=== PATIENT | female | born 1985 | race Caucasian/White ===

== ENCOUNTER → 2016-10-04 | Outpatient (CLI) | payer OTHER ==
[~2016-10-04] MED LIST: CYCL10TA6 PO; ESCI10TA17 PO; GABA1CAP5 PO; GADAVIST IV PRN; IBUP-1451 PO; LORA-741 PO; NRN400 PO; RXC5 PO; SYMIN/8045 INH; VNTHFA/IN INH
--- NOTE | 2016-10-04 11:22 | DIAGNOSTIC IMAGING REPORT ---
MRI OF THE LUMBAR SPINE WITH AND WITHOUT CONTRAST CLINICAL HISTORY: Acute back pain radiating into left lower extremity. COMPARISON STUDY: Lumbar spine MRI June 30, 2016. TECHNIQUE: Utilizing a 0.7 Georgette open magnet and dedicated coil, multiplanar, multiecho imaging of the lumbar spine was performed before and after uneventful IV administration of 14 mL of Gadavist. FINDINGS: Alignment of the lumbar spine is anatomic. For purposes of numbering on this exam, the L5-S1 disc space is assigned to axial image 23 of 25. Vertebral body heights are maintained. There is no marrow replacement. Discogenic changes are noted at the L4-L5 level. There is no intracanalicular mass or fluid collection. The conus terminates at the lower L1 level. Paravertebral soft tissues are unremarkable. There are findings suggestive of a left-sided hemilaminotomy at the L4-L5 level. L1-2: The central canal and neural foramen are patent. L2-3: The central canal and neural foramina are patent L3-4: There is mild disc bulge with a tiny central disc protrusion and annular tear. This is slightly increased since prior exam. The central canal and neural foramen are patent. L4-5: There is disc space narrowing with a disc bulge and central disc protrusion. This is unchanged. There is mild narrowing of the central canal and lateral recesses as well as mild narrowing of the right neural foramen. L5-S1: The central canal and neural foramen are patent. IMPRESSION: 1. Postsurgical findings at the L4-L5 level, as described above. 2. Disc bulge with small central disc protrusion at L4-L5 that result in mild narrowing of the central canal, lateral recesses and right neural foramen, similar to prior MRI. 3. Disc bulge with tiny central disc protrusion and annular tear at L3-L4 which is slightly increased since prior exam. No significant central canal stenosis at this level. Electronically signed by: Mariano Alegria M.D. 10/04/2016 11:21 AM Dictated Date/Time: 10/04/2016 11:12 AM
== END | disposition home or self-care (01) ==
LOC: C.OPENMRI 08:54
PROVIDERS: ATTEND Family Medicine
DX: M51.26 Other intervertebral disc displacement, lumbar region (principal)

== ENCOUNTER 2016-11-29 06:04 | Inpatient (IN) | payer OTHER ==
[2016-11-25 11:46] VITALS: BMI 48.0
--- NOTE | 2016-11-25 12:32 | PAT Medication Instructions ---
Service Date Nov 25, 2016. Current Home Medication List Albuterol Hfa (Ventolin Hfa), 2 PUFFS INH Q4 Budesonide/Formoterol Fumarate (Symbicort 80/4.5 Inhaler), 2 PUFFS INH BID Cyclobenzaprine Hcl (Flexeril), 1 TAB PO HS PRN for Muscle Spasms Escitalopram (Lexapro), 10 MG PO HS Gabapentin (Gabapentin), 400 MG PO BID Gabapentin (Neurontin), 1,200 MG PO HS Ibuprofen Tab (Motrin), 800 MG PO DAILY PRN for Pain Lorazepam (Ativan), 0.5 MG PO BID PRN for Anxiety/Agitation Medication Instructions For Your Scheduled Surgery Ibuprofen Tab (Motrin), 800 MG PO DAILY PRN for Pain (patient stopped around ) - Take the following medications the morning of surgery with a sip of water: Lorazepam (Ativan), 0.5 MG PO BID PRN for Anxiety/Agitation Gabapentin (Gabapentin) Albuterol Hfa (Ventolin Hfa), 2 PUFFS INH Q4 (if needed/ bring with you to hospital on day of surgery) Budesonide/Formoterol Fumarate (Symbicort 80/4.5 Inhaler), 2 PUFFS INH BID - Take the following medications as scheduled the night before surgery: Lorazepam (Ativan), 0.5 MG PO BID PRN for Anxiety/Agitation Gabapentin (Neurontin) Escitalopram (Lexapro), 10 MG PO HS Cyclobenzaprine Hcl (Flexeril), 1 TAB PO HS PRN for Muscle Spasms Albuterol Hfa (Ventolin Hfa), 2 PUFFS INH Q4 Budesonide/Formoterol Fumarate (Symbicort 80/4.5 Inhaler), 2 PUFFS INH BID If you have any questions please call us at [phone] or [phone] ( [place]) or [phone]
--- NOTE | 2016-11-25 12:42 | HISTORY & PHYSICAL EXAMINATION ---
DATE OF ADMISSION: 11/29/2016 HISTORY OF PRESENT ILLNESS: The patient presents to our office with a complaint of pain down her left leg to her foot. Standing and walking causes her legs to buckle and give out on her. She has trialed pain management injections which lasted about a week to week and half. Denies bowel or bladder changes. She did have prior laminectomy in 2012 at L4-L5 on the left. PAST MEDICAL HISTORY: The patient's medical history is significant for asthma, anxiety and depression, factor V clotting disorder, obesity. PAST SURGICAL HISTORY: Significant for prior laminectomy in 2012, cholecystectomy, left foot surgery, appendectomy. ALLERGIES: INCLUDE CODEINE AND FIBERGLASS. CURRENT MEDICATIONS: Include gabapentin, ibuprofen, ProAir, Symbicort, and Flexeril. All dosages unknown and not listed. SOCIAL HISTORY: She is on disability. She smokes 20 cigarettes a day. Denies alcohol. Denies drug use. FAMILY HISTORY: Significant for high cholesterol, thyroid disease, diabetes, hypertension, arthritis. REVIEW OF SYSTEMS: Significant for coughing, wheezing, asthma, weakness, back and leg pain. PHYSICAL EXAMINATION: VITAL SIGNS: 5 feet 8, 310 pounds. HEAD, EYES, EARS, NOSE, AND THROAT: Speech appropriate. CARDIOPULMONARY: No gross abnormalities. ABDOMEN: Soft, nondistended. GENITOURINARY: Deferred. NEUROLOGIC: Cranial nerves II-XII grossly intact. MUSCULOSKELETAL: She has a well-healed lumbar incision. She ambulates around the room favoring the left side. She has decreased sensation on the L4 distribution on the left. She has break-away testing left leg. ASSESSMENT: Spinal stenosis L4-L5, left-sided disc herniation at L3-L4. PLAN: At this point in time, she has trialed and failed conservative therapy, may consider surgical intervention. Surgery would require revision decompression and instrumented fusion, L3-4, L4-5. Risks, benefits, pros, cons, and alternatives were outlined in detail. She would like to proceed with the above-mentioned surgical planning.
--- NOTE | 2016-11-25 13:27 | DIAGNOSTIC IMAGING REPORT ---
CHEST 2 VIEWS ROUTINE CLINICAL HISTORY: pat preoperative evaluation COMPARISON STUDY: No previous studies for comparison. FINDINGS: The bones soft tissues and hemidiaphragms are normal. The cardiomediastinal silhouette is normal. The lungs are clear. The pulmonary vasculature is normal. IMPRESSION: Negative chest. Electronically signed by: Juwan Garcia M.D. 11/25/2016 1:25 PM Dictated Date/Time: 11/25/2016 1:25 PM
[2016-11-25 13:35] LABS: BASO % 0.2 %; BASO ABS # 0.02 K/uL (0-0.2); COMPLETE YES; EOS % 5.2 %; HEMATOCRIT 39.5 % (37-47); IG% 0.2 %; LYMPH % 28.6 %; LYMPH ABS # 2.83 K/uL (1.2-3.4); MEAN CELL VOLUME 87.4 fL (80-100); MEAN CORPUSCULAR HEMOGLOBIN 30.1 pg (25-34); MEAN CORPUSCULAR HGB CONC 34.4 g/dl (32-36); MONO % 8.1 %; NEUT % 57.7 %; PLATELET COUNT 292 K/uL (130-400); RED BLOOD COUNT 4.52 M/uL (4.2-5.4); WHITE BLOOD COUNT 9.88 K/uL (4.8-10.8)
[2016-11-25 14:40] LABS: URINE APPEARANCE CLEAR (CLEAR); URINE BILIRUBIN NEG (NEG); URINE COLOR YELLOW; URINE EPITHELIAL CELL AUTO >30 /lpf (0-5); URINE NITRITE NEG (NEG); URINE SPECIFIC GRAVITY 1.019 (1.000-1.030); UROBILINOGEN NEG (NEG)
[2016-11-25 14:45] LABS: MANUAL MICROSCOPIC REQUIRED? NO; REVIEW REQ? NO
[2016-11-25 15:22] LABS: BUN/CREATININE RATIO 11.6 (10-20); CALCIUM 9.2 mg/dl (8.5-10.1); CREATININE 0.63 mg/dl (0.60-1.20); POTASSIUM 4.2 mmol/L (3.5-5.1)
[~2016-11-29] VITALS: Ht 172.7 cm; Wt 143.9 kg
[2016-11-29] VITALS (8 sets, daily range): BP systolic 116–150; BP diastolic 69–94; PULSE 65–101; TEMP 36.6–36.8; O2SAT 92–98; Ht 172.7 cm; Wt 143.9 kg
[~2016-11-29 06:04] MED LIST changes: +CEFAZOLIN 3000 MG/65 ML D5W IV SCH; -GADAVIST IV PRN; +LACTATED RINGER'S 1000ML 1,000 ML IV SCH; +POLYMYXIN B SULFATE 100,000 UNITS in NSS 100ML IR SCH; -RXC5 PO; +VANCOMYCIN INJ 400 MG in NSS 100ML IR SCH
[2016-11-29] MEDS ORDERED: MIDAZOLAM HCL 1 MG/ML 2ML VIAL ONE (06:49)
[2016-11-29] MEDS ORDERED: FENTANYL CITRATE INJ 50 MCG/1 ML 2 ML VIAL ONE ×5 (06:49→09:45)
[2016-11-29] MEDS ORDERED: SODIUM CHLORIDE 0.9% PF 50 ML VIAL ONE (07:00)
[2016-11-29] MEDS ORDERED: BUPIVACAINE/EPINEPHRINE 0.5% MPF 1:200,000 30 ML VIAL ONE (07:00)
[2016-11-29] MEDS ORDERED: BACITRACIN 50000 UNIT VIAL ONE (07:01)
[2016-11-29] MEDS ORDERED: FLUMAZENIL 0.1 MG/1 ML 10 ML VIAL IV PRN (07:15)
[2016-11-29] MEDS ORDERED: MEPERIDINE HCL 25 MG/ML CARP IV PRN (07:15)
[2016-11-29] MEDS ORDERED: LABETALOL HCL IV 5 MG/ML 20ML IV PRN (07:15)
[2016-11-29] MEDS ORDERED: PHENYLEPHRINE 100MCG/ML 5ML SYR IV PRN (07:15)
[2016-11-29] MEDS ORDERED: ONDANSETRON INJ 2 MG/ML 2 ML VIAL IV PRN ×2 (07:15→10:00)
[2016-11-29] MEDS ORDERED: ATROPINE SULFATE 0.1 MG/ML 5ML SYR IV PRN (07:15)
[2016-11-29] MEDS ORDERED: NALOXONE HCL 0.4 MG/1 ML VIAL/CARP IV PRN ×3 (07:15→10:00)
[2016-11-29] MEDS ORDERED: EpHEDrine SULFATE INJ 50 MG/ML AMP IV PRN (07:15)
--- NOTE | 2016-11-29 07:28 | History & Physical Bridge Note ---
H&P Re-Evaluation Bridge Note: I have examined the patient, reviewed the History & Physical and in the interval since the performance of the History & Physical I have noted the following changes of clinical significance: No changes noted
[2016-11-29] MEDS ORDERED: CEFAZOLIN SOD 1 GM VIAL ONE (07:43)
[2016-11-29] MEDS ORDERED: HYDROmorphone INJ 2 MG/ML SYR/VIAL ONE ×3 (08:08→09:49)
[2016-11-29] MEDS ORDERED: FLOSEAL HEMOSTATIC MATRIX 10ML TOP ONE (09:25)
[2016-11-29] MEDS ORDERED: DEXAMETHASONE SOD INJ 4 MG/ML VIAL ONE (09:26)
[2016-11-29] MEDS ORDERED: LIDOCAINE HCL 2% 2 ML VIAL (20MG/ML) ONE (09:26)
[2016-11-29] MEDS ORDERED: METOCLOPRAMIDE HCL INJ 5 MG/ML 2 ML VIAL ONE (09:26)
[2016-11-29] MEDS ORDERED: ONDANSETRON INJ 2 MG/ML 2 ML VIAL ONE ×2 (09:26→11:12)
[2016-11-29] MEDS ORDERED: ROCURONIUM BROMIDE 10 MG/ML 5 ML VIAL ONE (09:26)
[2016-11-29] MEDS ORDERED: PROPOFOL IV EMULSION 10 MG/ML 20 ML VIAL IV ONE (09:26)
[2016-11-29] MEDS ORDERED: RANITIDINE HCL 25 MG/ML INJ ONE (09:26)
--- NOTE | 2016-11-29 09:43 | DIAGNOSTIC IMAGING REPORT ---
LUMBAR SPINE, INTRAOPERATIVE FLUOROSCOPY HISTORY: L3 L5 decompression and fusion. FLUOROSCOPY TIME: 26 seconds. FINDINGS: Intraoperative fluoroscopy was provided for the lumbar spine. 2 fluoroscopic spot images were obtained. Posterior decompression and fusion from L3 through L5 with pedicle screws and rods. The hardware is intact. IMPRESSION: Fluoroscopy provided for a fluoroscopy provided for L3-L5 posterior decompression and fusion. Electronically signed by: Elias Enriquez M.D. 11/29/2016 9:41 AM Dictated Date/Time: 11/29/2016 9:40 AM
[2016-11-29] MEDS ORDERED: SODIUM CHLORIDE 0.9% 1000ML 1,000 ML IV SCH (09:48)
--- NOTE | 2016-11-29 09:48 | [facility] Post Operative Brief Note ---
Immediate Operative Summary Operative Date Nov 29, 2016. Pre-Operative Diagnosis Spinal stenosis L4-L5, left-sided disc herniation at L3-L4. Post-Operative Diagnosis Spinal stenosis L4-L5, left-sided disc herniation at L3-L4. Procedure(s) Performed L3-L4, L4-L5 Lumbar Laminectomy, Decompression; Pedicle Screw Fixation Placement of Interbody Device; L4-L5 Posterolateral Fusion; Application of Allograft; Bone Morphogenetic Protein, [place] Surgeon Dr. Jimenez Federal Mediator Surgeon(s) none Estimated Blood Loss 125 cc Findings stenosis Specimens none per surgeon
[2016-11-29] MEDS ORDERED: FAMOTIDINE 20 MG TAB PO PRN (10:00)
[2016-11-29] MEDS ORDERED: METOCLOPRAMIDE HCL INJ 5 MG/ML 2 ML VIAL IV PRN (10:00)
[2016-11-29] MEDS ORDERED: ACETAMINOPHEN IV 100 ML IV PRN (10:00)
[2016-11-29] MEDS ORDERED: ALUMINUM/MAGNESIUM SUSP 30 ML UDC PO PRN (10:00)
[2016-11-29] MEDS ORDERED: DO NOT ADMINISTER FLU VACCINE PRN ×3 (10:00)
[2016-11-29] MEDS ORDERED: LORAZEPAM INJ 0.5 MG in SYRINGE 0.75 ML IV PRN (10:00)
[2016-11-29] MEDS ORDERED: BISACODYL 10 MG SUPP PR PRN (10:00)
[2016-11-29] MEDS ORDERED: MAGNESIUM HYDROXIDE SUSP 30 ML UDC PO PRN (10:00)
[2016-11-29] MEDS ORDERED: SOD PHOSPHATE/SOD BIPHOSPHATE ENEMA 132 ML BTL PR PRN (10:00)
[2016-11-29] MEDS ORDERED: hydrOXYzine HCL 25 MG TAB PO PRN (10:00)
[2016-11-29] MEDS ORDERED: DO NOT ADMINISTER PNEUMOCOCCAL VACCINE PRN ×2 (10:00)
[2016-11-29] MEDS ORDERED: PROMETHAZINE HCL INJ 12.5 MG in SODIUM CHLORIDE 0.9% 50ML 50 ML IV PRN (10:00)
[2016-11-29] MEDS: FENTANYL CITRATE INJ 50 MCG/1 ML 2 ML VIAL IV PRN ×4 (10:13→10:28)
[2016-11-29] MEDS ORDERED: HYDROmorphone HCL 0.5MG/ML 50 ML CASSETTE ONE (10:19)
[2016-11-29] MEDS: HYDROmorphone HCL 0.5MG/ML 50 ML CASSETTE IV PRN ×3 (10:21→19:03)
[2016-11-29] MEDS: HYDROmorphone INJ 2 MG/ML SYR/VIAL IV PRN ×2 (10:33→10:38)
--- NOTE | 2016-11-29 11:08 | Anesthesiology Progress Note ---
Anesthesia Post Op Note Date & Time Nov 29, 2016 at 11:07 Vital Signs Pain Intensity: 3 Vital Signs Past 12 Hours Date Time Temp Pulse Resp B/P Pulse Ox O2 Delivery O2 Flow Rate FiO2 11/29/16 11:05 36.0 81 17 141/93 98 Nasal Cannula 4 11/29/16 10:55 67 21 145/87 97 Nasal Cannula 4 11/29/16 10:45 67 16 142/80 99 Nasal Cannula 4 11/29/16 10:35 84 19 146/79 100 Nasal Cannula 4 11/29/16 10:25 86 14 153/87 100 Mask 10 11/29/16 10:15 96 14 122/84 100 Mask 10 11/29/16 10:08 36.1 100 13 131/93 100 Mask 10 11/29/16 06:24 36.7 87 18 150/94 96 Room Air Notes Mental Status: alert / awake / arousable, participated in evaluation Pt Amnestic to Procedure: Yes Nausea / Vomiting: adequately controlled Pain: adequately controlled Airway Patency, RR, SpO2: stable & adequate BP & HR: stable & adequate Hydration State: stable & adequate Anesthetic Complications: no major complications apparent
[2016-11-29] MEDS ORDERED: GLYCOPYRROLATE INJ 0.2 MG/ML VIAL ONE (11:12)
[2016-11-29] MEDS ORDERED: NEOSTIGMINE METHYLSULFATE 1 MG/ML 10ML VIAL ONE (11:12)
[2016-11-29] MEDS: LACTATED RINGER'S 1000ML 1,000 ML IV SCH ×3 (11:56→23:27)
[2016-11-29] MEDS: ALBUTEROL HFA 8 GM INHALER INH SCH ×4 (12:43→23:26)
[2016-11-29] MEDS ORDERED: NURSING VERBAL MED ORDER ONE (13:15)
[2016-11-29] MEDS ORDERED: NICOTINE 21 MG/24 HR TDSY EXT ONE (13:30)
[2016-11-29] MEDS: GABAPENTIN 400 MG CAP PO SCH ×2 (13:31→20:43)
[2016-11-29] MEDS: CEFAZOLIN IV 3,000 MG in DEXTROSE 5% 50ML 50 ML IV SCH ×2 (15:46→23:26)
[2016-11-29] MEDS: DEXAMETHASONE INJ 6 MG in SYRINGE 0 ML IV SCH (18:30)
[2016-11-29] MEDS: ESCITALOPRAM OXALATE 10 MG TAB PO SCH (20:43)
[2016-11-29] MEDS: BUDESONIDE/FORMOTEROL FUMARATE 80/4.5 60 PUFFS/INHALER INH SCH (20:44)
[2016-11-29] MEDS: DOCUSATE SODIUM/SENNA 50/8.6MG TAB PO SCH (20:44)
--- NOTE | 2016-11-29 21:37 | OPERATIVE REPORT ---
DATE OF OPERATION: 11/29/2016 PREOPERATIVE DIAGNOSIS: Spinal stenosis. POSTOPERATIVE DIAGNOSIS: Same with evidence of fracture facet on the left at L4-L5. SURGEON: Dr. Darron Jimenez. ANESTHESIA: General. DISPOSITION: The patient awakened and taken to PACU in stable condition. HISTORY OF PATIENT'S PROBLEMS: This is a 31-year-old female that presents with above-mentioned diagnosis after failing an extensive course of nonoperative care, elected to undergo the above-mentioned procedure. Risks, benefits, pros, cons, and alternatives were outlined in detail preoperatively. PROCEDURE: The patient was met with preoperatively, case discussed and all questions were addressed. At that point, the patient was taken back to operative suite and after undergoing successful general endotracheal intubation via department of anesthesia, she was placed in prone position on the Ellis table atop the Santiago frame. All bony prominences were well padded and the eyes were inspected to ensure there was no external pressure placed upon them. At this point, the lumbar spine was prepped and draped in normal sterile fashion. Sharp dissection with the assistance of Bovie cautery was performed down to and exposing remaining lamina and transverse processes of L3, L4 and L5 bilaterally. Revision complete laminectomy of L4, partial laminectomy of L3 was performed addressing significant lateral recess and foraminal stenosis. This actually noted was a facet fracture at L4-L5 on the left. This was removed in its entirety for complete decompression. Pedicle screws then placed in L3, L4, L5 bilaterally with assistance of fluoroscopy and appropriate size eliud provisionally placed. Through transforaminal approach on the left, complete discectomy of L4-L5 was performed, endplates curetted to subcortical bleeding bone and an 11 x 26 mm PEEK cage filled with Phuong bone grafting tapped into position. The rods were then locked into final position bilaterally and transverse processes of L3, L4, L5 burred to subcortical bleeding bone. Infuse collagen sponge combined with Mastergraft and locally harvested morselized autograft was placed in the posterior gutters. A 7 flat RAHEL drain inserted. Incision was closed with 1-0 Vicryl in the fascia, 2-0 Vicryl subcutaneously, 4-0 Monocryl for final skin closure. Steri-Strips and sterile dressing placed. The patient was awakened and taken to PACU in stable condition. I attest to the content of the Intraoperative Record and any orders documented therein. Any exceptio ns are noted below.
[2016-11-30] MEDS: DEXAMETHASONE INJ 6 MG in SYRINGE 0 ML IV SCH ×2 (01:46→10:00)
[2016-11-30] MEDS: ALBUTEROL HFA 8 GM INHALER INH SCH ×6 (03:37→23:47)
[2016-11-30 03:49] VITALS: BP 103/50; PULSE 72; TEMP 36.7; O2SAT 94
[2016-11-30 05:39] LABS: BASO % 0.1 %; BASO ABS # 0.01 K/uL (0-0.2); COMPLETE YES; HEMATOCRIT 36.6 % (37-47); IG% 0.3 %; LYMPH % 5.4 %; MEAN CELL VOLUME 89.3 fL (80-100); MEAN CORPUSCULAR HEMOGLOBIN 29.8 pg (25-34); MEAN CORPUSCULAR HGB CONC 33.3 g/dl (32-36); MEAN PLATELET VOLUME 11.1 fL (7.4-10.4); MONO % 4.2 %; PLATELET COUNT 252 K/uL (130-400); WHITE BLOOD COUNT 18.57 K/uL (4.8-10.8)
[2016-11-30 05:57] LABS: BUN/CREATININE RATIO 13.1 (10-20); CALCIUM 8.6 mg/dl (8.5-10.1); CREATININE 0.69 mg/dl (0.60-1.20); POTASSIUM 4.7 mmol/L (3.5-5.1)
[2016-11-30] MEDS ORDERED: DC PCA SCH (06:00)
[2016-11-30] MEDS ORDERED: HYDROmorphone INJ 1 MG/ML SYR IV PRN (06:00)
[2016-11-30] MEDS ORDERED: NURSING DECISION MEDICATION ORDER SCH ×2 (06:30→07:30)
[2016-11-30] MEDS: OXYCODONE HCL IR 5 MG TAB (IMMEDIATE RELEASE) PO PRN ×4 (07:21→22:32)
[2016-11-30 07:36] VITALS: BP 138/82; PULSE 77; TEMP 36.7; O2SAT 96
[2016-11-30] MEDS ORDERED: COUGH DROP (SUGAR FREE) LOZ 24 LOZ/1 BOX PO PRN (07:45)
[2016-11-30] MEDS: NICOTINE 21 MG/24 HR TDSY EXT SCH (07:58)
--- NOTE | 2016-11-30 08:25 | PROGRESS NOTE ---
DATE: 11/30/2016 Postop day 1. Back pain controlled. Leg pain improved. Vital signs stable. T-max 36.7. RAHEL drained 60 mL. Hematocrit this a.m. is 36.6. PHYSICAL EXAMINATION: She is up and ambulatory. Leg pain markedly improved. ASSESSMENT: Status post lumbar decompression and fusion. PLAN: At this time, will continue physical therapy today, advance her bowel regimen and anticipate home possibly tomorrow or .
[2016-11-30] MEDS: HYDROmorphone INJ 0.5 MG/0.5 ML SYR IV PRN ×4 (08:44→23:03)
[2016-11-30] MEDS: GABAPENTIN 400 MG CAP PO SCH ×3 (09:13→21:01)
[2016-11-30] MEDS: BUDESONIDE/FORMOTEROL FUMARATE 80/4.5 60 PUFFS/INHALER INH SCH ×2 (09:15→21:00)
[2016-11-30] MEDS: LORAZEPAM 0.5 MG TAB PO PRN (10:00)
[2016-11-30 10:44] VITALS: BP 156/71; PULSE 83; O2SAT 98
[2016-11-30 12:08] VITALS: BP 153/89; PULSE 75; TEMP 36.7; O2SAT 94
[2016-11-30 15:20] VITALS: BP 101/67; PULSE 73; TEMP 36.8; O2SAT 92
[2016-11-30] MEDS: ESCITALOPRAM OXALATE 10 MG TAB PO SCH (21:00)
[2016-11-30] MEDS: DOCUSATE SODIUM/SENNA 50/8.6MG TAB PO SCH (21:01)
[2016-11-30 22:55] VITALS: BP 114/54; PULSE 75; TEMP 36.5; O2SAT 97
[2016-12-01] MEDS: OXYCODONE HCL IR 5 MG TAB (IMMEDIATE RELEASE) PO PRN ×5 (03:13→20:49)
[2016-12-01] MEDS: HYDROmorphone INJ 0.5 MG/0.5 ML SYR IV PRN ×2 (04:12→08:42)
[2016-12-01] MEDS: ALBUTEROL HFA 8 GM INHALER INH SCH ×6 (04:12→23:32)
[2016-12-01] MEDS: POLYETHYLENE (MIRALAX) 17 GM PACK PO SCH ×4 (06:24→23:32)
[2016-12-01 07:27] VITALS: BP 133/80; PULSE 65; TEMP 36.6; O2SAT 98
--- NOTE | 2016-12-01 07:48 | PROGRESS NOTE ---
DATE: 12/01/2016 SUBJECTIVE: She is here postoperative day 2 lumbar decompression and instrumented fusion of L4-L5. She is doing well. No radicular leg pain. Back pain is controlled. She is passing flatus. Small bowel movement yesterday. RAHEL drain output last shift was 50 mL. Yesterday in physical therapy, she was ambulating roughly 325 feet. No other complaints. PHYSICAL EXAMINATION: GENERAL: She is sitting on the edge of the bed. She is in no obvious distress. VITAL SIGNS: Stable. BACK: Lumbar dressing clean, dry and intact. LOWER EXTREMITIES: Calves are soft and nontender. RUY hose intact. Strength is intact. ASSESSMENT: Postoperative day 2 lumbar decompression and fusion. PLAN: Maintain RAHEL drain and dressing. Continue DVT prophylaxis in the form of TEDs and SCDs. Continue with pain control. Continue ambulation. Anticipate discharge home tomorrow.
[2016-12-01] MEDS: NICOTINE 21 MG/24 HR TDSY EXT SCH (08:20)
[2016-12-01] MEDS: GABAPENTIN 400 MG CAP PO SCH ×3 (08:24→20:49)
[2016-12-01] MEDS: BUDESONIDE/FORMOTEROL FUMARATE 80/4.5 60 PUFFS/INHALER INH SCH ×2 (08:25→20:50)
[2016-12-01 09:06] VITALS: BP 135/83; PULSE 76
[2016-12-01] MEDS: ACETAMINOPHEN 500 MG TAB PO PRN ×2 (13:20→20:49)
[2016-12-01 15:28] VITALS: BP 123/79; PULSE 70; TEMP 36.6; O2SAT 95
[2016-12-01] MEDS: DOCUSATE SODIUM/SENNA 50/8.6MG TAB PO SCH (20:49)
[2016-12-01] MEDS: ESCITALOPRAM OXALATE 10 MG TAB PO SCH (20:49)
[2016-12-01 23:00] VITALS: BP 104/65; PULSE 76; TEMP 36.6; O2SAT 100
[2016-12-02] MEDS: ALBUTEROL HFA 8 GM INHALER INH SCH ×3 (03:43→11:43)
[2016-12-02] MEDS: OXYCODONE HCL IR 5 MG TAB (IMMEDIATE RELEASE) PO PRN ×3 (04:43→12:49)
[2016-12-02] MEDS: POLYETHYLENE (MIRALAX) 17 GM PACK PO SCH ×2 (06:37→11:43)
[2016-12-02] MEDS: LORAZEPAM 0.5 MG TAB PO PRN (06:39)
[2016-12-02 06:51] VITALS: BP 156/78; PULSE 66; TEMP 36.6; O2SAT 100
[2016-12-02] MEDS ORDERED: RXC5 PO (07:35)
--- NOTE | 2016-12-02 07:36 | Discharge Instructions ---
Discharge Instructions Date of Service Dec 02, 2016. Admission Reason for Admission: Lumbar Spinal Stenosis Discharge Discharge Diagnosis / Problem: pos top Discharge Goals Goal(s): Decrease discomfort, Improve function, Increase independence Activity Recommendations Activity Limitations: per Instructions/Follow-up section Lifting Limitations: no more than 5 pounds Shower/Bathe: no limitations . Current Hospital Diet Patient's current hospital diet: Regular Diet Discharge Diet Recommended Diet: Regular Diet Procedures Procedures Performed: L3-L4, L4-L5 Lumbar Laminectomy, Decompression; Pedicle Screw Fixation Placement of Interbody Device; L4-L5 Posterolateral Fusion; Application of Allograft; Bone Morphogenetic Protein, Phuong Pending Studies Studies pending at discharge: no Medical Emergencies . Who to Call and When: Medical Emergencies: If at any time you feel your situation is an emergency, please call 911 immediately. . Non-Emergent Contact Non-Emergency issues call your: Surgeon Call Non-Emergent contact if: you have a fever, your pain is not controlled, your pain is worsening, wound has increased drainage, wound has increased redness, you have any medication questions . "Provider Documentation" section prepared by Ghazala Dorsey. VTE Core Measure Inpt VTE Proph given/why not?: T.E.DCarlos Stockings
[2016-12-02 07:53] VITALS: BP 156/78; PULSE 66; TEMP 36.6; O2SAT 100
[2016-12-02] MEDS: NICOTINE 21 MG/24 HR TDSY EXT SCH (08:13)
[2016-12-02] MEDS: BUDESONIDE/FORMOTEROL FUMARATE 80/4.5 60 PUFFS/INHALER INH SCH (08:13)
[2016-12-02] MEDS: GABAPENTIN 400 MG CAP PO SCH (08:13)
--- NOTE | 2016-12-02 08:18 | PROGRESS NOTE ---
DATE: 12/02/2016 She is postop day 3 lumbar decompression and fusion. She is doing well. She has no radicular leg pain. Back pain is controlled. RAHEL drain output last shift was 30 mL. She has had a bowel movement yesterday. She is ambulating several hundred feet in physical therapy. No other complaints. PHYSICAL EXAMINATION: VITAL SIGNS: Stable. GENERAL: She is sitting, eating breakfast, in no obvious distress. LOWER EXTREMITIES: Calves are soft and nontender and neurovascularly intact. ASSESSMENT: Postoperative day 3 lumbar decompression and fusion. PLAN: Will discontinue RAHEL drain and dressing change. Discharge her home today. Continue with pain control. Continue with DVT prophylaxis in the form of TEDs.
[2016-12-02 08:30] VITALS: BP 127/80; PULSE 95
--- NOTE | 2016-12-02 08:36 | DISCHARGE SUMMARY ---
DATE OF DISCHARGE: 12/02/2016. SUBJECTIVE: She entered the hospital on 11/29/2016 with a preoperative diagnosis of spinal stenosis as well as facet fracture on the left at L4-L5. She underwent revision decompression and instrumented fusion L3-4, L4-5. Postoperatively, she did well. Pain controlled. Lab values were within normal limits during her hospital stay. She continued to make progress in physical therapy. She was subsequently discharged home on postoperative day 3. PAST MEDICAL HISTORY: The patient's medical history is significant for asthma, anxiety, depression, factor V clotting disorder, obesity. PAST SURGICAL HISTORY: Significant for prior laminectomy in 2011, cholecystectomy, left foot surgery, appendectomy. ALLERGIES: INCLUDE CODEINE AND FIBERGLASS. MEDICATIONS UPON DISCHARGE: Per chart review. She will follow up in our office in 2 weeks to assess her progress and wound evaluation. Any further questions can be found in the chart for review.
--- NOTE | 2016-12-03 07:25 | EDITING REQUIRED CODING QUERY ---
CODING QUERY To promote full compliance with coding requirements relating to patient care, provider participation is requested in all cases of credit card control clerk uncertainty. Please assist us with the question(s) below: Coding Question(s): Dr. Jimenez, In the operative report, you documented "evidence of fracture facet on the left at L4-L5." Please clarify the origin of the fracture: ( ) Traumatic Cause: ( ) Compression ( ) Fatigue ( ) Medical/Surgical procedure ( ) Osteoporotic ( ) Pathologic Cause: ( ) Other, please explain Physician's Response(s): Thank you for your time and prompt response. Radha Juarez, BOOT MAKER, SAP HANA ARCHITECT
== END 2016-12-02 13:00 | disposition home or self-care (01) | DRG 460 ==
LOC: ENRESERVTM → ENRESERVDT → C.ACU 06:04 → C.3E 07:30
PROVIDERS: ADMIT Orthopaedic Surgery Orthopaedic Surgery of the Spine; ATTEND Orthopaedic Surgery Orthopaedic Surgery of the Spine
PROC: 0SG1071 Fusion of 2 or more Lumbar Vertebral Joints with Autologous Tissue Substitute, Posterior Approach, Posterior Column, Open Approach (ICD-10-PCS; principal; 2016-11-29 07:45)
PROC: 3E0U0GB Introduction of Recombinant Bone Morphogenetic Protein into Joints, Open Approach (ICD-10-PCS; principal; 2016-11-29 07:45)
PROC: 0SG00AJ Fusion of Lumbar Vertebral Joint with Interbody Fusion Device, Posterior Approach, Anterior Column, Open Approach (ICD-10-PCS; principal; 2016-11-29 07:45)
PROC: 0ST20ZZ Resection of Lumbar Vertebral Disc, Open Approach (ICD-10-PCS; principal; 2016-11-29 07:45)
DX: M48.06 Spinal stenosis, lumbar region (principal); D68.51 Activated protein C resistance; Z68.42 Body mass index [BMI] 45.0-49.9, adult; M84.48XA Pathological fracture, other site, initial encounter for fracture; M51.26 Other intervertebral disc displacement, lumbar region; J45.909 Unspecified asthma, uncomplicated; M19.90 Unspecified osteoarthritis, unspecified site; G89.4 Chronic pain syndrome; M10.9 Gout, unspecified; F41.9 Anxiety disorder, unspecified; F32.9 Major depressive disorder, single episode, unspecified; F17.210 Nicotine dependence, cigarettes, uncomplicated; E66.01 Morbid (severe) obesity due to excess calories; Z86.2 Personal history of diseases of the blood and blood-forming organs and certain disorders involving the immune mechanism; Z79.51 Long term (current) use of inhaled steroids; Z79.899 Other long term (current) drug therapy

== ENCOUNTER 2018-09-27 05:48 | Observation (INO) ==
--- NOTE | 2018-09-07 11:30 | Anesthesiology Consultation ---
Date of Service September 07, 2018 Assessment & Plan (1) Encounter for pre-operative examination: Plan: - Check test AM DOS Chart Review Chart Review: Acceptable Risk for Surgery and Patient seen in Pre Admission Testing Teaching & Discussion Pre-Anesthesia Teaching/Discussion Notes: Instructed NPO after midnight before surgery,except medications with 15 cc of water. Medication instructions provided according to the PAT guidelines. History Surgery Operation Date: 09/27/18 11:55 Proposed Procedures p C4-C5, C5-C6 Anterior Cervical Discectomy and Fusion - Darron Jimenez, Height/Weight Height: 5 ft 8 in Weight: 151.4 kg Allergies Allergy/AdvReac Type Severity Reaction Status Date / Time codeine Allergy Severe SHORTNESS Verified 08/31/18 12:05 OF BREATH FIBERGLASS Allergy Unknown AIRWAY Uncoded 09/07/18 11:27 SWELLING FROM FIBERGLASS DUST WHEN CAST CAME OFF Medications Home Medications Medication Instructions Recorded Confirmed Last Taken albuterol sulfate 2 puff INHALATION QID PRN 08/31/18 08/31/18 Unknown budesonide-formoterol [Symbicort] 2 puff INHALATION BID 08/31/18 08/31/18 Unknown escitalopram oxalate 10 mg PO HS 08/31/18 08/31/18 Unknown gabapentin 1,200 mg PO HS 08/31/18 08/31/18 Unknown gabapentin 800 mg PO BID 08/31/18 08/31/18 Unknown Past Medical History Medical History Anxiety and depression Asthma Bulging of cervical intervertebral disc LUE NEUROPATHY/WEAKNESS Diverticulitis REMOTE Factor 5 Leiden mutation, heterozygous DIAGNOSED AFTER WORKUP DUE TO FAMILY HISTORY; NO PERSONAL HX OF CLOTS/ISSUES Morbid obesity TEODORA (obstructive sleep apnea) PER RECORDS; PATIENT DENIES Past Surgical History Surgical History History of back surgery x2; L3-L5 lumbar laminectomy, decompression, PSF, pedicle screw fixation, iliac bolt fixation= 11/29/16= Grade view 1, MAC 3, ETT 7.0 at [facility] Hx of appendectomy Hx of cholecystectomy Hx of foot surgery LEFT Past Anesthesia History No Hx of Anesthesia Complications Mother- "Slow to wake." PONV. Maternal grandmother- "Slow to wake" History of PONV No Motion Sickness Screening History of Motion Sickness: No STOP BANG Total 1 Social History Smoking Status: Current every day smoker tobacco type: cigarettes Smoking cigarettes per day: <1 PPD X 13 YEARS Do You Dip or Chew Tobacco: No Hx Alcohol Use: No Hx Substance Use: No Exercise / Class Metabolic Activity II 4-5 Yardwork/Stairs/Walk up hill Review of Systems URI symptoms improving. Patient denies chest pain, shortness of breath, dyspnea on exertion, reflux, wheezing, palpitations. Physical Exam Vital Signs VITALS BP 125/84 P 79 TEMP 98.0 SP02 95%RA RESP 18 Full neck and c-spine range of motion. Mild cervicalgia with extension. Short, thick neck. Full TMJ range of motion. TMD 3 finger breaths (Difficult to palpate) Mallampati Score 1 Dentition: missing molars/sides, crowns on sides/molar Lungs: clear throughout to auscultation Cardiac: regular rate and rhythm, no murmurs noted, distant heart sounds Spine: normal Carotid arteries: negative bruit Extremities: no edema Testing Electrocardiogram Date: 09/07/18 Findings: + NSR @ (79) Chest X-Ray Date: 09/07/18 Findings: + NAD Laboratory Results 09/07/18 11:55 09/07/18 11:55 Blood Type A Positive 09/07/18 11:55 Antibody Screen NEGATIVE 09/07/18 11:55 PT 10.6 Seconds (9.0-12.0) 09/07/18 11:55 INR 1.1 (0.9-1.1) 09/07/18 11:55 APTT 28.5 Seconds (21.0-31.0) 09/07/18 11:55 Urine Color Yellow 09/07/18 11:55 Urine Appearance Clear (Clear) 09/07/18 11:55 Urine pH 6.5 (4.5-7.5) 09/07/18 11:55 Ur Specific Coral 1.025 (1.000-1.030) 09/07/18 11:55 Urine Protein Negative (Negative) 09/07/18 11:55 Urine Glucose (UA) Negative (Negative) 09/07/18 11:55 Urine Ketones Negative (Negative) 09/07/18 11:55 Urine Nitrite Negative (Negative) 09/07/18 11:55 Ur Leukocyte Esterase Negative (Negative) 09/07/18 11:55
--- NOTE | 2018-09-07 11:31 | PAT Medication Instructions ---
Medication Instructions Date of Service September 07, 2018 Home Medications albuterol sulfate 2 puff INHALATION QID PRN budesonide-formoterol [Symbicort] 2 puff INHALATION BID escitalopram oxalate 10 mg PO HS gabapentin 1,200 mg PO HS gabapentin 800 mg PO BID Take morning of surgery With a small sip of water, OTHERWISE NOTHING TO EAT OR DRINK AFTER MIDNIGHT: albuterol sulfate 2 puff INHALATION QID PRN (use if needed; please bring with you to hospital day of surgery if possible) budesonide-formoterol [Symbicort] 2 puff INHALATION BID gabapentin 800 mg PO BID Take evening before surgery albuterol sulfate 2 puff INHALATION QID PRN (if needed) budesonide-formoterol [Symbicort] 2 puff INHALATION BID escitalopram oxalate 10 mg PO HS gabapentin 1,200 mg PO HS gabapentin 800 mg PO BID Other Notes If you have any questions please call us at [phone] or [phone] or [phone] or [phone]
--- NOTE | 2018-09-07 12:19 | XRay Report ---
XR chest Pre-admission PA/Lat CLINICAL HISTORY: pat preoperative evaluation COMPARISON STUDY: No previous studies for comparison. FINDINGS: The bones soft tissues and hemidiaphragms are normal. The cardiomediastinal silhouette is n ormal. The lungs are clear. The pulmonary vasculature is normal. IMPRESSION: Negative chest. The above report was generated using voice recognition software. It may contain grammatical, syntax or spelling errors. Electronically signed by: Juwan Garcia M.D. 09/07/2018 12:18 PM
[2018-09-07 13:17] LABS: Appearance Urine Clear (Clear); Bilirubin Urine Negative (Negative); Color Urine Yellow; Glucose Urine UA Negative (Negative); Ketones Urine Negative (Negative); Leukocyte Esterase Urine Negative (Negative); Nitrite Urine Negative (Negative); Protein Urine Negative (Negative); Specific Gravity Urine 1.025 (1.000-1.030); Urobilinogen Urine Negative (Negative); pH Urine 6.5 (4.5-7.5)
[2018-09-07 13:20] LABS: Basophils # (auto) 0.03 K/uL (0-0.2); Basophils % (auto) 0.3 %; Eosinophils # (auto) 0.47 K/uL (0-0.5); Eosinophils % (auto) 4.3 %; Hematocrit (blood only) 42.7 % (37-47); Hemoglobin 13.8 g/dL (12.0-16.0); Immature Granulocytes # (auto) 0.02 K/uL (0.00-0.02); Immature Granulocytes % (auto) 0.2 %; Lymphocytes # (auto) 3.09 K/uL (1.2-3.4); Lymphocytes % (auto) 28.3 %; Mean Corpuscular Hgb Conc 32.3 g/dL (32-36); Mean Corpuscular Volume 90.9 fL (80-100); Mean Platelet Volume 11.4 fL (7.4-10.4); Monocytes # (auto) 0.78 K/uL (0.11-0.59); Monocytes % (auto) 7.1 %; Neutrophils # (auto) 6.53 K/uL (1.4-6.5); Neutrophils % (auto) 59.8 %; Platelet Count 309 K/uL (130-400); RDW Coefficient of Variation 13.7 % (11.5-14.5); RDW Standard Deviation 45.8 fL (36.4-46.3); White Blood Count 10.92 K/uL (4.8-10.8)
[2018-09-07 13:25] LABS: BUN Creatinine Ratio 11.5 (10-20); Calcium 9.1 mg/dl (8.5-10.1); Creatinine Clr Calc Pharmacy 167.9 ml/min; Est GFR (African American) 123.7; Est GFR (Non-African American) 106.7; Potassium 4.2 mmol/L (3.5-5.1)
[2018-09-07 13:32] LABS: INR 1.1 (0.9-1.1); Partial Thromboplastin Ratio 1.1; Partial Thromboplastin Time 28.5 Seconds (21.0-31.0); Prothrombin Time 10.6 Seconds (9.0-12.0)
[2018-09-27] MEDS ORDERED: GABAPENTIN 300 MG x 3 PO SCH (06:00)
[2018-09-27] MEDS ORDERED: ACETAMINOPHEN 500 MG TAB PO SCH (06:00)
[2018-09-27] MEDS ORDERED: CeleBREX 200 MG CAP PO SCH (06:00)
[2018-09-27] MEDS ORDERED: CEFAZOLIN 3000MG 65 ML IV SCH (06:00)
[2018-09-27] MEDS ORDERED: LACTATED RINGER'S 1,000 ML IV SCH (06:00)
[2018-09-27] MEDS ORDERED: fentaNYL citrate 100 MCG/2 ML VIAL ONE ×5 (06:27→09:27)
[2018-09-27] MEDS ORDERED: MIDAZOLAM HCL 1 MG/ML 2ML VIAL ONE (06:27)
[2018-09-27] MEDS ORDERED: HYDROmorphone INJ 2 MG/ML SYR/VIAL ONE ×3 (06:27→09:16)
[2018-09-27] MEDS ORDERED: ROCURONIUM BROMIDE 10 MG/ML 5 ML VIAL ONE (06:31)
[2018-09-27] MEDS ORDERED: GLYCOPYRROLATE 0.2 MG/ML VIAL ONE (06:31)
[2018-09-27] MEDS ORDERED: NEOSTIGMINE METHYLSULFATE 1 MG/ML 10ML VIAL ONE (06:31)
[2018-09-27] MEDS ORDERED: PROPOFOL IV EMULSION 10 MG/ML 20 ML VIAL IV ONE ×2 (06:31→08:25)
[2018-09-27] MEDS ORDERED: DEXAMETHASONE SOD INJ 4 MG/ML VIAL ONE (06:31)
[2018-09-27] MEDS ORDERED: LIDOCAINE HCL 2% 2 ML VIAL/AMP(20MG/ML) INFIL ONE (06:31)
[2018-09-27] MEDS ORDERED: ONDANSETRON INJ 2 MG/ML 2 ML VIAL ONE (06:31)
[2018-09-27] MEDS ORDERED: BACITRACIN INJ 50,000 UNIT VIAL ONE (06:51)
[2018-09-27] MEDS ORDERED: PROMETHAZINE HCL 12.5 MG in SODIUM CHLORIDE 0.9% 50 ML IV PRN (07:26)
[2018-09-27] MEDS ORDERED: PHENYLEPHRINE 100MCG/ML 5ML SYR IV PRN (07:26)
[2018-09-27] MEDS ORDERED: ONDANSETRON INJ 2 MG/ML 2 ML VIAL IV PRN ×2 (07:26→11:11)
[2018-09-27] MEDS ORDERED: ATROPINE SULFATE 0.1 MG/ML 10ML SYR IV PRN (07:26)
[2018-09-27] MEDS ORDERED: ePHEDrine sulfate 50 MG/ML AMP IV PRN (07:26)
[2018-09-27] MEDS ORDERED: HYDROmorphone INJ 1 MG/ML SYRINGE IV PRN (07:26)
--- NOTE | 2018-09-27 07:32 | History & Physical Bridge Note ---
Date of Service September 27, 2018 History & Physical Bridge Note I have examined the patient, reviewed the History & Physical and in the interval since the performance of the History & Physical I have noted the following changes of clinical significance: no changes noted
--- NOTE | 2018-09-27 07:33 | History & Physical Report ---
Date of Service September 27, 2018 Assessment & Plan (1) Cervical stenosis of spinal canal: Anterior cervical discectomy and fusion C4-5 C5-6 Present on Admission?: Yes History of Present Illness Chief Complaint: Neck and arm pain Primary Care Provider: Alysha Pickard MD This is a 33-year-old female neck and arm pain. After failing a course of nonoperative care she is here for surgical intervention. Allergies Allergy/AdvReac Type Severity Reaction Status Date / Time codeine Allergy Severe SHORTNESS Verified 08/31/18 12:05 OF BREATH FIBERGLASS Allergy Unknown AIRWAY Uncoded 09/07/18 11:27 SWELLING FROM FIBERGLASS DUST WHEN CAST CAME OFF Home Medications Home Medications Medication Instructions Recorded Confirmed Type albuterol sulfate 2 puff INHALATION QID PRN 08/31/18 09/27/18 History budesonide-formoterol [Symbicort] 2 puff INHALATION BID 08/31/18 09/27/18 History escitalopram oxalate 10 mg PO HS 08/31/18 09/27/18 History gabapentin 1,200 mg PO HS 08/31/18 09/27/18 History gabapentin 400 mg PO BID 08/31/18 09/27/18 History Past Med/Surg History Medical History Anxiety and depression Asthma Bulging of cervical intervertebral disc LUE NEUROPATHY/WEAKNESS Diverticulitis REMOTE Factor 5 Leiden mutation, heterozygous DIAGNOSED AFTER WORKUP DUE TO FAMILY HISTORY; NO PERSONAL HX OF CLOTS/ISSUES Morbid obesity TEODORA (obstructive sleep apnea) PER RECORDS; PATIENT DENIES Surgical History History of back surgery x2; L3-L5 lumbar laminectomy, decompression, PSF, pedicle screw fixation, iliac bolt fixation= 11/29/16= Grade view 1, MAC 3, ETT 7.0 at [facility] Hx of appendectomy Hx of cholecystectomy Hx of foot surgery LEFT Social History Current Living Situation: Spouse Other Information That Helps Us Care for You: No Feels Safe at Home: Yes Safety Concerns: Feels Safe At This Time Smoking Status: Current every day smoker Tobacco Type: cigarettes Cigarettes per Day: <1 PPD X 13 YEARS Do You Dip or Chew Tobacco: No Hx Alcohol Use: No Hx Substance Use: No Beliefs That Will Affect Care: None Preferred Language: Frisian Communication Ability: Effective Physical Exam 2 Vital Signs (Past 24 Hours): Last Vital Signs Temp 36.5 C 09/27/18 06:20 Pulse 96 H 09/27/18 06:20 Resp 18 09/27/18 06:20 BP 163/80 H 09/27/18 06:20 Pulse Ox 96 09/27/18 06:20 Results & Data Medications Administered Acetaminophen (Tylenol) 1,000 mg PO PREOP PATRICIA Stop: 09/27/18 18:00 Last Admin: 09/27/18 06:51 Dose: 1,000 mg Celecoxib (Celebrex) 200 mg PO PREOP PATRICIA Stop: 09/27/18 18:00 Last Admin: 09/27/18 06:51 Dose: 200 mg Gabapentin (Neurontin) 900 mg PO PREOP PATRICIA Stop: 09/27/18 18:00 Last Admin: 09/27/18 06:51 Dose: 900 mg Lactated Ringer's (Lr) 1,000 mls @ 15 mls/hr IV .Q24H PATRICIA Stop: 09/27/18 18:00 Last Admin: 09/27/18 06:45 Dose: 15 mls/hr
[2018-09-27] MEDS ORDERED: raNITIdine HCl 25 MG/ML VIAL ONE (08:25)
[2018-09-27] MEDS ORDERED: METOCLOPRAMIDE HCL INJ 5 MG/ML 2 ML VIAL ONE (08:25)
[2018-09-27] MEDS ORDERED: ESMOLOL HCL INJ 10 MG/ML 10ML VIAL IV ONE (08:25)
[2018-09-27] MEDS ORDERED: ALBUTEROL HFA INHALER 8.5 GM ONE (08:46)
[2018-09-27] MEDS ORDERED: LARYING-O-JET KIT (LTA) ONE (08:46)
[2018-09-27] MEDS ORDERED: FLOSEAL HEMOSTATIC MATRIX 10ML TOP ONE (09:15)
--- NOTE | 2018-09-27 09:25 | Operative Report ---
Post Operative Report Pre & Post Diagnosis Operation Date: 09/27/18 07:45 Pre-Op Diagnosis: Cervical spinal stenosis with disc herniation and radiculopathy Post-Op Diagnosis: Same Procedure Operation Date: 09/27/18 07:45 Actual Procedures #1 anterior cervical discectomy bilateral foraminotomies C4-5 C5-6. #2 anterior cervical arthrodesis C4-5 C5-6. #3 placement of cortical allograft 8 mm in height with DBM at C4-5 C5-6. #4 application doyle plate and screws across C4-5 C5-6. Surgeon Darron Jimenez, Berry Picker Ghazala Dorsey Estimated Blood Loss 25 Findings Consistent with Post-Op Diagnosis Specimens None Description of Procedure Patient was met with preoperatively case discussed all questions addressed. After informed consent obtained patient was taken to the operative suite underwent intubation and placed in the supine position Ellis table with the head Alvarado head resident. All bony prominences well-padded eyes inspected to ensure no external pressure placed upon. This point the anterior cervical spine was prepped and draped in normal sterile fashion. The assistance of fluoroscopy identified the C5 vertebral body and a transverse incision was placed on the right anterior aspect of the cervical spine overlying this region. Sharp dissection with the assistance of bipolar electrocautery was performed down to and exposing the anterior cervical spine from C4-C6. Self- retaining retractors placed. Then verified my position with fluoroscopy. A complete discectomy of C4-5 was performed out to the uncovertebral joints bilaterally. [place] distracting pins were utilized to assist in visualization. Removed all posterior annular fibers performed bilateral foraminotomies. Identified a massive disc herniation favoring the left side. This was removed in its entirety. Endplates were then burred to subcortical bleeding bone and an 8 mm cortical allograft filled with DBM tamped in position. Then proceeded to C5-6. Again complete discectomy performed out to the uncovertebral joints bilaterally. Removed all posterior annular fibers and longitudinal ligament. There is evidence of massive disc herniation at this area as well. It was removed in its entirety. In place were then burred to subcortical bleeding bone and an 8 mm cortical allograft filled with DBM tamped in position. All distraction apparatus was removed doyle plate and screws applied with the assistance of fluoroscopy. Incision was then copious irrigated explored to ensure no damage to surrounding structures remaining incision was then closed with 2 Vicryl in a fashion for Monocryl for final skin closure Steri-Strip sterile dressings placed. Patient will continue to PACU stable condition. Please note Ghazala Dorsey was present throughout the entire procedure involved in patient positioning complex portions of the surgery and fashion closure. I attest to the content of the Intraoperative Record and any orders documented therein. Any exceptions are noted below.
[2018-09-27] MEDS ORDERED: ALBUT/IPRATROP 3MG/0.5MG NEB 3 ML VIAL NEB STA (09:46)
[2018-09-27] MEDS ORDERED: METOPROLOL TARTRATE 1 MG/ML VIAL IV ONE (09:51)
[2018-09-27] MEDS ORDERED: LABETALOL HCL IV 5 MG/ML 20ML IV ONE (09:51)
[2018-09-27] MEDS: fentaNYL citrate 100 MCG/2 ML VIAL IV PRN ×4 (10:11→10:31)
[2018-09-27] MEDS ORDERED: ALBUTEROL HFA 8 GM INHALER INH PRN (11:11)
[2018-09-27] MEDS ORDERED: ACETAMINOPHEN 1,000 MG/100 ML VIAL IV PRN (11:11)
[2018-09-27] MEDS ORDERED: NALOXONE HCL 0.4 MG/1 ML VIAL/CARP IV PRN (11:11)
[2018-09-27] MEDS ORDERED: SODIUM CHLORIDE 0.9% 1000ML 1,000 ML IV SCH (11:11)
[2018-09-27] MEDS ORDERED: HYDROmorphone INJ 0.5 MG/0.5 ML SYR IV PRN (11:11)
[2018-09-27] MEDS ORDERED: RACEPINEPHRINE 2.25% NEBU SOLN 0.5 ML VIAL INH PRN (11:11)
[2018-09-27] MEDS ORDERED: DiphenhydrAMINE HCL 50 MG/ML VIAL IV PRN (11:11)
[2018-09-27] MEDS ORDERED: LORazepam 0.5 MG TAB PO PRN (11:11)
[2018-09-27] MEDS ORDERED: MAGNESIUM HYDROXIDE SUSP 30 ML UDC PO PRN (11:11)
[2018-09-27] MEDS ORDERED: DO NOT ADMINISTER PNEUMOCOCCAL VACCINE PRN (11:11)
[2018-09-27] MEDS ORDERED: LORazepam 0.5 MG/1 ML VIAL IV PRN (11:11)
[2018-09-27] MEDS ORDERED: DO NOT ADMINISTER FLU VACCINE PRN (11:11)
[2018-09-27] MEDS ORDERED: DEXAMETHASONE SOD PHOSPHATE 8 MG in SYRINGE 0 ML IV PRN (11:11)
[2018-09-27] MEDS ORDERED: SCOPOLAMINE 1.5 MG TDSY TD SCH (12:00)
--- NOTE | 2018-09-27 12:04 | Fluoroscopy Report ---
FL cervical 2-3V CLINICAL HISTORY: ACDF C4-C6 COMPARISON STUDY: None. FLUOROSCOPY TIME: 14 seconds. FLUOROSCOPIC IMAGES: 2 FINDINGS: These images demonstrate a C4-C6 anterior discectomy and fusion. Hardware is intact. Surgic al drain is noted. IMPRESSION: Fluoroscopic images demonstrating a C4-C6 anterior discectomy and fusion. Electronically signed by: Mariano Alegria M.D. 09/27/2018 12:03 PM
[2018-09-27] MEDS: HYDROCODONE/ACETAMOPHEN 5/325MG TAB PO PRN ×3 (13:09→23:45)
--- NOTE | 2018-09-27 13:11 | Anesthesiology Progress Note ---
Date of Service September 27, 2018 Anesthesia Post Procedure Vital Signs Vital Signs: Temp Pulse Pulse Resp BP BP Pulse Ox 09/27/18 12:02 61 18 127/75 98 09/27/18 11:28 36.4 C L 64 18 131/79 100 09/27/18 11:25 63 16 100 09/27/18 11:00 36.7 C 64 16 141/71 H 100 09/27/18 10:45 58 L 18 130/78 98 09/27/18 10:30 36.3 C L 59 L 18 135/79 100 09/27/18 10:20 52 L 16 137/83 100 09/27/18 10:10 56 L 16 142/87 H 100 09/27/18 10:00 57 L 16 135/86 100 09/27/18 09:57 53 L 14 100 09/27/18 09:50 60 16 158/87 H 100 09/27/18 09:43 36.0 C L 70 14 139/99 97 09/27/18 06:20 36.5 C 96 H 18 163/80 H 96 Pain Intensity Left Neck: Pain Intensity: 9 Posterior Neck: Pain Intensity: 3 Notes Mental Status: alert / awake / arousable Patient Amnestic to Procedure: Yes Nausea / Vomiting: adequately controlled Pain: adequately controlled Airway Patency, RR, SpO2: stable & adequate BP & HR: stable & adequate Hydration State: stable & adequate Anesthetic Complications: no major complications apparent
[2018-09-27] MEDS: GABAPENTIN 400 MG CAP PO SCH ×2 (13:36→16:12)
[2018-09-27] MEDS: CEFAZOLIN 2000MG 2,000 MG/15 ML SYR IV SCH ×2 (16:10→23:35)
[2018-09-27] MEDS: CHECK SCOPOLAMINE PATCH PLACEMENT SCH ×2 (16:11→23:45)
[2018-09-27] MEDS ORDERED: ESCITALOPRAM OXALATE 10 MG TAB PO SCH (21:00)
[2018-09-27] MEDS ORDERED: GABAPENTIN 400 MG CAP PO SCH (21:00)
[2018-09-27] MEDS: DOCUSATE SODIUM 100 MG CAP PO SCH (21:12)
[2018-09-27] MEDS: BUDESONIDE/FORMOTEROL FUMARATE 80/4.5 60 PUFFS/INHALER INH SCH (21:14)
[2018-09-28] MEDS: HYDROCODONE/ACETAMOPHEN 5/325MG TAB PO PRN ×2 (05:04→10:41)
[2018-09-28] MEDS: CHECK SCOPOLAMINE PATCH PLACEMENT SCH (07:17)
[2018-09-28] MEDS: DOCUSATE SODIUM 100 MG CAP PO SCH (08:37)
[2018-09-28] MEDS: BUDESONIDE/FORMOTEROL FUMARATE 80/4.5 60 PUFFS/INHALER INH SCH (08:37)
--- NOTE | 2018-09-28 08:49 | Discharge Summary ---
Date of Service September 28, 2018 Admission HPI Per Admitting Provider This is a 33-year-old female neck and arm pain. After failing a course of nonoperative care she is here for surgical intervention. Principal Diagnosis Cervical spinal stenosis with radiculopathy Discharge Data Allergies Allergy/AdvReac Type Severity Reaction Status Date / Time codeine Allergy Severe SHORTNESS Verified 08/31/18 12:05 OF BREATH FIBERGLASS Allergy Unknown AIRWAY Uncoded 09/07/18 11:27 SWELLING FROM FIBERGLASS DUST WHEN CAST CAME OFF Procedures Performed Operation Date: 09/27/18 07:45 Actual Procedures p Anterior Cervical Discectomy and Fusion C4-C5, C5-C6 (Not Applicable) - Darron Jimenez DO Ordered Studies 09/27/18 07:45 FL cervical 2-3V Routine FL fluoroscopy <1hr Routine Hospital Course (1) Cervical stenosis of spinal canal: Patient underwent anterior cervical discectomy and fusion tolerated as well as taken the orthopedic floor postoperative. Postop day 1 swallowing well no hoarseness arm symptoms markedly improved. Subsequently discharged home. Discharge orders and instructions from the chart for further review. Total Time Total Time Spent Total Time Spent (In Minutes): Not applicable Discharge Plan Discharge Items Patient Disposition: Home - Self-Care Reason For Visit: CERVICAL SPINAL STENOSIS Discharge Diagnosis: Cervical spinal stenosis Discharge Goals: Decrease discomfort Activity: Per 'Additional Instructions' section Non-emergency contact: Primary Care Provider Call non-emergency contact if: you have any medication questions Follow-up/Referrals: Alysha Pickard MD [Primary Care Provider] - Diet: Regular Addtl Provider Instructions: ACTIVITY RECOMMENDATIONS: SELF CARE INSTRUCTIONS AFTER CERVICAL FUSIONS 1. No smoking. Smoking drastically decreases the chance of a solid fusion. 2. No bending, lifting more than 5 pounds, or twisting (roll like a log when turning in bed). 3. You may shower 3 days after surgery. Thoroughly dry wound. Do not soak in the tub. 4. Cervical collar: Must be worn at all times including sleeping. You may remove the brace only to bath, eat and if you are sitting in a recliner. 5. Please walk as much as you can for exercise. Gradually increase the distance that you walk as your endurance increases. SPECIAL CARE INSTRUCTIONS: VERY IMPORTANT TO READ AND REVIEW A. Do not take any anti-inflammatory medications (i.e. Indocin, Advil, Aspirin, Naprosyn, Aleve, Motrin, etc.) as these may inhibit the chance of a solid fusion. Tylenol is okay to take. B. Your surgical incision has been closed with a cosmetic suture under the skin that will dissolve in about 6 weeks. In 14 days, you can use a pair of clean scissors and cut the suture that is left outside of the skin at the ends of your incision. C. Complications are uncommon, but please contact us if you have any signs or symptoms of: 1. wound infection (fever higher than 102.5 degrees F, redness, separation of wound, drainage, or increasing pain from the incision) 2. blood clots in legs (pain, swelling, redness and warmth in legs) 3. urinary tract infection (fever higher than 102.5 degrees, burning upon urination or increased frequency of urination) 4. nerve problems (inability to walk on your toes or heels, numbness, loss of bowel or bladder control) 5. any other symptoms that concern you. D. Please call the office at if you have any concerns or questions about your operation or recovery. MANAGING PAIN AFTER SPINAL SURGERY 1. Narcotic medication is intended for short-term use and will be provided for surgical pain. Surgical pain usually lasts for a period of 4-6 weeks. Narcotic medication includes Percocet, Vicodin, Darvocet, Tylenol #3 or Lortab. 2. Longer-term pain is more appropriately treated with non-narcotic medication such as Tylenol ES. 3. Muscle spasm is not appropriately treated with narcotics. Muscle relaxers such as Soma, Flexeril or Skelaxin can be used along with Tylenol ES. 4. Remember that we all live with some "aches and pains". This is not unusual or uncommon after an injury or as we get older. 5. We will provide appropriate medication within the normal guidelines of their prescribed use. We will also be very cautious and aware of potential abuse and extended duration of patients' medication needs. 6. Please allow 2-3 days to process refills. Prescriptions will not be mailed but must be picked up at the office. FOLLOW UP VISIT: Keep your scheduled follow-up appointment. Any questions, please call the office at . Prescriptions: New hydrocodone-acetaminophen [[place]] 5-325 mg Tablet 1 tab PO Q4H PRN (Reason: Pain) Qty: 30 RF: 0 Continue gabapentin 400 mg Capsule 1,200 mg PO HS RF: 0 gabapentin 400 mg Capsule 400 mg PO BID RF: 0 albuterol sulfate 90 mcg/actuation Hfa Aerosol Inhaler 2 puff INHALATION QID PRN (Reason: Wheezing) RF: 0 escitalopram oxalate 10 mg Tablet 10 mg PO HS RF: 0 budesonide-formoterol [Symbicort] 80-4.5 mcg/actuation Hfa Aerosol Inhaler 2 puff INHALATION BID RF: 0 Stand-Alone Forms: [facility] Discharge Orders: Discharge Order (Routine); Ordered 09/28/18 Ordered By: Darron Jimenez Admission Data Admit Date/Time: 09/27/18 09:29 Attending Provider: Darron Jimenez Admit Provider: Darron Jimenez Primary Care Provider: Alysha Pickard Service: Surgical Services
[2018-09-28] MEDS: CEFAZOLIN 2000MG 2,000 MG/15 ML SYR IV SCH (08:58)
[2018-09-29] MEDS ORDERED: BISACODYL 5 MG TABEC PO PRN (09:28)
== END 2018-09-28 10:54 | disposition home or self-care (01) ==
LOC: ASU 05:48 → 3E 05:48

== ENCOUNTER 2020-05-14 10:12 | Inpatient (IN) ==
[2020-05-14] MEDS ORDERED: PROMETHAZINE HCL 12.5 MG in SODIUM CHLORIDE 0.9% 50 ML IV PRN (13:09)
[2020-05-14] MEDS ORDERED: ACETAMINOPHEN 500 MG TAB PO PRN (13:09)
[2020-05-14] MEDS ORDERED: HYDROmorphone INJ 0.5 MG/0.5 ML SYR IV PRN (13:09)
[2020-05-14] MEDS ORDERED: ONDANSETRON INJ 2 MG/ML 2 ML VIAL IV PRN (13:09)
[2020-05-14] MEDS ORDERED: TRAMADOL HCL 50 MG TABLET PO PRN (13:09)
[2020-05-14] MEDS ORDERED: HYDROmorphone INJ 1 MG/ML SYRINGE IV PRN (13:09)
[2020-05-14] MEDS ORDERED: LORazepam 1 MG/2 ML VIAL IV PRN (13:09)
[2020-05-14] MEDS ORDERED: METOCLOPRAMIDE HCL INJ 5 MG/ML 2 ML VIAL IV PRN (13:09)
[2020-05-14] MEDS ORDERED: LORazepam 1 MG TAB PO PRN (13:09)
[2020-05-14] MEDS ORDERED: ONDANSETRON 4 MG OD TAB PO PRN (13:09)
--- NOTE | 2020-05-14 13:41 | Hospitalist Consultation ---
Date of Consultation May 14, 2020 Assessment & Plan (1) Left cervical radiculopathy: Admitted with plan for urgent recurrent anterior cervical discectomy and fusion for intractable pain and weakness in the left upper extremity from cervical radiculopathy Plan as per orthopedic spine surgery Pain control with IV Dilaudid as needed, oxycodone as needed, tramadol as needed -Continue home gabapentin Preoperative testing to include ECG with normal sinus rhythm no ischemic changes on 05/07 was reviewed. She has no chronic kidney disease. She does have some chronic dyspnea on exertion secondary to morbid obesity and asthma but only uses her albuterol inhaler once a month. She can go up and down a flight of stairs without any angina or chest pain. She has never had any cardiac issues. She can achieve at least 4 METS. As for her leukocytosis, this is most likely secondary to demargination from high-dose prednisone over the last week that she was given to try to help the severe radiculopathy pain she was having. She had a flow cytometry test which was negative for any hematologic abnormality. Repeat WBC count here today is still elevated at 15, however all her other cell lines on the CBC are normal. She is not having any evidence of infection, fever of any sort. Leukocytosis is likely secondary to prednisone use and stress from pain. hCG urine test is negative. She is medically optimized and is at average perioperative cardiovascular risk to undergo this intermediate risk surgery and should proceed as planned. (2) Leukocytosis: As noted above, remains elevated and is likely secondary to demargination from prednisone as well as some stress response from dealing with stress of severe pain in the neck and left upper extremity. Follow CBC No evidence of infection anywhere UA showed lactobacillus species 80,000 colony-forming units which is also from a urinalysis that shows excessive contamination of epithelial cells from the vagina-this does not need to be treated. Flow cytometry negative as above (3) Asthma: No acute issues -Recommend 2 puffs of albuterol inhaler prior to going down for surgery to prevent bronchospasm -Counseled on continued cessation of nicotine/smoking-she quit 4 days prior to admission -Continue home ICS/LABA 2 puffs twice daily (4) Factor 5 Leiden mutation, heterozygous: Tested for this due to an uncle having a blood clot and factor V Leiden mutation She has never had a VTE or miscarriage -Will need SCDs after surgery, but would need to avoid heparin containing products due to cervical spine surgery (5) Gout: No acute flareups in a long time No maintenance medications for this (6) Allergic rhinitis: Currently not flaring up No medication needed (7) Anxiety and depression: Stable -Continue home escitalopram 20 mg at bedtime (8) TEODORA (obstructive sleep apnea): Is not on CPAP Follow for nocturnal hypoxemia (9) Morbid obesity: BMI is 52.3 Needs weight loss counseling (10) Current smoker: She quit 4 days prior to admission and I congratulated her for that. She requests nicotine patch-usually smokes 1 pack/day-we will start with nicotine patch 21 mg TD once daily and taper down Hold for surgery (11) DVT prophylaxis: SCDs, RUY hose, ambulation Disposition-continued stay on medical/surgical floor, plan for cervical spine surgery tomorrow Hospitalist service will continue to follow along History of Present Illness Reason for Consultation: Preoperative evaluation Requesting Physician: Dr. Jimenez Attending Physician: Darron Jimenez, DO History of Present Illness This patient is a 34-year-old female with a history of asthma, morbid obesity, TEODORA not on CPAP, anxiety with depression, factor V Leiden without history of clot, gout, lumbar spinal stenosis, seasonal allergies, and cervical HNP with radiculopathy who is admitted by the orthopedic spine surgeon for urgent cervical spine discectomy and fusion for acute intractable left upper extremity cervical radiculopathy. At her ER visit to an outside facility on 05/07 she was treated with a burst of steroids for the last week and had blood work drawn which showed a leukocytosis. A peripheral smear did show 1 blast and lymphocytosis. A flow cytometry study performed on repeat testing was negative for any hematologic abnormality. Repeat CBC did show WBC count was down to 12 from previous of 16. Her other cell lines are normal. She has no history of any hematologic issues. She has not had any fevers, shortness of breath, chest pain, worsening cough or diarrhea or urinary issues. She has been having significant neck pain and pain down the left upper extremity with weakness and numbness in the left arm which is significantly distressing to her. She has had no known COVID-19 exposures and had a COVID test performed yesterday at preoperative testing. She can typically go up and down a flight of stairs without chest pain. She does have some chronic dyspnea on exertion she relates to her asthma and is also likely secondary to her morbid obesity and deconditioning. She has never had any cardiac issues in the past. Allergies Allergy/AdvReac Type Severity Reaction Status Date / Time codeine Allergy Severe SHORTNESS Verified 05/12/20 08:31 OF BREATH FIBERGLASS Allergy Unknown AIRWAY Uncoded 05/12/20 08:31 SWELLING FROM FIBERGLASS DUST WHEN CAST CAME OFF Home Medications Home Medications Medication Instructions Recorded Confirmed Type budesonide-formoterol HFA 80 2 puff INHALATION BID #10.2 gm 01/23/19 05/14/20 Rx mcg-4.5 mcg/actuation aerosol inhaler albuterol sulfate 90 mcg/actuation 2 puff INHALATION QID PRN #18 gm 07/11/19 05/14/20 Rx aerosol inhaler cyclobenzaprine 10 mg tablet 10 mg PO TID PRN #90 tab 07/11/19 05/14/20 Rx gabapentin 400 mg capsule 400 mg PO .COMPLEX #150 cap 04/10/20 05/14/20 Rx escitalopram oxalate 20 mg PO QPM 05/09/20 05/14/20 History ibuprofen 600 mg PO TID MDD pain 05/09/20 05/14/20 History oxycodone-acetaminophen [Percocet] 1 tab PO Q6H PRN 05/09/20 05/14/20 History Patient History Medical History Allergic rhinitis Anxiety and depression Asthma uses PRN inh 1xmo on average Cervical disc disease Chronic low back pain Diverticulitis REMOTE Factor 5 Leiden mutation, heterozygous DIAGNOSED AFTER WORKUP DUE TO FAMILY HISTORY; NO PERSONAL HX OF CLOTS/ISSUES Gout Left cervical radiculopathy Leukocytosis Lumbar stenosis with neurogenic claudication Morbid obesity TEODORA (obstructive sleep apnea) does not tolerate CPAP Surgical History H/O colonoscopy H/O neck surgery ACDF 09/2018; Limited ROM up/down, side to side History of anesthesia reaction reports needing neb treatments in PACU after all previous surgeries History of back surgery x2; L3-L5 lumbar laminectomy, decompression, PSF, pedicle screw fixation, iliac bolt fixation= 11/29/16 History of unintended awareness under general anesthesia Hx of appendectomy Hx of cholecystectomy Hx of foot surgery LEFT S/P lumbar microdiscectomy "L4-5" Family History Father Diabetes Stroke Mother PONV (postoperative nausea and vomiting) Slow to wake up after anesthesia Grandmother (Maternal) PONV (postoperative nausea and vomiting) Slow to wake up after anesthesia Social History Smoking Status: Current every day smoker Cigarettes Per Day: pack per day; Second Hand Exposure: No; Do You Dip or Chew Tobacco: No; Hx Alcohol Use: No Hx Substance Use: No Preferred Language: [place]ill[place] Communication Ability: Effective Slip Seat Coverer Required: No Beliefs That Will Affect Care: None Current Living Situation: Family Current Living Situation Comment: 15 year old son Other Information That Helps Us Care for You: No Feels Safe at Home: Yes Safety Concerns: Feels Safe At This Time Assistive Devices: None Review of Systems Review of Systems: All systems reviewed & are unremarkable except as noted in HPI & below Physical Exam Constitutional: WD/WN, vitals as above + morbidly obese and healthy appearing; no acute distress Eyes: + anicteric sclerae and EOM intact bilaterally ENMT: external ear and nose normal, oropharynx normal Neck: trachea midline, no thyromegaly Respiratory: normal respiratory effort, lungs clear to auscultation Cardiovascular: RRR, no murmur, no edema Chest (Breasts): Chest: normal inspection of chest Gastrointestinal (Abdomen): normal bowel sounds, soft, nontender, no hepatosplenomegaly Musculoskeletal: Extremities: extremities normal to inspection; no cyanosis and no clubbing Skin: no rashes, warm and dry Neurologic: moves all extremities and awake Psychiatric: A+Ox3, euthymic affect Lymphatic: no lymphedema Results & Data Results & Data ([facility]) Vital Signs (Past 12 Hours) Vital Signs Temp Pulse Resp BP Pulse Ox 05/14/20 13:27 36.7 C 93 H 20 186/96 H 96 Laboratory Results 05/14/20 05/14/20 05/14/20 Range/Units 18:18 13:59 13:59 WBC 15.46 H (4.8-10.8) K/uL RBC 4.79 (4.2-5.4) M/uL Hgb 14.1 (12.0-16.0) g/dL Hct 42.9 (37-47) % MCV 89.6 (80-100) fL MCH 29.4 (25-34) pg MCHC 32.9 (32-36) g/dL RDW Std Deviation 45.7 (36.4-46.3) fL RDW Coeff of Lucia 13.9 (11.5-14.5) % Plt Count 299 (130-400) K/uL MPV 11.0 H (7.4-10.4) fL Immature Gran % (Auto) 0.5 % Neut % (Auto) 61.6 % Lymph % (Auto) 25.6 % [place] % (Auto) 7.2 % Eos % (Auto) 4.8 % Baso % (Auto) 0.3 % Neut # (Auto) 9.53 H (1.4-6.5) K/uL Lymph # (Auto) 3.96 H (1.2-3.4) K/uL [place] # (Auto) 1.11 H (0.11-0.59) K/uL Eos # (Auto) 0.74 H (0-0.5) K/uL Baso # (Auto) 0.04 (0-0.2) K/uL Immature Gran # (Auto) 0.08 H (0.00-0.02) K/uL Sodium 138 (136-145) mmol/L Potassium 4.1 (3.5-5.1) mmol/L Chloride 104 (98-107) mmol/L Carbon Dioxide 26 (21-32) mmol/L Anion Gap 8.0 (3-11) BUN 10 (7-18) mg/dl Creatinine 0.77 (0.6-1.2) mg/dl Est Cr Clr Drug Dosing 160.0 ml/min Est GFR ( Amer) 115.1 Est GFR (Non-Af Amer) 99.3 BUN/Creatinine Ratio 13.1 (10-20) Glucose 139 H (70-99) mg/dl Calcium 9.2 (8.5-10.1) mg/dl Urine Test Negative (Negative) PG Care Time/CCT Total # of Minutes Spent Total Time Spent with Patient: Total time spent is greater than 50% in coordination of care (as documented) at patient's floor/unit and/or counseling patient: Coding Level of Care Code 74393 Inpt Consult Level 3 Diagnoses Left cervical radiculopathy M54.12 Leukocytosis D72.829 Asthma J45.909 Factor 5 Leiden mutation, heterozygous D68.51 Gout M10.9 Allergic rhinitis J30.9 Anxiety and depression F41.9; F32.9 TEODORA (obstructive sleep apnea) G47.33 Morbid obesity E66.01 Current smoker F17.200 DVT prophylaxis Z29.9
[2020-05-14 14:14] LABS: Basophils # (auto) 0.04 K/uL (0-0.2); Basophils % (auto) 0.3 %; Eosinophils # (auto) 0.74 K/uL (0-0.5); Eosinophils % (auto) 4.8 %; Hematocrit (blood only) 42.9 % (37-47); Hemoglobin 14.1 g/dL (12.0-16.0); Immature Granulocytes # (auto) 0.08 K/uL (0.00-0.02); Immature Granulocytes % (auto) 0.5 %; Lymphocytes # (auto) 3.96 K/uL (1.2-3.4); Lymphocytes % (auto) 25.6 %; Mean Corpuscular Hemoglobin 29.4 pg (25-34); Mean Corpuscular Hgb Conc 32.9 g/dL (32-36); Mean Corpuscular Volume 89.6 fL (80-100); Monocytes # (auto) 1.11 K/uL (0.11-0.59); Monocytes % (auto) 7.2 %; Neutrophils # (auto) 9.53 K/uL (1.4-6.5); Neutrophils % (auto) 61.6 %; Platelet Count 299 K/uL (130-400); RDW Coefficient of Variation 13.9 % (11.5-14.5); RDW Standard Deviation 45.7 fL (36.4-46.3); Red Blood Count 4.79 M/uL (4.2-5.4); White Blood Count 15.46 K/uL (4.8-10.8)
[2020-05-14 14:36] LABS: BUN Creatinine Ratio 13.1 (10-20); Calcium 9.2 mg/dl (8.5-10.1); Est GFR (African American) 115.1; Est GFR (Non-African American) 99.3; Potassium 4.1 mmol/L (3.5-5.1)
[2020-05-14] MEDS: LACTATED RINGER'S 1,000 ML IV SCH (14:45)
[2020-05-14] MEDS: PATIENT'S HEIGHT AND/OR WEIGHT NEEDED SCH ×3 (14:45→18:12)
--- NOTE | 2020-05-14 15:06 | History & Physical Report ---
Date of Service May 14, 2020 Assessment & Plan (1) Cervical disc disease: Admission and Anticipated Discharge Date Admission Date: May 14, 2020 This time patient's had progressive neurologic decline now with advanced weakness and numbness. Her pain is not controlled with p.o. pain medication. Subsequently we will admit her have her cleared medically and undergo anterior cervical discectomy and fusion see 6 C7 with removal of instrumentation C4-C6. History of Present Illness Chief Complaint: Neck and left arm pain with progressive weakness Primary Care Provider: Alysha Pickard MD This is a 34-year-old female well-known to me that has a known cervical disc condition C6-C7. She is noting a significant decline in status over the past several days now with worsening weakness affecting the left hand and tricep. She notes loss of sensation affecting the small and ring finger on the left. The right upper extremity asymptomatic. Oral pain medication is no longer effective. Allergies Allergy/AdvReac Type Severity Reaction Status Date / Time codeine Allergy Severe SHORTNESS Verified 05/12/20 08:31 OF BREATH FIBERGLASS Allergy Unknown AIRWAY Uncoded 05/12/20 08:31 SWELLING FROM FIBERGLASS DUST WHEN CAST CAME OFF Home Medications Home Medications Medication Instructions Recorded Confirmed Type budesonide-formoterol HFA 80 2 puff INHALATION BID #10.2 gm 01/23/19 05/12/20 Rx mcg-4.5 mcg/actuation aerosol inhaler albuterol sulfate 90 mcg/actuation 2 puff INHALATION QID PRN #18 gm 07/11/19 Rx aerosol inhaler cyclobenzaprine 10 mg tablet 10 mg PO TID PRN #90 tab 07/11/19 05/12/20 Rx gabapentin 400 mg capsule 400 mg PO .COMPLEX #150 cap 04/10/20 05/12/20 Rx escitalopram oxalate 20 mg PO QPM 05/09/20 05/12/20 History ibuprofen 600 mg PO TID MDD pain 05/09/20 05/12/20 History oxycodone-acetaminophen [Percocet] 1 tab PO Q6H PRN 05/09/20 05/12/20 History triamcinolone acetonide See Rx Instructions TOPICAL BID PRN 05/09/20 05/12/20 History Past Med/Surg History Medical History Allergic rhinitis Anxiety and depression Asthma uses PRN inh 1xmo on average Cervical disc disease Chronic low back pain Diverticulitis REMOTE Factor 5 Leiden mutation, heterozygous DIAGNOSED AFTER WORKUP DUE TO FAMILY HISTORY; NO PERSONAL HX OF CLOTS/ISSUES Gout Left cervical radiculopathy Leukocytosis Lumbar stenosis with neurogenic claudication Morbid obesity TEODORA (obstructive sleep apnea) does not tolerate CPAP Surgical History H/O colonoscopy H/O neck surgery ACDF 09/2018; Limited ROM up/down, side to side History of anesthesia reaction reports needing neb treatments in PACU after all previous surgeries History of back surgery x2; L3-L5 lumbar laminectomy, decompression, PSF, pedicle screw fixation, iliac bolt fixation= 11/29/16 History of unintended awareness under general anesthesia Hx of appendectomy Hx of cholecystectomy Hx of foot surgery LEFT S/P lumbar microdiscectomy "L4-5" Family History Father Diabetes Stroke Mother PONV (postoperative nausea and vomiting) Slow to wake up after anesthesia Grandmother (Maternal) PONV (postoperative nausea and vomiting) Slow to wake up after anesthesia Social History Smoking Status: Current every day smoker Cigarettes Per Day: pack per day; Second Hand Exposure: No; Do You Dip or Chew Tobacco: No; Hx Alcohol Use: No Hx Substance Use: No Preferred Language: Estonian Communication Ability: Effective Boiling House Oiler Required: No Beliefs That Will Affect Care: None Current Living Situation: Family Current Living Situation Comment: 15 year old son Other Information That Helps Us Care for You: No Feels Safe at Home: Yes Safety Concerns: Feels Safe At This Time Assistive Devices: None Physical Exam Physical Exam: On exam the patient is obvious distress. She exhibits markedly positive Spurling's to the left. She has almost complete absence strength to the left tricep compared to 5/5 on the right. She is a 4/5 biceps on the left 5 5 on the right. Grasp is quite weak on the left compared to the right. She has marked loss of sensation to cold and light touch to the left forearm compared to the right. Heart regular in rhythm Lungs clear to auscultation Results & Data ([facility]) Vital Signs (Past 12 Hours) Vital Signs Temp Pulse Resp BP Pulse Ox 05/14/20 13:27 36.7 C 93 H 20 186/96 H 96 Code Status & VTE Plan VTE Prophylaxis Plan VTE Prophylaxis will be ordered: Yes
[2020-05-14] MEDS ORDERED: ALBUTEROL HFA 8 GM INHALER INH PRN (15:30)
[2020-05-14] MEDS: NICOTINE 21 MG/24 HR TDSY TD SCH (16:10)
[2020-05-14] MEDS ORDERED: Nursing to Pharmacy Communication SCH (18:15)
[2020-05-14 18:31] LABS: Pregnancy Test, Urine Negative (Negative)
[2020-05-14] MEDS: ESCITALOPRAM OXALATE 20 MG TAB PO SCH (20:00)
[2020-05-14] MEDS: GABAPENTIN 600 MG TAB PO SCH (20:00)
[2020-05-14] MEDS: OXYCODONE HCL IR 5 MG TAB (IMMEDIATE RELEASE) PO PRN (22:01)
[2020-05-15] MEDS: OXYCODONE HCL IR 5 MG TAB (IMMEDIATE RELEASE) PO PRN ×4 (02:56→23:57)
[2020-05-15] MEDS: LACTATED RINGER'S 1,000 ML IV SCH ×3 (02:57→19:06)
[2020-05-15] MEDS ORDERED: CEFAZOLIN 2000MG 2,000 MG/15 ML SYR IV SCH (06:00)
--- NOTE | 2020-05-15 07:33 | History & Physical Bridge Note ---
Date of Service May 15, 2020 History & Physical Bridge Note I have examined the patient, reviewed the History & Physical and in the interval since the performance of the History & Physical I have noted the following changes of clinical significance: no changes noted
[2020-05-15] MEDS: FLUTICASONE/VILANTEROL 100/25MCG 14 PUFFS/INHALER INH SCH (07:49)
[2020-05-15] MEDS: GABAPENTIN 400 MG CAP PO SCH ×2 (07:49→16:17)
[2020-05-15 07:58] LABS: Basophils # (auto) 0.04 K/uL (0-0.2); Basophils % (auto) 0.4 %; Eosinophils # (auto) 0.69 K/uL (0-0.5); Eosinophils % (auto) 6.1 %; Hematocrit (blood only) 42.1 % (37-47); Immature Granulocytes # (auto) 0.04 K/uL (0.00-0.02); Immature Granulocytes % (auto) 0.4 %; Lymphocytes # (auto) 3.19 K/uL (1.2-3.4); Lymphocytes % (auto) 28.3 %; Mean Corpuscular Hgb Conc 30.9 g/dL (32-36); Mean Corpuscular Volume 90.7 fL (80-100); Mean Platelet Volume 11.3 fL (7.4-10.4); Monocytes # (auto) 0.94 K/uL (0.11-0.59); Monocytes % (auto) 8.3 %; Neutrophils # (auto) 6.38 K/uL (1.4-6.5); Neutrophils % (auto) 56.5 %; Platelet Count 234 K/uL (130-400); RDW Coefficient of Variation 14.3 % (11.5-14.5); RDW Standard Deviation 47.1 fL (36.4-46.3); Red Blood Count 4.64 M/uL (4.2-5.4); White Blood Count 11.28 K/uL (4.8-10.8)
[2020-05-15 08:24] LABS: BUN Creatinine Ratio 14.8 (10-20); Calcium 8.6 mg/dl (8.5-10.1); Creatinine Clr Calc Pharmacy 181.9 ml/min; Est GFR (African American) 130.4; Est GFR (Non-African American) 112.5; Potassium 4.2 mmol/L (3.5-5.1)
--- NOTE | 2020-05-15 09:01 | Hospitalist Progress Note ---
Date of Service May 15, 2020 Assessment & Plan (1) Left cervical radiculopathy: Admitted with plan for urgent recurrent anterior cervical discectomy and fusion for intractable pain and weakness in the left upper extremity from cervical radiculopathy * Plan as per orthopedic spine surgery * Pain control with IV Dilaudid as needed, oxycodone as needed, tramadol as needed * Continue home gabapentin Preoperative testing to include ECG with normal sinus rhythm no ischemic changes on 05/07 was reviewed. She has no chronic kidney disease. She does have some chronic dyspnea on exertion secondary to morbid obesity and asthma but only uses her albuterol inhaler once a month. She can go up and down a flight of stairs without any angina or chest pain. She has never had any cardiac issues. She can achieve at least 4 METS. As for her leukocytosis, this is most likely secondary to demargination from high-dose prednisone over the last week that she was given to try to help the severe radiculopathy pain she was having. She had a flow cytometry test which was negative for any hematologic abnormality. Repeat WBC count here elevated at 15k on admission, however all her other cell lines on the CBC are normal. She is not having any evidence of infection, fever of any sort. * hCG urine test is negative. * Medically optimized and is at average perioperative cardiovascular risk to undergo this intermediate risk surgery and should proceed as planned OR today with Dr. Jimenez * s/p #1 removal of anterior cervical plate and screws C4-C6. #2 exploration of fusion C4-5 C5-6. #3 anterior cervical discectomy with bilateral foraminotomies C6-C7. #4 anterior cervical arthrodesis C6-C7. #5 placement of 9 mm Spira cage filled with DBM at C6-C7. #6 application of doyle plate and screws across C6-C7. EBL 25cc * Pre-op h/h 13.0/42.1 -- has been on LR @75cc/hr so expect some dilution as well as acute blood loss from surgery on AM labs * WBC trending down, 11.2k (likely from prednisone use and stress from pain) * Ancef for proph * CBC in AM (2) Leukocytosis: * As noted above, remains elevated and is likely secondary to demargination from prednisone as well as some stress response from dealing with stress of severe pain in the neck and left upper extremity. * No evidence of infection * UA showed lactobacillus species 80,000 colony-forming units which is also from a urinalysis that shows excessive contamination of epithelial cells from the vagina-this does not need to be treated. * Flow cytometry negative as above * Trending down as above (3) Asthma: * No acute issues * -Recommend 2 puffs of albuterol inhaler prior to going down for surgery to prevent bronchospasm * -Counseled on continued cessation of nicotine/smoking-she quit 4 days prior to admission * -Continue home ICS/LABA 2 puffs twice daily (4) Factor 5 Leiden mutation, heterozygous: * Tested for this due to an uncle having a blood clot and factor V Leiden mutation * She has never had a VTE or miscarriage * SCDs after surgery --> avoid heparin containing products due to cervical spine surgery (5) Gout: * No acute flareups in a long time * No maintenance medications for this (6) Allergic rhinitis: * Currently not flaring up * No medication needed (7) Anxiety and depression: * Stable * Continue home escitalopram 20 mg at bedtime (8) TEODORA (obstructive sleep apnea): * Is not on CPAP --> she states diagnosis 6 years ago but unable to tolerate mask due to claustrophobia. * Of note, patient states she is not mouth breather and may benefit from follow up with PCP/possibility of utilizing nasal pillows for TEODORA * Follow for nocturnal hypoxemia (9) Morbid obesity: * BMI is 52.3 * Weight loss counseling (10) Current smoker: * Quit 4 days prior to admission and I congratulated her for that. * She requests nicotine patch-usually smokes 1 pack/day-we will start with nicotine patch 21 mg TD once daily and taper down * Held for surgery (11) DVT prophylaxis: * SCDs, RUY hose, ambulation Disposition-continued stay on medical/surgical floor Hospitalist service will continue to follow along Admission and Anticipated Discharge Date Admission Date: May 14, 2020 Subjective Patient evaluated this afternoon following surgery. Patient states pain well controlled, 0/10 with pain management as ordered. Improved strength. Denies numbness/tingling. States she is hungry. This is her fourth back surgery and states genetic component. Denies fever, chills, chest pain, shortness of breath, abdominal pain, nausea, vomiting, dysuria at this time. Questions/concerns addressed at this time. Review of Systems Review of Systems: All systems reviewed & are unremarkable except as noted in HPI & below Physical Exam Constitutional: WD/WN, vitals as above + morbidly obese and healthy appearing; no acute distress Eyes: + anicteric sclerae and EOM intact bilaterally ENMT: external ear and nose normal, oropharynx normal Neck: trachea midline cervical collar in place Respiratory: normal respiratory effort, lungs clear to auscultation Cardiovascular: RRR, no murmur, no edema Chest (Breasts): Chest: normal inspection of chest Gastrointestinal (Abdomen): normal bowel sounds, soft, nontender, no hepatosplenomegaly Musculoskeletal: Extremities: extremities normal to inspection; no cyanosis and no clubbing Skin: no rashes, warm and dry Neurologic: moves all extremities and awake Psychiatric: A+Ox3, euthymic affect Lymphatic: no lymphedema Results & Data Results & Data ([facility]) Vital Signs (Past 12 Hours) Vital Signs Temp Pulse Resp BP Pulse Ox 05/15/20 06:27 36.5 C 83 16 137/79 93 05/14/20 23:20 36.6 C 80 16 126/73 94 Laboratory Results 05/15/20 05/15/20 05/14/20 Range/Units 07:42 07:42 18:18 WBC 11.28 H (4.8-10.8) K/uL RBC 4.64 (4.2-5.4) M/uL Hgb 13.0 (12.0-16.0) g/dL Hct 42.1 (37-47) % MCV 90.7 (80-100) fL MCH 28.0 (25-34) pg MCHC 30.9 L (32-36) g/dL RDW Std Deviation 47.1 H (36.4-46.3) fL RDW Coeff of Lucia 14.3 (11.5-14.5) % Plt Count 234 (130-400) K/uL MPV 11.3 H (7.4-10.4) fL Immature Gran % (Auto) 0.4 % Neut % (Auto) 56.5 % Lymph % (Auto) 28.3 % Thayer % (Auto) 8.3 % Eos % (Auto) 6.1 % Baso % (Auto) 0.4 % Neut # (Auto) 6.38 (1.4-6.5) K/uL Lymph # (Auto) 3.19 (1.2-3.4) K/uL Thayer # (Auto) 0.94 H (0.11-0.59) K/uL Eos # (Auto) 0.69 H (0-0.5) K/uL Baso # (Auto) 0.04 (0-0.2) K/uL Immature Gran # (Auto) 0.04 H (0.00-0.02) K/uL Sodium 139 (136-145) mmol/L Potassium 4.2 (3.5-5.1) mmol/L Chloride 107 (98-107) mmol/L Carbon Dioxide 29 (21-32) mmol/L Anion Gap 3.0 (3-11) BUN 10 (7-18) mg/dl Creatinine 0.68 (0.6-1.2) mg/dl Est Cr Clr Drug Dosing 181.9 ml/min Est GFR ( Amer) 130.4 Est GFR (Non-Af Amer) 112.5 BUN/Creatinine Ratio 14.8 (10-20) Glucose 137 H (70-99) mg/dl Calcium 8.6 (8.5-10.1) mg/dl Urine Test Negative (Negative) 05/14/20 05/14/20 Range/Units 13:59 13:59 WBC 15.46 H (4.8-10.8) K/uL RBC 4.79 (4.2-5.4) M/uL Hgb 14.1 (12.0-16.0) g/dL Hct 42.9 (37-47) % MCV 89.6 (80-100) fL MCH 29.4 (25-34) pg MCHC 32.9 (32-36) g/dL RDW Std Deviation 45.7 (36.4-46.3) fL RDW Coeff of Lucia 13.9 (11.5-14.5) % Plt Count 299 (130-400) K/uL MPV 11.0 H (7.4-10.4) fL Immature Gran % (Auto) 0.5 % Neut % (Auto) 61.6 % Lymph % (Auto) 25.6 % Thayer % (Auto) 7.2 % Eos % (Auto) 4.8 % Baso % (Auto) 0.3 % Neut # (Auto) 9.53 H (1.4-6.5) K/uL Lymph # (Auto) 3.96 H (1.2-3.4) K/uL Thayer # (Auto) 1.11 H (0.11-0.59) K/uL Eos # (Auto) 0.74 H (0-0.5) K/uL Baso # (Auto) 0.04 (0-0.2) K/uL Immature Gran # (Auto) 0.08 H (0.00-0.02) K/uL Sodium 138 (136-145) mmol/L Potassium 4.1 (3.5-5.1) mmol/L Chloride 104 (98-107) mmol/L Carbon Dioxide 26 (21-32) mmol/L Anion Gap 8.0 (3-11) BUN 10 (7-18) mg/dl Creatinine 0.77 (0.6-1.2) mg/dl Est Cr Clr Drug Dosing 160.0 ml/min Est GFR ( Amer) 115.1 Est GFR (Non-Af Amer) 99.3 BUN/Creatinine Ratio 13.1 (10-20) Glucose 139 H (70-99) mg/dl Calcium 9.2 (8.5-10.1) mg/dl Urine Test (Negative) Diagnostic Findings Fluoro Cervical 2-3V FINDINGS: Limited images secondary to positioning and field of view. Anterior plate and screw fusion with discectomy changes at what is labeled the C6-C7 level. With interval removal of the hardware at C4-C6. Endotracheal tube is present. There is an apparent surgical sponge projected over the lower anterior cervical tissues. IMPRESSION: Fluoroscopic assistance as above. Please see operative report for further details. PG Care Time/CCT Total # of Minutes Spent Total Time Spent with Patient: Total time spent is greater than 50% in coordi nation of care (as documented) at patient's floor/unit and/or counseling patient: Coding Level of Care Code 80153 Subseq Hosp Care Lvl 2 Diagnoses Left cervical radiculopathy M54.12 Leukocytosis D72.829 Asthma J45.909 Factor 5 Leiden mutation, heterozygous D68.51 Gout M10.9 Allergic rhinitis J30.9 Anxiety and depression F41.9; F32.9 TEODORA (obstructive sleep apnea) G47.33 Morbid obesity E66.01 Current smoker F17.200 DVT prophylaxis Z29.9
[2020-05-15] MEDS ORDERED: ONDANSETRON INJ 2 MG/ML 2 ML VIAL IV PRN ×2 (09:29→16:01)
[2020-05-15] MEDS ORDERED: fentaNYL citrate 100 MCG/2 ML VIAL IV PRN (09:29)
[2020-05-15] MEDS ORDERED: ATROPINE SULFATE 0.1 MG/ML 10ML SYR IV PRN (09:29)
[2020-05-15] MEDS ORDERED: ePHEDrine sulfate 50 MG/ML AMP IV PRN (09:29)
--- NOTE | 2020-05-15 09:29 | Anesthesiology Consultation ---
Date of Service May 15, 2020 Assessment & Plan (1) Encounter for pre-operative examination: Chart Review Chart Review: Acceptable Risk for Surgery Consults Requested none ASA ASA3 Proposed Anesthesia Anesthesia Type: General Risk / Benefits Reviewed With: PT / POA / Parent / Guardian, Accepts Plan and Informed Consent Obtained History Surgery Operation Date: 05/15/20 13:05 Proposed Procedures p C6-C7 Anterior Cervical Discectomy and Fusion, C4-C6 Hardware Removal, Spinal Cord Monitoring - Darron Jimenez, Height/Weight Height: 5 ft 8 in Weight: 156 kg Allergies Allergy/AdvReac Type Severity Reaction Status Date / Time codeine Allergy Severe SHORTNESS Verified 05/12/20 08:31 OF BREATH FIBERGLASS Allergy Unknown AIRWAY Uncoded 05/12/20 08:31 SWELLING FROM FIBERGLASS DUST WHEN CAST CAME OFF Medications Home Medications Medication Instructions Recorded Confirmed Last Taken budesonide-formoterol HFA 80 2 puff INHALATION BID #10.2 gm 01/23/19 05/14/20 Unknown mcg-4.5 mcg/actuation aerosol inhaler albuterol sulfate 90 mcg/actuation 2 puff INHALATION QID PRN #18 gm 07/11/19 05/14/20 Unknown aerosol inhaler cyclobenzaprine 10 mg tablet 10 mg PO TID PRN #90 tab 07/11/19 05/14/20 Unknown gabapentin 400 mg capsule 400 mg PO .COMPLEX #150 cap 04/10/20 05/14/20 Unknown escitalopram oxalate 20 mg PO QPM 05/09/20 05/14/20 Unknown ibuprofen 600 mg PO TID MDD pain 05/09/20 05/14/20 Unknown oxycodone-acetaminophen [Percocet] 1 tab PO Q6H PRN 05/09/20 05/14/20 Unknown Active Medications Generic Name Dose Route Start Last Admin Trade Name Freq PRN Reason Stop Dose Admin Escitalopram Oxalate 20 mg 05/14/20 21:00 05/14/20 20:00 Escitalopram Oxalate 20 Mg Tab PO 06/13/20 20:59 20 mg QPM PATRICIA Administration Fluticasone/Vilanterol 1 puffs 05/15/20 09:00 05/15/20 07:49 Fluticasone/Vilanterol 100/25mcg 14 Puffs/Inhaler INH 06/14/20 08:59 1 puffs DAILY PATRICIA Administration Protocol Gabapentin 400 mg 05/15/20 09:00 05/15/20 07:49 Gabapentin 400 Mg Cap PO 06/14/20 08:59 400 mg BID@0900,1400 PATRICIA Administration Gabapentin 1,200 mg 05/14/20 21:00 05/14/20 20:00 Gabapentin 600 Mg Tab PO 06/13/20 20:59 1,200 mg HS PATRICIA Administration Hydromorphone HCl 1 mg 05/14/20 13:09 05/14/20 18:22 Hydromorphone Inj 1 Mg/Ml Syringe IV 05/28/20 13:08 1 mg Q3H PRN Administration severe pain (scale 7-10) Lactated Ringer's 1,000 mls @ 75 mls/hr 05/14/20 13:15 05/15/20 02:57 Lr IV 06/13/20 13:14 75 mls/hr .[id number] PATRICIA Administration Cefazolin Sodium 2,000 mg in 15 mls @ 3.75 mls/min 05/15/20 06:00 05/15/20 07:48 Ancef 2000mg IV 05/16/20 05:59 3.75 mls/min PREOP PATRICIA Administration Protocol Miscellaneous 1 ea 05/14/20 15:44 05/15/20 06:26 Remove Nicoderm Patch N/A 06/13/20 15:43 1 ea [id number] PATRICIA Administration Nicotine 21 mg 05/14/20 15:45 05/14/20 16:10 Nicotine 21 Mg/24 Hr Tdsy TD 06/13/20 15:44 21 mg QAM PATRICIA Administration Oxycodone HCl 5 - 10 mg 05/14/20 13:09 05/15/20 07:35 Oxycodone Hcl Ir 5 Mg Tab (Immediate Release) PO 05/28/20 13:08 10 mg Q4H PRN Administration Moderate-Severe Pain NPO Date Last Intake of Fluids: 05/15/20 Time Last Intake of Fluids: 03:00 Last Intake of Fluids Comment: small sip with medications Date Last Intake of Solids: 05/14/20 Past Medical History Medical History Allergic rhinitis Anxiety and depression Asthma uses PRN inh 1xmo on average Cervical disc disease Chronic low back pain Current smoker Diverticulitis REMOTE Factor 5 Leiden mutation, heterozygous DIAGNOSED AFTER WORKUP DUE TO FAMILY HISTORY; NO PERSONAL HX OF CLOTS/ISSUES Gout Left cervical radiculopathy Leukocytosis Lumbar stenosis with neurogenic claudication Morbid obesity TEODORA (obstructive sleep apnea) does not tolerate CPAP Exercise / Class Metabolic Activity II 4-5 Yardwork/Stairs/Walk up hill Past Family History Family History Father Diabetes Stroke Mother PONV (postoperative nausea and vomiting) Slow to wake up after anesthesia Grandmother (Maternal) PONV (postoperative nausea and vomiting) Slow to wake up after anesthesia Past Surgical History Surgical History H/O colonoscopy H/O neck surgery ACDF 09/2018; Limited ROM up/down, side to side History of anesthesia reaction reports needing neb treatments in PACU after all previous surgeries History of back surgery x2; L3-L5 lumbar laminectomy, decompression, PSF, pedicle screw fixation, iliac bolt fixation= 11/29/16 History of unintended awareness under general anesthesia Hx of appendectomy Hx of cholecystectomy Hx of foot surgery LEFT S/P lumbar microdiscectomy "L4-5" Past Anesthesia History No Hx of Anesthesia Complications and No Family Hx of Anesthesia Complications History of PONV No Hx of PONV and No Hx of Motion Sickness Social History Smoking Status: Current every day smoker tobacco type: cigarettes Smoking cigarettes per day: pack per day Do You Dip or Chew Tobacco: No Hx Alcohol Use: No Hx Substance Use: No substance use type: does not use Physical Exam Vital Signs Last Vital Signs Temp 97.7 F 05/15/20 06:27 Pulse 83 05/15/20 06:27 Resp 16 05/15/20 06:27 BP 137/79 05/15/20 06:27 Pulse Ox 93 05/15/20 06:27 ENMT Mouth: no dentition abnormality Thyromental Distance: > or= 3.5 Finger Breadths Mallampati Class: III Neck normal visual inspection Respiratory normal respiratory effort Auscultation: lungs clear to auscultation bilaterally Cardiovascular Rate/Rhythm: regular rate and regular rhythm Testing Laboratory Results 05/15/20 07:42 05/15/20 07:42 Urine Test Negative (Negative) 05/14/20 18:18 05/14/20 18:18 Urine Test Negative Electrocardiogram Date: 09/07/18 Findings: + NSR @ (79 bpm) Chest X-Ray Date: 05/08/20 FINDINGS: The cardiac and mediastinal contours are normal. There is no evidence of focal pulmonary consolidation. There is no evidence of failure. No pleural effusions are visualized.[ IMPRESSION: No active disease in the chest. Cervical Spine Date: 09/27/18 FINDINGS: These images demonstrate a C4-C6 anterior discectomy and fusion. Hardware is intact. Surgical drain is noted. IMPRESSION: Fluoroscopic images demonstrating a C4-C6 anterior discectomy and fusion.
[2020-05-15] MEDS ORDERED: BACITRACIN INJ 50,000 UNIT VIAL ONE (11:06)
[2020-05-15] MEDS ORDERED: CEFAZOLIN 1000MG 1,000 MG/7.5 ML SYR IV ONE (11:26)
[2020-05-15] MEDS ORDERED: CEFAZOLIN 2000MG 2,000 MG/15 ML SYR IV ONE (11:28)
--- NOTE | 2020-05-15 13:34 | Operative Report ---
Post Operative Report Pre & Post Diagnosis Operation Date: 05/15/20 13:05 Pre-Op Diagnosis: Herniated pulposis with radiculopathy C6-C7 Morbid obesity Post-Op Diagnosis: Same I identified the patient and participated in the time-out.: Yes Procedure Operation Date: 05/15/20 13:05 Actual Procedures #1 removal of anterior cervical plate and screws C4-C6. #2 exploration of fusion C4-5 C5-6. #3 anterior cervical discectomy with bilateral foraminotomies C6-C7. #4 anterior cervical arthrodesis C6-C7. #5 placement of 9 mm Spira cage filled with DBM at C6-C7. #6 application of doyle plate and screws across C6- C7. Surgeon Darron Jimenez, DO It Architecture Consultant Ghazala Dorsey Estimated Blood Loss 25 Findings See Below Is 5 foot 8 weighing 156 kg with a BMI in excess of 52. The patient's body habitus did create significant technical difficulty both with body positioning exposure and perform the actual procedure and decompression. He did require longus instruments and retractors in order to perform her procedure. This added at least 50% increase to the operative time. Specimens None Indications This is a 34-year-old female presents with severe left arm pain and weakness progressive in nature and subsequently here for urgent decompression fusion. Description of Procedure Patient was met with identified informed consent obtained. Patient was then taken to the operative suite underwent intubation placed in supine position Ellis table with the head Alvarado head ordered. All bony prominences well- padded eyes inspected to ensure no external pressure placed upon the. This point the anterior cervical spine was prepped and draped in a sterile fashion. Sharp dissection with assistance of bipolar cautery was then performed down to and exposing the anterior cervical spine from C4-C7. The plate was identified and removed without difficulty. I explored the fusion mass noting it to be mature and intact. And then performed a complete discectomy of C6-C7 up to the uncovertebral's bilaterally. [place] distracting pins were utilized to assist in visualization. Removed all posterior annular fibers longitudinal ligament bilateral foraminotomies performed. Several large fragments of disc material noted within the left neural foramen. After complete decompression endplates were burred to subcortical being bone and 9 mm Spira cage filled with DBM tapped in position. 5 complete and screws was then applied with the assistance of fluoroscopy. Incision was then copiously irrigated explored to ensure no damage to surrounding structures remaining bleeding. 10 round RAHEL drain inserted. The incision was then closed with 2 Vicryl in a fashion of 4 Monocryl for final skin closure. Steri-Strip sterile dressings placed. Patient waken taken PACU stable condition. Please note spinal cord monitoring was utilized at the procedure no changes noted. Lastly Ghazala Dorsey was present at the entire surgery involved the patient positioning complex portions of the surgery and final skin closure. I attest to the content of the Intraoperative Record and any orders documented therein. Any exceptions are noted below.
--- NOTE | 2020-05-15 15:07 | Anesthesiology Progress Note ---
Date of Service May 15, 2020 Anesthesia Post Procedure Vital Signs Vital Signs: Temp Pulse Pulse Resp BP Pulse Ox 05/15/20 14:55 80 12 146/87 H 95 05/15/20 14:45 80 14 157/86 H 95 05/15/20 14:35 78 14 131/87 94 05/15/20 14:25 83 14 154/94 H 97 05/15/20 14:15 82 14 153/91 H 95 05/15/20 14:05 76 14 141/78 H 94 05/15/20 13:56 98.1 F 79 16 146/94 H 93 05/15/20 09:28 98.4 F 79 20 181/91 H 97 05/15/20 06:27 97.7 F 83 16 137/79 93 05/14/20 23:20 97.9 F 80 16 126/73 94 05/14/20 16:04 98.2 F 83 16 154/69 H 93 05/14/20 15:35 96 H 158/99 H Pain Intensity Left Shoulder: Pain Intensity: 4 Neck: Pain Intensity: 4 Transfer of Care Handoff Completed per policy Notes Mental Status: alert / awake / arousable and participated in evaluation Patient Amnestic to Procedure: Yes Nausea / Vomiting: adequately controlled Pain: adequately controlled Airway Patency, RR, SpO2: stable & adequate BP & HR: stable & adequate Hydration State: stable & adequate Anesthetic Complications: no major complications apparent and Pt Satisfied with anesthetic care
[2020-05-15] MEDS ORDERED: LORazepam 0.5 MG TAB PO PRN (16:01)
[2020-05-15] MEDS ORDERED: OXYCODONE HCL IR 5 MG TAB (IMMEDIATE RELEASE) PO PRN (16:01)
[2020-05-15] MEDS ORDERED: DEXAMETHASONE SOD PHOSPHATE 8 MG in SYRINGE 0 ML IV PRN (16:01)
[2020-05-15] MEDS ORDERED: RACEPINEPHRINE 2.25% NEBU SOLN 0.5 ML VIAL INH PRN (16:01)
[2020-05-15] MEDS ORDERED: MAGNESIUM HYDROXIDE SUSP 30 ML UDC PO PRN (16:01)
[2020-05-15] MEDS ORDERED: ACETAMINOPHEN 1,000 MG/100 ML VIAL IV PRN (16:01)
[2020-05-15] MEDS ORDERED: TRAMADOL HCL 50 MG TABLET PO PRN (16:01)
[2020-05-15] MEDS ORDERED: PROMETHAZINE HCL 12.5 MG in SODIUM CHLORIDE 0.9% 50 ML IV PRN (16:01)
[2020-05-15] MEDS ORDERED: DO NOT ADMINISTER FLU VACCINE PRN (16:01)
[2020-05-15] MEDS ORDERED: LORazepam 0.5 MG/1 ML VIAL IV PRN (16:01)
[2020-05-15] MEDS ORDERED: SOD PHOSPHATE/SOD BIPHOSPHATE ENEMA 132 ML BTL PR PRN (16:01)
[2020-05-15] MEDS ORDERED: METOCLOPRAMIDE HCL INJ 5 MG/ML 2 ML VIAL IV PRN (16:01)
[2020-05-15] MEDS ORDERED: FAMOTIDINE 20 MG TAB PO PRN (16:01)
[2020-05-15] MEDS ORDERED: ALUMINUM/MAGNESIUM SUSP 30 ML UDC PO PRN (16:01)
[2020-05-15] MEDS ORDERED: ONDANSETRON 4 MG OD TAB PO PRN (16:01)
[2020-05-15] MEDS ORDERED: NALOXONE HCL 0.4 MG/1 ML VIAL/CARP IV PRN (16:01)
[2020-05-15] MEDS ORDERED: DO NOT ADMINISTER PNEUMOCOCCAL VACCINE PRN (16:01)
[2020-05-15] MEDS ORDERED: ACETAMINOPHEN 500 MG TAB PO PRN (16:01)
[2020-05-15] MEDS: NICOTINE 21 MG/24 HR TDSY TD SCH (16:17)
[2020-05-15] MEDS: POLYETHYLENE (MIRALAX) 17 GM PACK PO SCH ×2 (18:32→23:58)
[2020-05-15] MEDS: CEFAZOLIN 2000MG 2,000 MG/15 ML SYR IV SCH (20:40)
[2020-05-15] MEDS: ESCITALOPRAM OXALATE 20 MG TAB PO SCH (20:40)
[2020-05-15] MEDS: GABAPENTIN 600 MG TAB PO SCH (20:40)
[2020-05-15] MEDS ORDERED: DOCUSATE SODIUM/SENNA 50/8.6MG TAB PO SCH (21:00)
[2020-05-16] MEDS: OXYCODONE HCL IR 5 MG TAB (IMMEDIATE RELEASE) PO PRN ×2 (04:46→10:15)
[2020-05-16] MEDS: CEFAZOLIN 2000MG 2,000 MG/15 ML SYR IV SCH (04:55)
[2020-05-16] MEDS: POLYETHYLENE (MIRALAX) 17 GM PACK PO SCH ×2 (06:12→11:54)
[2020-05-16] MEDS: LACTATED RINGER'S 1,000 ML IV SCH (06:12)
[2020-05-16 06:16] LABS: Basophils # (auto) 0.01 K/uL (0-0.2); Basophils % (auto) 0.1 %; Eosinophils # (auto) 0.01 K/uL (0-0.5); Eosinophils % (auto) 0.1 %; Hematocrit (blood only) 40.2 % (37-47); Hemoglobin 12.8 g/dL (12.0-16.0); Immature Granulocytes # (auto) 0.07 K/uL (0.00-0.02); Immature Granulocytes % (auto) 0.4 %; Lymphocytes # (auto) 2.09 K/uL (1.2-3.4); Lymphocytes % (auto) 11.7 %; Mean Corpuscular Hgb Conc 31.8 g/dL (32-36); Mean Corpuscular Volume 91.2 fL (80-100); Mean Platelet Volume 11.2 fL (7.4-10.4); Monocytes # (auto) 1.17 K/uL (0.11-0.59); Monocytes % (auto) 6.5 %; Neutrophils # (auto) 14.57 K/uL (1.4-6.5); Neutrophils % (auto) 81.2 %; Platelet Count 268 K/uL (130-400); RDW Coefficient of Variation 13.8 % (11.5-14.5); RDW Standard Deviation 45.8 fL (36.4-46.3); Red Blood Count 4.41 M/uL (4.2-5.4); White Blood Count 17.92 K/uL (4.8-10.8)
[2020-05-16 06:35] LABS: Albumin Level 2.8 gm/dl (3.4-5.0); BUN Creatinine Ratio 11.3 (10-20); Calcium 9.3 mg/dl (8.5-10.1); Creatinine Clr Calc Pharmacy 167.1 ml/min; Est GFR (African American) 120.8; Est GFR (Non-African American) 104.2; Potassium 4.4 mmol/L (3.5-5.1)
[2020-05-16 06:38] LABS: Albumin Globulin Ratio 0.7 (0.9-2); Bilirubin,Total 0.4 mg/dl (0.2-1); Globulin 4.2 gm/dl (2.5-4.0)
[2020-05-16] MEDS: GABAPENTIN 400 MG CAP PO SCH (08:27)
[2020-05-16] MEDS: NICOTINE 21 MG/24 HR TDSY TD SCH (08:27)
[2020-05-16] MEDS: FLUTICASONE/VILANTEROL 100/25MCG 14 PUFFS/INHALER INH SCH (08:27)
--- NOTE | 2020-05-16 08:44 | Hospitalist Progress Note ---
Date of Service May 16, 2020 Assessment & Plan (1) Left cervical radiculopathy: Admitted with plan for urgent recurrent anterior cervical discectomy and fusion for intractable pain and weakness in the left upper extremity from cervical radiculopathy * Pain control with IV Dilaudid as needed, oxycodone as needed, tramadol as needed * Continue home gabapentin Preoperative testing to include ECG with normal sinus rhythm no ischemic changes on 05/07 was reviewed. She has no chronic kidney disease. She does have some chronic dyspnea on exertion secondary to morbid obesity and asthma but only uses her albuterol inhaler once a month. She can go up and down a flight of stairs without any angina or chest pain. She has never had any cardiac issues. She can achieve at least 4 METS. As for her leukocytosis, this is most likely secondary to demargination from high-dose prednisone over the last week that she was given to try to help the severe radiculopathy pain she was having. She had a flow cytometry test which was negative for any hematologic abnormality. Repeat WBC count here elevated at 15k on admission, however all her other cell lines on the CBC are normal. She is not having any evidence of infection, fever of any sort. POD#1 s/p #1 removal of anterior cervical plate and screws C4-C6. #2 exploration of fusion C4-5 C5-6. #3 anterior cervical discectomy with bilateral foraminotomies C6-C7. #4 anterior cervical arthrodesis C6-C7. #5 placement of 9 mm Spira cage filled with DBM at C6-C7. #6 application of doyle plate and screws across C6-C7. EBL 25cc * Pre-op h/h 13.0/42.1 -- had been on LR @75cc/hr so expected some dilution as well as acute blood loss from surgery on AM labs --> h/h 12.8/40.2 , expected and stable * WBC trended down but did increase as patient received steroids in operative/yandel-operative period -- previous elevations likely secondary to prednisone use * No s/sx infection * Ancef for proph Patient for discharge later this afternoon with oxycodone/tramadol and follow up with Dr. Jimenez scheduled after removal of RAHEL drain. (2) Leukocytosis: * As noted above, remains elevated and is likely secondary to demargination from prednisone as well as some stress response from dealing with stress of severe pain in the neck and left upper extremity. * No evidence of infection * UA showed lactobacillus species 80,000 colony-forming units which is also from a urinalysis that shows excessive contamination of epithelial cells from the vagina-this does not need to be treated. * Flow cytometry negative as above * See above (3) Asthma: * Minimal tightness reported this morning --> asked nursing to send up albuterol HFA. Patient denied SOB and has been 96% on RA * Previous recommendations for 2 puffs albuterol prior to surgery for prevention of bronchospasm but did not receive * Continued counseling on smoking cessation as she quit 4 days prior to admission * Continue home ICS/LABA 2 puffs twice daily (4) Factor 5 Leiden mutation, heterozygous: * Tested for this due to an uncle having a blood clot and factor V Leiden mutation * She has never had a VTE or miscarriage * SCDs after surgery --> avoid heparin containing products due to cervical spine surgery (5) Gout: * No acute flareups in a long time * No maintenance medications for this (6) Allergic rhinitis: * Currently not flaring up * No medication needed (7) Anxiety and depression: * Stable * Continue home escitalopram 20 mg at bedtime (8) TEODORA (obstructive sleep apnea): * Is not on CPAP --> she states diagnosis 6 years ago but unable to tolerate mask due to claustrophobia. * Of note, patient states she is not mouth breather and may benefit from follow up with PCP/possibility of utilizing nasal pillows for TEODORA * No nocturnal hypoxia noted (9) Morbid obesity: * BMI is 52.3 * Weight loss counseling (10) Current smoker: * Quit 4 days prior to admission and I congratulated her for that. * Nicotine patch-usually smokes 1 pack/day-we will start with nicotine patch 21 mg TD once daily and taper down * Held for surgery (11) DVT prophylaxis: * SCDs, RUY hose, ambulation Discharge home this afternoon planned per primary service. Medically stable for discharge. Will sign off at this time. Please call with any questions/concerns. Admission and Anticipated Discharge Date Admission Date: May 14, 2020 Subjective Patient evaluated this morning. Feeling well. Some minor discomfort at anterior incision site and posterior neck but improved from admission. Significant improvement of her pain in LUE. Still has some numbness/tingling to her 4th/5th digits but states improved sensation to middle finger and significant improvement in thumb and index finger. Patient states she is aware after conversation with Dr. Jimenez that she may not ever regain complete sensation, but that she should regain most. Eating/drinking without difficulty. States she got additional steroids last evening for inflammation and is feeling better. Has been walking the halls without difficulty. Successful BM. States she plans on discharge later this afternoon around 2pm after they remove her RAHEL drain and change dressings. Denies fever, chills, chest pain, shortness of breath, abdominal pain, nausea vomiting or dysuria. She does note she has some tightness and states this is the first time she did not require any nebulizers in the post-operative period. Discussed given faint wheezing to R posterior lung coburn that we will have pharmacy send up albuterol inhaler now. Review of Systems Review of Systems: All systems reviewed & are unremarkable except as noted in HPI & below Physical Exam Constitutional: WD/WN, vitals as above + morbidly obese and healthy appearing; no acute distress Eyes: + anicteric sclerae and EOM intact bilaterally ENMT: external ear and nose normal, oropharynx normal Mallampati Class: III Neck: trachea midline dressing to anterior neck c/d/i with RAHEL with scant bloody drainage dressing to posterior neck c/d/i without stridor on auscultation Respiratory: normal respiratory effort and able to speak in complete sentences; no respiratory distress and no labored breathing Auscultation: + wheezes (faint end inspiratory/expiratory wheezing right posterior lung field); no crackles and no rales Cardiovascular: RRR, no murmur, no edema Chest (Breasts): Chest: normal inspection of chest Gastrointestinal (Abdomen): normal bowel sounds, soft, nontender, no hepatosplenomegaly Musculoskeletal: Extremities: extremities normal to inspection; no cyanosis and no clubbing improved strength to LUE improved sensation to light touch thumb, index, 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, 5/5 RUE still with pain with L shoulder abduction and elbow flexion above the head Skin: warm, dry Neurologic: moves all extremities and awake Psychiatric: A+Ox3, euthymic affect Lymphatic: no lymphedema Results & Data Results & Data ([facility]) Vital Signs (Past 12 Hours) Vital Signs Temp Pulse Pulse Pulse Resp BP Pulse Ox 05/16/20 08:30 36.4 C L 82 16 129/85 95 05/16/20 07:33 73 16 96 05/16/20 06:30 36.4 C L 79 18 143/86 H 94 05/16/20 04:40 36.4 C L 74 18 133/85 97 05/16/20 03:09 78 18 95 05/16/20 02:40 36.6 C 74 18 124/81 96 05/16/20 00:40 36.7 C 82 16 135/76 96 05/15/20 23:01 90 16 94 05/15/20 22:41 36.5 C 88 15 128/75 93 Laboratory Results 05/16/20 05/16/20 Range/Units 05:51 05:51 WBC 17.92 H (4.8-10.8) K/uL RBC 4.41 (4.2-5.4) M/uL Hgb 12.8 (12.0-16.0) g/dL Hct 40.2 (37-47) % MCV 91.2 (80-100) fL MCH 29.0 (25-34) pg MCHC 31.8 L (32-36) g/dL RDW Std Deviation 45.8 (36.4-46.3) fL RDW Coeff of Lucia 13.8 (11.5-14.5) % Plt Count 268 (130-400) K/uL MPV 11.2 H (7.4-10.4) fL Immature Gran % (Auto) 0.4 % Neut % (Auto) 81.2 % Lymph % (Auto) 11.7 % Cowley % (Auto) 6.5 % Eos % (Auto) 0.1 % Baso % (Auto) 0.1 % Neut # (Auto) 14.57 H (1.4-6.5) K/uL Lymph # (Auto) 2.09 (1.2-3.4) K/uL Cowley # (Auto) 1.17 H (0.11-0.59) K/uL Eos # (Auto) 0.01 (0-0.5) K/uL Baso # (Auto) 0.01 (0-0.2) K/uL Immature Gran # (Auto) 0.07 H (0.00-0.02) K/uL Sodium 137 (136-145) mmol/L Potassium 4.4 (3.5-5.1) mmol/L Chloride 102 (98-107) mmol/L Carbon Dioxide 28 (21-32) mmol/L Anion Gap 7.0 (3-11) BUN 8 (7-18) mg/dl Creatinine 0.74 (0.6-1.2) mg/dl Est Cr Clr Drug Dosing 167.1 ml/min Est GFR ( Amer) 120.8 Est GFR (Non-Af Amer) 104.2 BUN/Creatinine Ratio 11.3 (10-20) Glucose 178 H (70-99) mg/dl Calcium 9.3 (8.5-10.1) mg/dl Total Bilirubin 0.4 (0.2-1) mg/dl AST 37 (15-37) U/L ALT 48 (12-78) U/L Alkaline Phosphatase 92 (45-117) U/L Total Protein 7.0 (6.4-8.2) gm/dl Albumin 2.8 L (3.4-5.0) gm/dl Globulin 4.2 H (2.5-4.0) gm/dl Albumin/Globulin Ratio 0.7 L (0.9-2) PG Care Time/CCT Total # of Minutes Spent Total Time Spent with Patient: Total time spent is greater than 50% in coordination of care (as documented) at patient's floor/unit and/or counseling patient: Coding Level of Care Code 91700 Subseq Hosp Care Lvl 2 Diagnoses Left cervical radiculopathy M54.12 Leukocytosis D72.829 Asthma J45.909 Factor 5 Leiden mutation, heterozygous D68.51 Gout M10.9 Allergic rhinitis J30.9 Anxiety and depression F41.9; F32.9 TEODORA (obstructive sleep apnea) G47.33 Morbid obesity E66.01 Current smoker F17.200 DVT prophylaxis Z29.9
[2020-05-16] MEDS ORDERED: DEXAMETHASONE SOD PHOSPHATE 8 MG in SYRINGE 0 ML IV ONE (10:15)
--- NOTE | 2020-05-16 11:43 | Discharge Summary ---
Date of Service May 16, 2020 Admission HPI Per Admitting Provider This is a 34-year-old female well-known to me that has a known cervical disc condition C6-C7. She is noting a significant decline in status over the past several days now with worsening weakness affecting the left hand and tricep. She notes loss of sensation affecting the small and ring finger on the left. The right upper extremity asymptomatic. Oral pain medication is no longer effective. Principal Diagnosis Cervical radiculopathy with neuro deficit Discharge Data Allergies Allergy/AdvReac Type Severity Reaction Status Date / Time codeine Allergy Severe SHORTNESS Verified 05/12/20 08:31 OF BREATH FIBERGLASS Allergy Unknown AIRWAY Uncoded 05/12/20 08:31 SWELLING FROM FIBERGLASS DUST WHEN CAST CAME OFF Consultations 05/14/20 13:09 Consult Anesthesiology Routine Consult Internal Medicine Routine Procedures Performed Operation Date: 05/15/20 13:05 Actual Procedures p C6-C7 Anterior Cervical Discectomy and Fusion, Spinal Cord Monitoring - Darron Jimenez DO s C4-C6 Hardware Removal - Darron Jimenez DO Hospital Course (1) Left cervical radiculopathy: Patient was admitted to hospital with marked decline in status with worsening left arm pain weakness and numbness. She underwent surgery the following day. She tolerates well was taken to orthopedic floor postoperative. Postop day #1 she was swallowing well no hoarseness arm symptoms improved strength improving numbness improving. Subsequently discharged home. Discharge orders instructions from the chart for further review. Total Time Total Time Spent Total Time Spent (In Minutes): 20 minutes Discharge Plan Discharge Items Patient Disposition: Home - Self-Care Reason For Visit: INCREASED CERVICAL PAIN, R HAND NUMBNESS Discharge Diagnosis: Radiographs pulposis with radiculopathy Activity: As commented below Non-emergency contact: Primary Care Provider Call non-emergency contact if: you have any medication questions Follow-up/Referrals: Alysha Pickard MD [Primary Care Provider] - Diet: Regular Addtl Attending Provider Instructions: ACTIVITY RECOMMENDATIONS: SELF CARE INSTRUCTIONS AFTER CERVICAL FUSIONS 1. No smoking. Smoking drastically decreases the chance of a solid fusion. 2. No bending, lifting more than 5 pounds, or twisting (roll like a log when turning in bed). 3. You may shower 3 days after surgery. Thoroughly dry wound. Do not soak in the tub. 4. Cervical collar: Must be worn at all times including sleeping. You may remove the brace only to bath, eat and if you are sitting in a recliner. 5. Please walk as much as you can for exercise. Gradually increase the distance that you walk as your endurance increases. SPECIAL CARE INSTRUCTIONS: VERY IMPORTANT TO READ AND REVIEW A. Do not take any anti-inflammatory medications (i.e. Indocin, Advil, Aspirin, Naprosyn, Aleve, Motrin, etc.) as these may inhibit the chance of a solid fusion. Tylenol is okay to take. B. Your surgical incision has been closed with a cosmetic suture under the skin that will dissolve in about 6 weeks. In 14 days, you can use a pair of clean scissors and cut the suture that is left outside of the skin at the ends of your incision. C. Complications are uncommon, but please contact us if you have any signs or symptoms of: 1. wound infection (fever higher than 102.5 degrees F, redness, separation of wound, drainage, or increasing pain from the incision) 2. blood clots in legs (pain, swelling, redness and warmth in legs) 3. urinary tract infection (fever higher than 102.5 degrees, burning upon urination or increased frequency of urination) 4. nerve problems (inability to walk on your toes or heels, numbness, loss of bowel or bladder control) 5. any other symptoms that concern you. D. Please call the office at if you have any concerns or questions about your operation or recovery. MANAGING PAIN AFTER SPINAL SURGERY 1. Narcotic medication is intended for short-term use and will be provided for surgical pain. Surgical pain usually lasts for a period of 4-6 weeks. Narcotic medication includes Percocet, Vicodin, Darvocet, Tylenol #3 or Lortab. 2. Longer-term pain is more appropriately treated with non-narcotic medication such as Tylenol ES. 3. Muscle spasm is not appropriately treated with narcotics. Muscle relaxers such as Soma, Flexeril or Skelaxin can be used along with Tylenol ES. 4. Remember that we all live with some "aches and pains". This is not unusual or uncommon after an injury or as we get older. 5. We will provide appropriate medication within the normal guidelines of their prescribed use. We will also be very cautious and aware of potential abuse and extended duration of patients' medication needs. 6. Please allow 2-3 days to process refills. Prescriptions will not be mailed but must be picked up at the office. FOLLOW UP VISIT: Keep your scheduled follow-up appointment. Any questions, please call the office at . Pending Studies at Discharge: No Stand-Alone Forms: [facility], Smoking Cessation Medications and DC Order Prescriptions: New tramadol 50 mg tablet 50 mg PO Q6H PRN (Reason: pain, moderate) Qty: 20 RF: 0 oxycodone 5 mg tablet 5 mg PO Q6H PRN (Reason: pain, severe) Qty: 20 RF: 0 Continued gabapentin 400 mg capsule 400 mg PO .COMPLEX Qty: 150 RF: 5 Symbicort 80-4.5 mcg/actuation HFA aerosol inhaler 2 puff INHALATION BID Qty: 10.2 RF: 3 cyclobenzaprine 10 mg tablet 10 mg PO TID PRN (Reason: muscle spasm) Qty: 90 RF: 0 albuterol sulfate 90 mcg/actuation HFA aerosol inhaler 2 puff INHALATION QID PRN (Reason: Wheezing) Qty: 18 RF: 3 oxycodone-acetaminophen [Percocet] 5-325 mg Tablet 1 tab PO Q6H PRN (Reason: Pain) RF: 0 escitalopram oxalate 20 mg tablet 20 mg PO QPM RF: 0 Discontinued ibuprofen 600 mg tablet 600 mg PO TID MDD pain RF: 0 Hold Instructions: patient holding before surgery Discharge Orders: Discharge Order (Routine); Ordered 05/16/20 Ordered By: Darron Jimenez Admission Data Admit Date/Time: 05/14/20 13:04 Attending Provider: Darron Jimenez Admit Provider: Darron Jimenez Primary Care Provider: Alysha Pickard Other Providers: Attila Costa ; Max Dangelo
[2020-05-17] MEDS ORDERED: bisacodyL 10 MG SUPP PR PRN (13:35)
== END 2020-05-16 14:17 | disposition home or self-care (01) | DRG 472 ==
LOC: 3W 13:04 → 3E 05-15 15:38

== ENCOUNTER 2022-09-09 16:42 | Inpatient (IN) ==
[2022-09-09] MEDS ORDERED: cefTRIAXone SODIUM 2,000 MG/70 ML BAG IV STA (17:40)
--- NOTE | 2022-09-09 17:40 | Emergency Department Note ---
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 Patient has had a recurrent area of pain and tenderness in the right breast for some time. It has been evaluated by ultrasound and mammography. Last imaging in April 2022 was concerning for abscess. She was treated with antibiotics and her symptoms resolved, she never had any follow-up imaging. Patient states that in the last 24 hours, the right breast has become more red, swollen and painful. She was actually seen by Dr. Taylor yesterday and started on Bactrim, she has had 3 doses of the Bactrim, but her symptoms are worsening. She is noting seeing increasing pain and spreading redness. No drainage or discharge from the breast. No fever, chills, nausea, vomiting or malaise. She does have a history of hidradenitis, generally this affects her inguinal area, she is on oral and topical clindamycin suppressive treatment. REVIEW OF SYSTEMS: Review of systems as per HPI. All other systems reviewed were negative. 10 systems reviewed. PMH: External medical records are reviewed and summarized as above/below. See Problem List. SOCIAL HISTORY: Patient lives at home. Employed. PHYSICAL EXAM: Vital Signs: Reviewed Nurse's notes. CONSTITUTIONAL: Patient is an obese 37-year-old female who is awake and alert and sitting semiupright on the gurney. INTEGUMENTARY: Examination of the right breast note a small pustule medial to the nipple. There is tenderness, warmth and induration just off of th e edge of the areola starting at 6:00, and running to about 10:00. No obvious fluctuance. There is some surrounding erythema, extending into the upper and lower lateral quadrants of the right breast. No nipple discharge. No lymphangitic streaking to the axilla. HEART: Regular rate and rhythm. LUNGS: Clear to auscultation. EMERGENCY DEPARTMENT COURSE: The patient was seen and assessed as above. External medical records were reviewed, including her gynecology visit from yesterday and her prior breast imaging. IV lock was initiated. CBC and BMP were drawn. She was treated with morphine and Zofran for pain. She was given ceftriaxone 2 g IV. Laboratory studies note a minimally elevated white count at 11,900 with left shift. Electrolytes are within normal limits. Glucose was elevated at 363. A right breast ultrasound was performed to evaluate abscess. Ultrasound of the breast notes a 3 x 1 x 4 cm fluid collection concerning for abscess. This has enlarged from prior imaging. Given the location on the breast and size, I did consult general surgery to evaluate for I&D. Patient was seen by the LUIS with the general surgery service, and a will admit her for IV antibiotics and surgical intervention tomorrow. Admission COVID test was obtained and was negative. Please refer to surgical H&P for further information. Differential diagnoses entertained included mastitis, abscess, malignancy, sebaceous cyst, hidradenitis, there is. Past Med/Surg History Medical History Allergic rhinitis Anxiety and depression Asthma Chronic low back pain Current smoker Depression Diverticulitis h/o DM2 (diabetes mellitus, type 2) Factor 5 Leiden mutation, heterozygous Gestational hypertension Gout Hyperlipidemia Left cervical radiculopathy Leukocytosis Lumbar stenosis with neurogenic claudication Morbid obesity Oligomenorrhea TEODORA (obstructive sleep apnea) Skin lesion of face Vitamin D deficiency Surgical History H/O colonoscopy H/O LEEP 2012, olivia 1-2 on biopsy, olivia 1 with neg margins on leep H/O neck surgery ACDF 09/2018 History of back surgery x2; L3-L5 lumbar laminectomy, decompression, PSF, pedicle screw fixation, iliac bolt fixation= 11/29/16 Hx of appendectomy Hx of cholecystectomy Hx of foot surgery LEFT S/P lumbar microdiscectomy "L4-5" Family History Father Diabetes Stroke Hypertension Mother PONV (postoperative nausea and vomiting) Slow to wake up after anesthesia Grandmother (Maternal) PONV (postoperative nausea and vomiting) Slow to wake up after anesthesia Breast cancer Denies family history of Ovarian cancer Colorectal cancer Social History Smoking Status: Current every day smoker Tobacco Type: Cigarettes Cigarettes Per Day: pack per day; Second Hand Exposure: No; Hx Alcohol Use: No Hx Substance Use: No Preferred Language: Cambodian Communication Ability: Effective 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 Beliefs That Will Affect Care: None Current Living Situation: Family Current Living Situation Comment: 15 year old son Feels Safe at Home: Yes Assistive Devices: None Allergies Allergies Allergy/AdvReac Type Severity Reaction Status Date / Time codeine Allergy Severe SHORTNESS Verified 09/08/22 15:34 OF BREATH FIBERGLASS Allergy Unknown AIRWAY Uncoded 09/08/22 15:34 SWELLING FROM FIBERGLASS DUST WHEN CAST CAME OFF Home Meds Home Medications Medication Instructions Recorded Confirmed levonorgestrel 20 mcg/24 hours (8 intrauterine 09/08/22 09/08/22 yrs) 52 mg intrauterine device (Mirena) Previous Rx's Medication Instructions Recorded clindamycin phosphate 1 % topical 1 applic topical DAILY #30 grams 12/10/20 gel budesonide-formoterol HFA 80 2 puff inhalation BID #10.2 grams 03/09/21 mcg-4.5 mcg/actuation aerosol inhaler (Symbicort) cholecalciferol (vitamin D3) 1,250 50,000 unit PO .weekly #12 caps 08/28/21 mcg (50,000 unit) capsule rosuvastatin 10 mg tablet 10 mg PO DAILY #30 tabs 08/28/21 albuterol sulfate 90 mcg/actuation 2 puff inhalation QID PRN Wheezing 09/15/21 aerosol inhaler #18 grams blood sugar diagnostic (Blood #100 ea 12/15/21 Glucose Test strips) blood-glucose meter #1 ea 12/15/21 cetirizine 10 mg tablet (Zyrtec) 10 mg PO DAILY #30 tabs 12/15/21 lancets (Lancets,Thin) #100 ea 12/15/21 triamcinolone acetonide 0.1 % 1 applic topical BID #60 mL 12/15/21 lotion cyclosporine 0.05 % eye drops 1 drp ophthalmic (eye) Q12H #1.5 mL 12/24/21 (Restasis MultiDose) metformin 500 mg tablet,extended 1,000 mg PO BID #120 tabs 12/24/21 release 24hr gabapentin 400 mg capsule 400 mg PO .COMPLEX #150 caps 03/16/22 clindamycin HCl 300 mg capsule 300 mg PO BID #60 caps 04/05/22 cyclobenzaprine 10 mg tablet 10 mg PO TID PRN muscle spasm #20 06/10/22 tabs escitalopram oxalate 20 mg tablet 20 mg PO QPM #30 tabs 06/13/22 triamcinolone acetonide 0.1 % 1 applic topical BID #80 grams 07/09/22 topical cream lisinopril 5 mg tablet 5 mg PO DAILY #90 tabs 08/02/22 meclizine 12.5 mg tablet 12.5 mg PO TID PRN dizziness #30 08/02/22 tabs hydrocodone 5 mg-acetaminophen 325 See Rx Instructions PO BID PRN 08/12/22 mg tablet pain #60 tabs nystatin 100,000 unit/gram topical 1 applic topical BID 2 weeks #30 09/01/22 ointment grams triamcinolone acetonide 0.1 % 1 applic topical BID 2 weeks #30 09/01/22 topical ointment grams metronidazole 0.75 % (37.5 mg/5 1 appful vaginal DAILY 5 days #70 09/04/22 gram) vaginal gel grams sulfamethoxazole 800 1 tab PO BID #20 tabs 09/08/22 mg-trimethoprim 160 mg tablet (Bactrim DS) Results & Data (ED) Vital Signs Vital Signs - 24 hr 09/09/22 17:05 09/09/22 18:00 Temperature 36.2 C L Temperature Source Temporal Artery Scan Pulse Rate 90 Pulse Rate [Apical] 79 Respiratory Rate 18 16 Respiratory Effort / Characteristics Non-Labored Spontaneous Non-Labored Respiratory Depth Normal Normal Respiratory Pattern Regular Regular Blood Pressure 156/101 H Blood Pressure [Left Arm] 165/95 H Blood Pressure Mean 119 Blood Pressure Mean [Left Arm] 118 Blood Pressure Position Sitting Blood Pressure Position [Left Arm] Lying Pulse Oximetry 97 96 Oxygen Delivery Method Room Air Room Air Sepsis Recent Fever Within 48 Hours No Sepsis New/Unexplained Change in Mental Status No Sepsis Action Taken by Nursing No Action Required Home Medications Current Medication List: was personally reviewed by me Laboratory Data Attestation: I reviewed the patient's lab results. 09/09/22 18:45 09/09/22 18:45 Lab Results 09/09/22 09/09/22 Range/Units 18:45 18:45 WBC 11.99 H (4.8-10.8) K/ul RBC 5.12 (3.93-5.22) M/uL Hgb 14.9 (12.0-16.0) g/dl Hct 44.6 (34.1-44.9) % MCV 87.1 (80.0-100.0) fL MCH 29.1 (25.0-34.0) pg MCHC 33.4 (32.0-36.0) g/dL RDW Std Deviation 41.8 (36.4-46.3) fL RDW Coeff of Lucia 13.1 (11.5-14.5) % Plt Count 229 (130-400) K/uL MPV 13.1 H (9.4-12.3) fL Immature Gran % (Auto) 0.4 % Neut % (Auto) 60.4 % Lymph % (Auto) 28.5 % [place] % (Auto) 6.8 % Eos % (Auto) 3.3 % Baso % (Auto) 0.6 % Neut # (Auto) 7.23 H (1.4-6.5) K/uL Lymph # (Auto) 3.42 H (1.2-3.4) K/uL [place] # (Auto) 0.82 (0.24-0.82) K/uL Eos # (Auto) 0.40 (0-0.50) K/uL Baso # (Auto) 0.07 (0-0.2) K/uL Immature Gran # (Auto) 0.05 H (0.00-0.02) K/uL Sodium 134 L (136-145) mmol/L Potassium 4.0 (3.5-5.1) mmol/L Chloride 97 L (98-107) mmol/L Carbon Dioxide 29 (21-32) mmol/L Anion Gap 8 (3-11) BUN 7 (6-23) mg/dl Creatinine 0.63 (0.6-1.2) mg/dl Est Cr Clr Drug Dosing 187.9 ml/min Est GFR ( Amer) 131.0 ml/min Est GFR (Non-Af Amer) 113.0 ml/min BUN/Creatinine Ratio 11.1 (10-20) Glucose 363 H* (70-99(Fasting)) mg/dl Calcium 9.2 (8.5-10.1) mg/dl Administered Medications Escitalopram Oxalate (Escitalopram Oxalate 20 Mg Tab) 20 mg PO QPM PATRICIA Stop: 10/09/22 22:18 Last Admin: 09/09/22 23:24 Dose: 20 mg Documented By: CRISTOPHER Gabapentin (Gabapentin 400 Mg Cap) 1,200 mg PO HS PATRICIA Stop: 10/09/22 22:18 Last Admin: 09/09/22 23:24 Dose: 1,200 mg Documented By: CRISTOPHER Acetaminophen (Ofirmev) 1,000 mg in 100 mls @ 400 mls/hr IV Q8H PRN PRN Reason: pain Stop: 09/12/22 19:51 Last Infusion: 09/09/22 23:17 Dose: 0 mls/hr Documented By: Admin: 09/09/22 22:54 Dose: 400 mls/hr Documented By: CRISTOPHER Lactated Ringer's (Lr) 1,000 mls @ 75 mls/hr IV .[id number] PATRICIA Stop: 10/09/22 19:59 Last Infusion: 09/09/22 23:17 Dose: 75 mls/hr Documented By: Infusion: 09/09/22 22:54 Dose: 0 mls/hr Documented By: Admin: 09/09/22 21:00 Dose: 75 mls/hr Documented By: DYLON Piperacillin Sod/Tazobactam (Sod 4.5 gm/ Dextrose) 120 mls @ 30 mls/hr IV Q8H PATRICIA; Protocol Stop: 09/17/22 00:00 Last Admin: 09/09/22 23:54 Dose: 30 mls/hr Documented By: CRISTOPHER Insulin Aspart (Insulin Aspart Per Unit) 0 units SC Q4 PATRICIA Stop: 10/10/22 00:00 Last Admin: 09/09/22 23:53 Dose: 8 units Documented By: CRISTOPHER Co-signed By: JOHN Nicotine (Nicotine 21 Mg/24 Hr Tdsy) 21 mg TD QAM PATRICIA Stop: 10/10/22 08:59 Last Admin: 09/09/22 23:54 Dose: 21 mg Documented By: CRISTOPHER Discontinued Medications Ceftriaxone Sodium (Rocephin) 2,000 mg in 70 mls @ 140 mls/hr IV NOW STA Stop: 09/09/22 18:09 Last Infusion: 09/09/22 19:40 Dose: 0 mls/hr Documented By: Admin: 09/09/22 18:50 Dose: 140 mls/hr Documented By: Piperacillin Sod/Tazobactam (Sod 3.375 gm/ Dextrose) 100 ml in 115 mls @ 230 mls/hr IV NOW STA Stop: 09/09/22 20:26 Last Infusion: 09/09/22 20:51 Dose: 0 mls/hr Documented By: Admin: 09/09/22 20:14 Dose: 230 mls/hr Documented By: RIO Insulin Aspart (Insulin Aspart Per Unit) 10 units SC NOW STA Stop: 09/09/22 20:42 Last Admin: 09/09/22 21:27 Dose: 10 units Documented By: DYLON Co-signed By: RIO Morphine Sulfate (Morphine Sulfate 4 Mg/Ml 1 Ml Carp\\Vial) 4 mg IV NOW STA Stop: 09/09/22 18:21 Last Admin: 09/09/22 18:50 Dose: 4 mg Documented By: Ondansetron HCl (Ondansetron Inj 2 Mg/Ml 2 Ml Vial) 4 mg IV NOW STA Stop: 09/09/22 18:21 Last Admin: 09/09/22 18:50 Dose: 4 mg Documented By: Imaging Data Attestation: I personally reviewed and interpreted this imaging study as follows: Radiologist's Impression: Breast Ultrasound 09/09/22 17:15 US breast RT limited CLINICAL HISTORY: EVAL ABSCESS TECHNIQUE: Real-time grayscale sonographic images of the right breast 9:00 were obtained. Comparison: Comparison is made to breast ultrasound 04/22/2022 FINDINGS/IMPRESSION: Anechoic/hypoechoic fluid collection measuring 2.9 x 1.0 x 4.0 compatible with abscess which has enlarged from prior exam. ACT 112: Negative or not required by law. Electronically signed by: Pete Medina M.D. 09/09/2022 6:01 PM Discharge Plan Visit Data Chief Complaint: Breast Pain/Problems Stated Complaint: REF BY DOC,R BREAST PAIN,RED,SWOLLEN ED Provider: Ángel Turner ED Midlevel Provider: Carson Ryan Discharge Problem: Abscess of right breast Patient Disposition: Admitted As Inpatient Discharge Instructions Interventions: ED Discharge Assessment Last Done: 09/09/22 21:55
--- NOTE | 2022-09-09 18:02 | Ultrasound Report ---
US breast RT limited CLINICAL HISTORY: EVAL ABSCESS TECHNIQUE: Real-time grayscale sonographic images of the right breast 9:00 were obtained. Comparison: Comparison is made to breast ultrasound 04/22/2022 FINDINGS/IMPRESSION: Anechoic/hypoechoic fluid collection measuring 2.9 x 1.0 x 4.0 compatible with a bscess which has enlarged from prior exam. ACT 112: Negative or not required by law. Electronically signed by: Pete Medina M.D. 09/09/2022 6:01 PM
[2022-09-09] MEDS ORDERED: MoRPHine SULFATE 4 MG/ML 1 ML CARP\\VIAL IV STA (18:20)
[2022-09-09] MEDS ORDERED: ONDANSETRON INJ 2 MG/ML 2 ML VIAL IV STA (18:20)
--- NOTE | 2022-09-09 19:51 | History & Physical Report ---
Date of Service September 09, 2022 Assessment & Plan (1) Breast abscess: Plan: Due to the patient's clinical presentation, findings on imaging, and the fact that she is diabetic I feel the patient requires admission to the hospital. We will proceed as follows: We will check baseline laboratories including a CBC and a PRP Analgesia be provided Antiemetics be provided We will provide gentle hydration with IV fluids We will continue antibiotics. I will change her antibiotics to Zosyn however. The patient will be allowed a diet tonight but will make her n.p.o. after midnight as she is tentatively planned for incision and drainage of right breast abscess by Dr. Tadeo on 09/10/2022 Concerning the patient's diabetes I will place her on sliding scale insulin is that she takes metformin which I like to hold for the present time. We will consult pharmacy for glycemic management. Additional recommendations be forthcoming based on her clinical course as it unfolds as well as results of her incision and drainage We will use SCDs for DVT prevention no chemical means due to planned surgery She will be a level 1 full code History of Present Illness Chief Complaint: Right breast abscess Primary Care Provider: Alysha Pickard MD This is a 37-year-old female who presented to the emergency department secondary to right breast pain. The patient relates that back in April 2022 she noticed a lump on her breast. At that time she had an ultrasound that showed a 1.7 x 0.5 x 1.9 cm structure concerning for an abscess. The patient said she was given 10 days of antibiotics but she is unsure of the antibiotic she received. She notes that this area improved and she never sought follow-up. At that time the patient said that she did not have any tenderness or drainage from the affected area and she was not having any fevers. The patient notes that at 3:00 AM on 09/08/2022 she noticed a lump on her right breast with some erythema and warmth. She does not have any fevers, shakes, or chills. She is not having any nausea or vomiting. The patient says that the area was tender to palpation. Because of this she did seek medical attention with her EDUCATION REPORTER service who placed her on Bactrim. She notes that since she has been on Bactrim she has not noted any significant improvement so she presented to the emergency department. It is nowhere the mention that the patient reports that she never had to have any incision and drainage of breast abscesses before. She also reports that she is diabetic. I did question the patient on if there is any drainage from the affected area and she did note that there was a small punctate amount of pus that was drained at the time of an ultrasound that was performed in the emergency department. Today in the emergency department she did have a breast ultrasound that showed that the affected area was now 2.9 x 1.0 x 4.0 cm. This was concerning for an abscess. No laboratories were drawn. Since arrival to the emergency department the patient has received antibiotics in form of Rocephin. At the time of my interview she was resting comfortably in bed and she was in no distress. It is noteworthy to mention that since arrival to the emergency department the patient has been normotensive without tachycardia and she has been afebrile. Allergies Allergy/AdvReac Type Severity Reaction Status Date / Time codeine Allergy Severe SHORTNESS Verified 09/08/22 15:34 OF BREATH FIBERGLASS Allergy Unknown AIRWAY Uncoded 09/08/22 15:34 SWELLING FROM FIBERGLASS DUST WHEN CAST CAME OFF Home Medications Medication Instructions Recorded Confirmed Type clindamycin phosphate 1 % topical 1 applic topical DAILY #30 grams 12/10/20 09/08/22 Rx gel budesonide-formoterol HFA 80 2 puff inhalation BID #10.2 grams 03/09/21 09/08/22 Rx mcg-4.5 mcg/actuation aerosol inhaler (Symbicort) cholecalciferol (vitamin D3) 1,250 50,000 unit PO .weekly #12 caps 08/28/21 09/08/22 Rx mcg (50,000 unit) capsule rosuvastatin 10 mg tablet 10 mg PO DAILY #30 tabs 08/28/21 09/08/22 Rx albuterol sulfate 90 mcg/actuation 2 puff inhalation QID PRN Wheezing 09/15/21 09/08/22 Rx aerosol inhaler #18 grams blood sugar diagnostic (Blood #100 ea 12/15/21 09/08/22 Rx Glucose Test strips) blood-glucose meter #1 ea 12/15/21 09/08/22 Rx cetirizine 10 mg tablet (Zyrtec) 10 mg PO DAILY #30 tabs 12/15/21 09/08/22 Rx lancets (Lancets,Thin) #100 ea 12/15/21 09/08/22 Rx triamcinolone acetonide 0.1 % 1 applic topical BID #60 mL 12/15/21 09/08/22 Rx lotion cyclosporine 0.05 % eye drops 1 drp ophthalmic (eye) Q12H #1.5 mL 12/24/21 09/08/22 Rx (Restasis MultiDose) metformin 500 mg tablet,extended 1,000 mg PO BID #120 tabs 12/24/21 09/08/22 Rx release 24hr gabapentin 400 mg capsule 400 mg PO .COMPLEX #150 caps 03/16/22 09/08/22 Rx clindamycin HCl 300 mg capsule 300 mg PO BID #60 caps 04/05/22 09/08/22 Rx cyclobenzaprine 10 mg tablet 10 mg PO TID PRN muscle spasm #20 06/10/22 09/08/22 Rx tabs escitalopram oxalate 20 mg tablet 20 mg PO QPM #30 tabs 06/13/22 09/08/22 Rx triamcinolone acetonide 0.1 % 1 applic topical BID #80 grams 07/09/22 09/08/22 Rx topical cream lisinopril 5 mg tablet 5 mg PO DAILY #90 tabs 08/02/22 09/08/22 Rx meclizine 12.5 mg tablet 12.5 mg PO TID PRN dizziness #30 08/02/22 09/08/22 Rx tabs hydrocodone 5 mg-acetaminophen 325 See Rx Instructions PO BID PRN 08/12/22 09/08/22 Rx mg tablet pain #60 tabs nystatin 100,000 unit/gram topical 1 applic topical BID 2 weeks #30 09/01/22 09/08/22 Rx ointment grams triamcinolone acetonide 0.1 % 1 applic topical BID 2 weeks #30 09/01/22 09/08/22 Rx topical ointment grams metronidazole 0.75 % (37.5 mg/5 1 appful vaginal DAILY 5 days #70 09/04/22 09/08/22 Rx gram) vaginal gel grams levonorgestrel 20 mcg/24 hours (8 intrauterine 09/08/22 09/08/22 History yrs) 52 mg intrauterine device (Mirena) sulfamethoxazole 800 1 tab PO BID #20 tabs 09/08/22 09/08/22 Rx mg-trimethoprim 160 mg tablet (Bactrim DS) Past Med/Surg History Medical History Allergic rhinitis Anxiety and depression Asthma Chronic low back pain Current smoker Depression Diverticulitis h/o DM2 (diabetes mellitus, type 2) Factor 5 Leiden mutation, heterozygous Gestational hypertension Gout Hyperlipidemia Left cervical radiculopathy Leukocytosis Lumbar stenosis with neurogenic claudication Morbid obesity Neuropathy Oligomenorrhea TEODORA (obstructive sleep apnea) Skin lesion of face Vitamin D deficiency Surgical History H/O colonoscopy H/O LEEP 2012, olivia 1-2 on biopsy, olivia 1 with neg margins on leep H/O neck surgery ACDF 09/2018 History of back surgery x2; L3-L5 lumbar laminectomy, decompression, PSF, pedicle screw fixation, iliac bolt fixation= 11/29/16 Hx of appendectomy Hx of cholecystectomy Hx of foot surgery LEFT S/P lumbar microdiscectomy "L4-5" Family History Father Diabetes Stroke Hypertension Mother PONV (postoperative nausea and vomiting) Slow to wake up after anesthesia Grandmother (Maternal) PONV (postoperative nausea and vomiting) Slow to wake up after anesthesia Breast cancer Denies family history of Ovarian cancer Colorectal cancer Social History Smoking Status: Current every day smoker Tobacco Type: Cigarettes Cigarettes Per Day: 20; Second Hand Exposure: No; Do You Dip or Chew Tobacco: No; Tobacco Cessation Education Requested by Patient: No Hx Alcohol Use: Yes Alcohol type: hard liquor Hx Substance Use: No Preferred Language: Sri Lankan Communication Ability: Effective Esthetician Spa Required: No Beliefs That Will Affect Care: None Current Living Situation: Family Current Living Situation Comment: 15 year old son Other Information That Helps Us Care for You: No Feels Safe at Home: Yes Safety Concerns: Feels Safe At This Time Assistive Devices: None Review of Systems Constitutional: no fever and no chills Eyes: no eye pain Ear, Nose, Mouth, Throat: no ear pain Respiratory: no cough and no dyspnea Cardiovascular: no chest pain Gastrointestinal: no abdominal pain, no nausea and no vomiting Genitourinary: no dysuria Musculoskeletal: no back pain Integumentary: no rash Neurologic: no localized weakness Physical Exam Constitutional: WD/WN, vitals as above Eyes: no conjunctival abnormality ENMT: Ears: no hearing impairment and no external ear abnormality Mouth: no oropharynx abnormality Neck: trachea midline Respiratory: normal respiratory effort; no respiratory distress and no labored breathing Cardiovascular: Rate/Rhythm: regular rate and regular rhythm Chest (Breasts): Additional Comments: With a female nurse elevator examiner present I examined the patient's right breast. The patient did have an area of erythema and warmth on the right breast medial and inferior to the areola. There is a small pustule medial to the nipple. There is no crepitus noted in the soft tissue. There is no drainage at the time of my exam. The area was noted to be slightly indurated but there is no fluctuance noted. Gastrointestinal (Abdomen): Abdomen is soft and rotund. It is nondistended. There is no pain with palpation Musculoskeletal: No calf tenderness Skin: normal turgor Neurologic: moves all extremities Psychiatric: A+Ox3, euthymic affect Results & Data Results & Data ([facility]) Vital Signs (Past 12 Hours) Vital Signs Temp Pulse Pulse Resp BP BP Pulse Ox 09/09/22 18:00 79 16 165/95 H 96 09/09/22 17:05 36.2 C L 90 18 156/101 H 97 O2 Del Method 09/09/22 18:00 Room Air 09/09/22 17:05 Room Air Supervising Physician Co-Signing Physician Notes I personally saw and evaluated the patient with Khanh Meng PA-C and agree with the assessment plan. 37-year-old female with a right breast abscess Ultrasound images and results personally viewed by myself She has about a 4 cm retroareolar breast abscess which will require drainage Will admit the patient to the surgical service, keep n.p.o. give IV antibiotics Pain control as needed We will plan on I&D in the operating room PG Care Time/CCT Total # of Minutes Spent Total Time Spent with Patient: Total time spent is greater than 50% in coordination of care (as documented) at patient's floor/unit and/or counseling patient: Coding Level of Care Code 26183 INT INP/OBS CARE 3/75MIN Diagnoses Breast abscess N61.1
[2022-09-09] MEDS ORDERED: ONDANSETRON INJ 2 MG/ML 2 ML VIAL IV PRN (19:52)
[2022-09-09] MEDS ORDERED: PIPERACILLIN/TAZOBACTAM 3.375 GM in DEXTROSE 5% 100 ML/100 ML BAG IV STA (19:57)
[2022-09-09 20:19] LABS: Basophils # (auto) 0.07 K/uL (0-0.2); Basophils % (auto) 0.6 %; Eosinophils % (auto) 3.3 %; Hematocrit (blood only) 44.6 % (34.1-44.9); Hemoglobin 14.9 g/dl (12.0-16.0); Immature Granulocytes # (auto) 0.05 K/uL (0.00-0.02); Immature Granulocytes % (auto) 0.4 %; Lymphocytes # (auto) 3.42 K/uL (1.2-3.4); Lymphocytes % (auto) 28.5 %; Mean Corpuscular Hemoglobin 29.1 pg (25.0-34.0); Mean Corpuscular Hgb Conc 33.4 g/dL (32.0-36.0); Mean Corpuscular Volume 87.1 fL (80.0-100.0); Mean Platelet Volume 13.1 fL (9.4-12.3); Monocytes # (auto) 0.82 K/uL (0.24-0.82); Monocytes % (auto) 6.8 %; Neutrophils # (auto) 7.23 K/uL (1.4-6.5); Neutrophils % (auto) 60.4 %; Platelet Count 229 K/uL (130-400); RDW Coefficient of Variation 13.1 % (11.5-14.5); RDW Standard Deviation 41.8 fL (36.4-46.3); Red Blood Count 5.12 M/uL (3.93-5.22); White Blood Count 11.99 K/ul (4.8-10.8)
[2022-09-09 20:32] LABS: BUN Creatinine Ratio 11.1 (10-20); Calcium 9.2 mg/dl (8.5-10.1); Creatinine Clr Calc Pharmacy 187.9 ml/min
[2022-09-09] MEDS ORDERED: INSULIN ASPART PER UNIT SC STA (20:41)
[2022-09-09] MEDS: LACTATED RINGER'S 1,000 ML IV SCH (21:00)
--- NOTE | 2022-09-09 21:51 | Hospitalist Consultation ---
Date of Consultation September 09, 2022 Assessment & Plan (1) Abscess of right breast: (2) Benign essential hypertension: (3) DM2 (diabetes mellitus, type 2): (4) Hyperlipidemia: (5) Neuropathy: (6) Anxiety and depression: Plan Diabetes mellitus- Hold metformin Placed on Accu-Cheks before meals and at bedtime/every 6 hours with NovoLog coverage per scale Give NovoLog 10 units subcu now for glucose 363 and recheck in 1 hour Asthma/tobacco use Lung exam with coarse breath sounds bilaterally Cessation counseling Albuterol HFA 2 puffs every 4 hours as needed Remainder of orders per primary team History of Present Illness Reason for Consultation: medical management Requesting Physician: Ismael Tadeo History of Present Illness The patient is a 37-year-old female with past medical history including hidradenitis, peripheral neuropathy, hyperlipidemia, LGSIL, hyperlipidemia, vitamin D deficiency, gout, factor V Leiden mutation, asthma, allergic rhinitis, anxiety and depression, TEODORA and morbid obesity. She presents to the emergency department with 2 days of worsening right breast infection, and is admitted to the general surgical service. Allergies Allergy/AdvReac Type Severity Reaction Status Date / Time codeine Allergy Severe SHORTNESS Verified 09/08/22 15:34 OF BREATH FIBERGLASS Allergy Unknown AIRWAY Uncoded 09/08/22 15:34 SWELLING FROM FIBERGLASS DUST WHEN CAST CAME OFF Home Medications Medication Instructions Recorded Confirmed Type clindamycin phosphate 1 % topical 1 applic topical DAILY #30 grams 12/10/20 09/08/22 Rx gel budesonide-formoterol HFA 80 2 puff inhalation BID #10.2 grams 03/09/21 09/08/22 Rx mcg-4.5 mcg/actuation aerosol inhaler (Symbicort) cholecalciferol (vitamin D3) 1,250 50,000 unit PO .weekly #12 caps 08/28/21 09/08/22 Rx mcg (50,000 unit) capsule rosuvastatin 10 mg tablet 10 mg PO DAILY #30 tabs 08/28/21 09/08/22 Rx albuterol sulfate 90 mcg/actuation 2 puff inhalation QID PRN Wheezing 09/15/21 09/08/22 Rx aerosol inhaler #18 grams blood sugar diagnostic (Blood #100 ea 12/15/21 09/08/22 Rx Glucose Test strips) blood-glucose meter #1 ea 12/15/21 09/08/22 Rx cetirizine 10 mg tablet (Zyrtec) 10 mg PO DAILY #30 tabs 12/15/21 09/08/22 Rx lancets (Lancets,Thin) #100 ea 12/15/21 09/08/22 Rx triamcinolone acetonide 0.1 % 1 applic topical BID #60 mL 12/15/21 09/08/22 Rx lotion cyclosporine 0.05 % eye drops 1 drp ophthalmic (eye) Q12H #1.5 mL 12/24/21 09/08/22 Rx (Restasis MultiDose) metformin 500 mg tablet,extended 1,000 mg PO BID #120 tabs 12/24/21 09/08/22 Rx release 24hr gabapentin 400 mg capsule 400 mg PO .COMPLEX #150 caps 03/16/22 09/08/22 Rx clindamycin HCl 300 mg capsule 300 mg PO BID #60 caps 04/05/22 09/08/22 Rx cyclobenzaprine 10 mg tablet 10 mg PO TID PRN muscle spasm #20 06/10/22 09/08/22 Rx tabs escitalopram oxalate 20 mg tablet 20 mg PO QPM #30 tabs 06/13/22 09/08/22 Rx triamcinolone acetonide 0.1 % 1 applic topical BID #80 grams 07/09/22 09/08/22 Rx topical cream lisinopril 5 mg tablet 5 mg PO DAILY #90 tabs 08/02/22 09/08/22 Rx meclizine 12.5 mg tablet 12.5 mg PO TID PRN dizziness #30 08/02/22 09/08/22 Rx tabs hydrocodone 5 mg-acetaminophen 325 See Rx Instructions PO BID PRN 08/12/22 09/08/22 Rx mg tablet pain #60 tabs nystatin 100,000 unit/gram topical 1 applic topical BID 2 weeks #30 09/01/22 09/08/22 Rx ointment grams triamcinolone acetonide 0.1 % 1 applic topical BID 2 weeks #30 09/01/22 09/08/22 Rx topical ointment grams metronidazole 0.75 % (37.5 mg/5 1 appful vaginal DAILY 5 days #70 09/04/22 09/08/22 Rx gram) vaginal gel grams levonorgestrel 20 mcg/24 hours (8 intrauterine 09/08/22 09/08/22 History yrs) 52 mg intrauterine device (Mirena) sulfamethoxazole 800 1 tab PO BID #20 tabs 09/08/22 09/08/22 Rx mg-trimethoprim 160 mg tablet (Bactrim DS) Patient History Medical History (Updated 09/10/22 @ 03:09 by Kane Oropeza MD) Allergic rhinitis Anxiety and depression Asthma Chronic low back pain Current smoker Depression Diverticulitis h/o DM2 (diabetes mellitus, type 2) Factor 5 Leiden mutation, heterozygous Gestational hypertension Gout Hyperlipidemia Left cervical radiculopathy Leukocytosis Lumbar stenosis with neurogenic claudication Morbid obesity Neuropathy Oligomenorrhea TEODORA (obstructive sleep apnea) Skin lesion of face Vitamin D deficiency Surgical History H/O colonoscopy H/O LEEP 2012, olivia 1-2 on biopsy, olivia 1 with neg margins on leep H/O neck surgery ACDF 09/2018 History of back surgery x2; L3-L5 lumbar laminectomy, decompression, PSF, pedicle screw fixation, iliac bolt fixation= 11/29/16 Hx of appendectomy Hx of cholecystectomy Hx of foot surgery LEFT S/P lumbar microdiscectomy "L4-5" Family History Father Diabetes Stroke Hypertension Mother PONV (postoperative nausea and vomiting) Slow to wake up after anesthesia Grandmother (Maternal) PONV (postoperative nausea and vomiting) Slow to wake up after anesthesia Breast cancer Denies family history of Ovarian cancer Colorectal cancer Social History Smoking Status: Current every day smoker Tobacco Type: Cigarettes Cigarettes Per Day: 20; Second Hand Exposure: No; Do You Dip or Chew Tobacco: No; Tobacco Cessation Education Requested by Patient: No Hx Alcohol Use: Yes Alcohol type: hard liquor Hx Substance Use: No Preferred Language: Palauan Communication Ability: Effective Scrap Charger Required: No Beliefs That Will Affect Care: None Current Living Situation: Family Current Living Situation Comment: 15 year old son Other Information That Helps Us Care for You: No Feels Safe at Home: Yes Safety Concerns: Feels Safe At This Time Assistive Devices: None Review of Systems Review of Systems: The patient denies chest pain, palpitations, shortness of breath, dyspnea on exertion, cough, lower extremity swelling, sore throat, fevers, chills, sweats, fatigue, nausea, vomiting, diarrhea , constipation, abdominal pain, pelvic pain, blood in urine or stool, dysuria, urinary frequency or urgency, lightheadedness, dizziness, headache, abnormal bruising or bleeding, imbalance, focal or generalized weakness, numbness or tingling in arms or legs, generalized arthralgias or myalgias, back or neck pain, or night sweats. The review of systems is otherwise negative other than for that already noted above, and at least 10 systems have been reviewed. Physical Exam Physical Exam: The patient is awake, alert and oriented 3, well developed and well nourished, normocephalic and atraumatic, lying in bed and in no acute distress. HEENT--PERRL, EOMI, mucous membranes and oropharynx dry. Neck--supple. No JVD. No bruits. Thyroid normal, trachea midline, no adenopathy. Heart--normal S1 and S2. No murmurs, rubs or gallops. Lungs--clear bilaterally, no respiratory distress, no accessory muscle use. Abdomen--normal bowel sounds and soft. Nontender. Nondistended, no hernias or masses, no organomegaly. Extremities--no cyanosis or clubbing. No edema. Dermatologic--as noted in ED record Neurologic--cranial nerves II through XII grossly intact. Rheumatologic--normal range of motion. Psychiatric--normal affect. Results & Data Results & Data ([facility]) Vital Signs (Past 12 Hours) Vital Signs Temp Pulse Pulse Resp BP BP Pulse Ox 09/09/22 21:45 84 20 128/85 98 09/09/22 18:00 79 16 165/95 H 96 09/09/22 17:05 36.2 C L 90 18 156/101 H 97 O2 Del Method 09/09/22 21:45 Room Air 09/09/22 18:00 Room Air 09/09/22 17:05 Room Air Laboratory Results Laboratory Results WBC 11.99 K/ul (4.8-10.8) H 09/09/22 18:45 RBC 5.12 M/uL (3.93-5.22) 09/09/22 18:45 Hgb 14.9 g/dl (12.0-16.0) 09/09/22 18:45 Hct 44.6 % (34.1-44.9) 09/09/22 18:45 MCV 87.1 fL (80.0-100.0) 09/09/22 18:45 MCH 29.1 pg (25.0-34.0) 09/09/22 18:45 MCHC 33.4 g/dL (32.0-36.0) 09/09/22 18:45 RDW Std Deviation 41.8 fL (36.4-46.3) 09/09/22 18:45 RDW Coeff of Lucia 13.1 % (11.5-14.5) 09/09/22 18:45 Plt Count 229 K/uL (130-400) 09/09/22 18:45 MPV 13.1 fL (9.4-12.3) H 09/09/22 18:45 Immature Gran % (Auto) 0.4 % 09/09/22 18:45 Neut % (Auto) 60.4 % 09/09/22 18:45 Lymph % (Auto) 28.5 % 09/09/22 18:45 [place] % (Auto) 6.8 % 09/09/22 18:45 Eos % (Auto) 3.3 % 09/09/22 18:45 Baso % (Auto) 0.6 % 09/09/22 18:45 Neut # (Auto) 7.23 K/uL (1.4-6.5) H 09/09/22 18:45 Lymph # (Auto) 3.42 K/uL (1.2-3.4) H 09/09/22 18:45 [place] # (Auto) 0.82 K/uL (0.24-0.82) 09/09/22 18:45 Eos # (Auto) 0.40 K/uL (0-0.50) 09/09/22 18:45 Baso # (Auto) 0.07 K/uL (0-0.2) 09/09/22 18:45 Immature Gran # (Auto) 0.05 K/uL (0.00-0.02) H 09/09/22 18:45 Sodium 134 mmol/L (136-145) L 09/09/22 18:45 Potassium 4.0 mmol/L (3.5-5.1) 09/09/22 18:45 Chloride 97 mmol/L (98-107) L 09/09/22 18:45 Carbon Dioxide 29 mmol/L (21-32) 09/09/22 18:45 Anion Gap 8 (3-11) 09/09/22 18:45 BUN 7 mg/dl (6-23) 09/09/22 18:45 Creatinine 0.63 mg/dl (0.6-1.2) 09/09/22 18:45 Est Cr Clr Drug Dosing 187.9 ml/min 09/09/22 18:45 Est GFR ( Amer) 131.0 ml/min 09/09/22 18:45 Est GFR (Non-Af Amer) 113.0 ml/min 09/09/22 18:45 BUN/Creatinine Ratio 11.1 (10-20) 09/09/22 18:45 Glucose 363 mg/dl (70-99(Fasting)) H* 09/09/22 18:45 POC Glucose 263 mg/dl (70-99) H 09/09/22 23:34 Calcium 9.2 mg/dl (8.5-10.1) 09/09/22 18:45 Urine Color Yellow 09/09/22 23:25 Urine Appearance Clear (Clear) 09/09/22 23:25 Urine pH 6.0 (4.5-7.5) 09/09/22 23:25 Ur Specific [place] > 1.045 (1.000-1.030) H 09/09/22 23:25 Urine Protein Negative (Negative) 09/09/22 23:25 Urine Glucose (UA) 3+ (Negative) H 09/09/22 23:25 Urine Ketones Negative (Negative) 09/09/22 23:25 Urine Blood Negative (Negative) 09/09/22 23:25 Urine Nitrite Negative (Negative) 09/09/22 23:25 Urine Bilirubin Negative (Negative) 09/09/22 23:25 Urine Urobilinogen Negative (Negative) 09/09/22 23:25 Ur Leukocyte Esterase Negative (Negative) 09/09/22 23:25 Urine Test Negative (Negative) 09/09/22 23:25 SARS-CoV-2, RNA, NAAT NEGATIVE (NEGATIVE) 09/09/22 Unknown Impressions Breast Ultrasound 09/09/22 17:15 US breast RT limited CLINICAL HISTORY: EVAL ABSCESS TECHNIQUE: Real-time grayscale sonographic images of the right breast 9:00 were obtained. Comparison: Comparison is made to breast ultrasound 04/22/2022 FINDINGS/IMPRESSION: Anechoic/hypoechoic fluid collection measuring 2.9 x 1.0 x 4.0 compatible with abscess which has enlarged from prior exam. ACT 112: Negative or not required by law. Electronically signed by: Pete Medina M.D. 09/09/2022 6:01 PM PG Care Time/CCT Total # of Minutes Spent Total Time Spent with Patient: Total time spent is greater than 50% in coordination of care (as documented) at patient's floor/unit and/or counseling patient: Coding Level of Care Code INP/OBS CONSULT LVL 3, 45 MIN Diagnoses Abscess of right breast N61.1 Benign essential hypertension I10 DM2 (diabetes mellitus, type 2) E11.9 Hyperlipidemia E78.5 Neuropathy G62.9 Anxiety and depression F41.9; F32.9
[2022-09-09] MEDS ORDERED: ESCITALOPRAM OXALATE 20 MG TAB PO SCH (22:19)
[2022-09-09] MEDS ORDERED: PHARMACY GLYCEMIC MGMT CONSULT PRN (22:19)
[2022-09-09] MEDS ORDERED: GABAPENTIN 400 MG CAP PO SCH (22:19)
[2022-09-09] MEDS ORDERED: ALBUTEROL HFA 8 GM INHALER INH PRN (22:19)
[2022-09-09] MEDS: ACETAMINOPHEN 1,000 MG/100 ML VIAL IV PRN (22:54)
[2022-09-09 23:38] LABS: Appearance Urine Clear (Clear); Bilirubin Urine Negative (Negative); Blood Urine Negative (Negative); Color Urine Yellow; Glucose Urine UA 3+ (Negative); Ketones Urine Negative (Negative); Leukocyte Esterase Urine Negative (Negative); Nitrite Urine Negative (Negative); Protein Urine Negative (Negative); Specific Gravity Urine > 1.045 (1.000-1.030); Urobilinogen Urine Negative (Negative)
[2022-09-09 23:41] LABS: Pregnancy Test, Urine Negative (Negative)
[2022-09-09] MEDS: INSULIN ASPART PER UNIT SC SCH (23:53)
[2022-09-09] MEDS: PIPERACILLIN/TAZOBACTAM 4.5 GM in DEXTROSE 5% 100 ML IV SCH (23:54)
[2022-09-09] MEDS: NICOTINE 21 MG/24 HR TDSY TD SCH (23:54)
[2022-09-10] MEDS ORDERED: KETOROLAC TROMETHAMINE 15 MG/ML VIAL IV ONE (01:37)
[2022-09-10] MEDS: INSULIN ASPART PER UNIT SC SCH ×4 (04:04→18:08)
--- NOTE | 2022-09-10 07:07 | Anesthesiology Consultation ---
Date of Service September 10, 2022 Assessment & Plan (1) Encounter for pre-operative examination: Chart Review Chart Review: entry engineer initiated History Surgery Operation Date: 09/10/22 09:45 Proposed Procedures p Right Breast Incision and Drainage - Ismael Tadeo DO Height/Weight Height: 5 ft 9 in Weight: 149 kg Allergies Allergy/AdvReac Type Severity Reaction Status Date / Time codeine Allergy Severe SHORTNESS Verified 09/08/22 15:34 OF BREATH FIBERGLASS Allergy Unknown AIRWAY Uncoded 09/08/22 15:34 SWELLING FROM FIBERGLASS DUST WHEN CAST CAME OFF Medications Home Medications Medication Instructions Recorded Confirmed Last Taken clindamycin phosphate 1 % topical 1 applic topical DAILY #30 grams 12/10/20 Unknown gel budesonide-formoterol HFA 80 2 puff inhalation BID #10.2 grams 03/09/21 09/08/22 Unknown mcg-4.5 mcg/actuation aerosol inhaler (Symbicort) cholecalciferol (vitamin D3) 1,250 50,000 unit PO .weekly #12 caps 08/28/21 09/08/22 Unknown mcg (50,000 unit) capsule rosuvastatin 10 mg tablet 10 mg PO DAILY #30 tabs 08/28/21 09/08/22 Unknown albuterol sulfate 90 mcg/actuation 2 puff inhalation QID PRN Wheezing 09/15/21 09/08/22 Unknown aerosol inhaler #18 grams blood sugar diagnostic (Blood #100 ea 12/15/21 09/08/22 Unknown Glucose Test strips) blood-glucose meter #1 ea 12/15/21 09/08/22 Unknown cetirizine 10 mg tablet (Zyrtec) 10 mg PO DAILY #30 tabs 12/15/21 09/08/22 Unknown lancets (Lancets,Thin) #100 ea 12/15/21 09/08/22 Unknown triamcinolone acetonide 0.1 % 1 applic topical BID #60 mL 12/15/21 09/08/22 Unknown lotion cyclosporine 0.05 % eye drops 1 drp ophthalmic (eye) Q12H #1.5 mL 12/24/21 09/08/22 Unknown (Restasis MultiDose) metformin 500 mg tablet,extended 1,000 mg PO BID #120 tabs 12/24/21 09/08/22 Unknown release 24hr gabapentin 400 mg capsule 400 mg PO .COMPLEX #150 caps 03/16/22 09/08/22 Unknown clindamycin HCl 300 mg capsule 300 mg PO BID #60 caps 04/05/22 09/08/22 Unknown cyclobenzaprine 10 mg tablet 10 mg PO TID PRN muscle spasm #20 06/10/22 09/08/22 Unknown tabs escitalopram oxalate 20 mg tablet 20 mg PO QPM #30 tabs 06/13/22 09/08/22 Unknown triamcinolone acetonide 0.1 % 1 applic topical BID #80 grams 07/09/22 09/08/22 Unknown topical cream lisinopril 5 mg tablet 5 mg PO DAILY #90 tabs 08/02/22 09/08/22 Unknown meclizine 12.5 mg tablet 12.5 mg PO TID PRN dizziness #30 08/02/22 09/08/22 Unknown tabs hydrocodone 5 mg-acetaminophen 325 See Rx Instructions PO BID PRN 08/12/22 09/08/22 Unknown mg tablet pain #60 tabs nystatin 100,000 unit/gram topical 1 applic topical BID 2 weeks #30 09/01/22 09/08/22 Unknown ointment grams triamcinolone acetonide 0.1 % 1 applic topical BID 2 weeks #30 09/01/22 09/08/22 Unknown topical ointment grams metronidazole 0.75 % (37.5 mg/5 1 appful vaginal DAILY 5 days #70 09/04/22 09/08/22 Unknown gram) vaginal gel grams levonorgestrel 20 mcg/24 hours (8 intrauterine 09/08/22 09/08/22 Unknown yrs) 52 mg intrauterine device (Mirena) sulfamethoxazole 800 1 tab PO BID #20 tabs 09/08/22 09/08/22 Unknown mg-trimethoprim 160 mg tablet (Bactrim DS) Active Medications Generic Name Dose Route Start Last Admin Trade Name Freq PRN Reason Stop Dose Admin Escitalopram Oxalate 20 mg 09/09/22 22:19 09/09/22 23:24 Escitalopram Oxalate 20 Mg Tab PO 10/09/22 22:18 20 mg QPM PATRICIA Administration Gabapentin 1,200 mg 09/09/22 22:19 09/09/22 23:24 Gabapentin 400 Mg Cap PO 10/09/22 22:18 1,200 mg HS PATRICIA Administration Acetaminophen 1,000 mg in 100 mls @ 400 mls/hr 09/09/22 19:52 09/09/22 23:17 Ofirmev IV 09/12/22 19:51 Infused Q8H PRN Infusion pain Lactated Ringer's 1,000 mls @ 75 mls/hr 09/09/22 20:00 09/10/22 06:25 Lr IV 10/09/22 19:59 75 mls/hr .[id number] PATRICIA Infusion Piperacillin Sod/Tazobactam 120 mls @ 30 mls/hr 09/10/22 00:00 09/10/22 04:04 Sod 4.5 gm/ Dextrose IV 09/17/22 00:00 Infused Q8H PATRICIA Infusion Protocol Insulin Aspart 0 units 09/10/22 00:00 09/10/22 04:04 Insulin Aspart Per Unit SC 10/10/22 00:00 5 units Q4 PATRICIA Administration Nicotine 21 mg 09/10/22 09:00 09/09/22 23:54 Nicotine 21 Mg/24 Hr Tdsy TD 10/10/22 08:59 21 mg QAM PATRICIA Administration NPO Date Last Intake of Fluids: 09/09/22 Time Last Intake of Fluids: 23:59 Date Last Intake of Solids: 09/09/22 Time Last Intake of Solids: 23:59 Past Medical History Medical History Allergic rhinitis Anxiety and depression Asthma Chronic low back pain Current smoker Depression Diverticulitis h/o DM2 (diabetes mellitus, type 2) Factor 5 Leiden mutation, heterozygous Gestational hypertension Gout Hyperlipidemia Left cervical radiculopathy Leukocytosis Lumbar stenosis with neurogenic claudication Morbid obesity Neuropathy Oligomenorrhea TEODORA (obstructive sleep apnea) Skin lesion of face Vitamin D deficiency Past Family History Family History Father Diabetes Stroke Hypertension Mother PONV (postoperative nausea and vomiting) Slow to wake up after anesthesia Grandmother (Maternal) PONV (postoperative nausea and vomiting) Slow to wake up after anesthesia Breast cancer Denies family history of Ovarian cancer Colorectal cancer Past Surgical History Surgical History H/O colonoscopy H/O LEEP 2012, olivia 1-2 on biopsy, olivia 1 with neg margins on leep H/O neck surgery ACDF 09/2018 History of back surgery x2; L3-L5 lumbar laminectomy, decompression, PSF, pedicle screw fixation, iliac bolt fixation= 11/29/16 Hx of appendectomy Hx of cholecystectomy Hx of foot surgery LEFT S/P lumbar microdiscectomy "L4-5" Social History Smoking Status: Current every day smoker tobacco type: cigarettes Smoking cigarettes per day: 20 Do You Dip or Chew Tobacco: No Hx Alcohol Use: Yes Alcohol type: hard liquor alcohol intake frequency: holidays/special occasions only Hx Substance Use: No substance use type: does not use Physical Exam Vital Signs Last Vital Signs Temp 98.1 F 09/09/22 22:20 Pulse 82 09/10/22 04:07 Resp 18 09/09/22 22:20 BP 119/75 09/10/22 04:07 Pulse Ox 97 09/09/22 22:20 O2 Del Method 09/09/22 22:20 Testing Laboratory Results 09/09/22 18:45 09/09/22 18:45 Urine Color Yellow 09/09/22 23:25 Urine Appearance Clear (Clear) 09/09/22 23:25 Urine pH 6.0 (4.5-7.5) 09/09/22 23:25 Ur Specific [place] > 1.045 (1.000-1.030) H 09/09/22 23:25 Urine Protein Negative (Negative) 09/09/22 23:25 Urine Glucose (UA) 3+ (Negative) H 09/09/22 23:25 Urine Ketones Negative (Negative) 09/09/22 23:25 Urine Nitrite Negative (Negative) 09/09/22 23:25 Ur Leukocyte Esterase Negative (Negative) 09/09/22 23:25 Urine Test Negative (Negative) 09/09/22 23:25 09/10/22 09/09/22 09/09/22 03:58 23:34 21:23 POC Glucose 245 H 263 H 348 H* 09/09/22 23:25 Urine Test Negative Cervical Spine Date: 06/10/22 FINDINGS: AP, lateral, bilateral oblique, and odontoid views of the cervical spine are obtained. No prior studies are available for comparison at the time of dictation. The skeletal structures are well-mineralized. There is no radiographic evidence of fracture or subluxation involving the cervical spine. The odontoid process and lateral masses appear intact as seen on the open-mouth view. The atlantodental articulation is maintained. The spinolaminar line is preserved. Vertebral body height and alignment are maintained throughout the cervical spine. There is straightening of the cervical lordosis. There has been multilevel discectomy and spinal fusion throughout the cervical spine. This extends from C4 to C7. A residual screw fragment is present within the body of C6. Anterior hardware is noted at C6-C7. The spinous processes appear intact. The C2-C3 and C3-C4 disc spaces are normal. There is no radiographic evidence of high-grade neural foraminal stenosis on the oblique views. Mild facet arthr opathy is seen on the AP view. The prevertebral soft tissues are within normal limits. IMPRESSION: 1. No acute bony abnormality is seen involving the cervical spine. 2. Postsurgical change as above.
[2022-09-10] MEDS: NICOTINE 21 MG/24 HR TDSY TD SCH (07:43)
[2022-09-10] MEDS: GABAPENTIN 400 MG CAP PO SCH ×2 (07:44→15:55)
[2022-09-10] MEDS: PIPERACILLIN/TAZOBACTAM 4.5 GM in DEXTROSE 5% 100 ML IV SCH ×2 (07:45→18:07)
[2022-09-10] MEDS: ACETAMINOPHEN 1,000 MG/100 ML VIAL IV PRN (07:49)
--- NOTE | 2022-09-10 08:40 | Pharmacy Report ---
Pharmacy Glycemic Short Note 2 - Date of Service September 10, 2022 - Glycemic Short BSG Results (Last 24 hours): 09/09/22 09/09/22 09/09/22 18:45 21:23 23:34 Glucose 363 H* POC Glucose 348 H* 263 H 09/10/22 09/10/22 03:58 08:09 Glucose POC Glucose 245 H 236 H OUTPATIENT ANTIDIABETIC REGIMEN: * metformin 1 gm bid * A1c 8.7% 12/2021 - ordered A1c for 09/11/22 ASSESSMENT: * 37 year old presenting with right breast pain, concerns for abscess. Plan for I&D today. Patient is type 2 diabetic managed only on metformin at home. * BSGs on admission in the 300s, potentially related to infection - Required 18 units of insulin yesterday. Blood sugars improving slightly but still in >200s this morning. Patient NPO for procedure today, however likely could benefit from small dose of basal insulin. Will give 15 units x 1 now - will trend BSGs and potentially add in scale for Lantus at bedtime if BSGs still greater then 200. Will start stress of 2 for novolog * A1c ordered for tomorrow PLAN FOR INPATIENT GLYCEMIC CONTROL: * Hold outpatient oral diabetes medications * Basal insulin * Lantus 15 units x 1 now (NPO this AM) * Lantus 0-10 units HS if BSGs still >200 * Bolus insulin * NovoLog per scale ACHS or Q6hrs while NPO * Goal Range: Low 110 mg/dL - High 140 mg/dL * Correction Factor: 25 mg/dL/unit * Nutritional / Prandial insulin per carb ratio of 1 unit per 8 grams CHO consumed
[2022-09-10] MEDS ORDERED: CARBOHYDRATES FOR HYPOGLYCEMIA PO PRN (08:45)
[2022-09-10] MEDS ORDERED: GLUCOSE 40% GEL 15 GM TUBE PO PRN (08:45)
[2022-09-10] MEDS ORDERED: GLUCOSE 10 TAB/TUBE PO PRN (08:45)
[2022-09-10] MEDS ORDERED: GLUCAGON FOR INJ 1 MG VIAL IM PRN (08:45)
[2022-09-10] MEDS ORDERED: DEXTROSE 50% 50 ML SYRINGE IV PRN (08:45)
[2022-09-10] MEDS ORDERED: LANTUS PER UNIT CHARGE SQ ONE (09:00)
[2022-09-10] MEDS ORDERED: FLUTICASONE/VILANTEROL 100/25MCG 14 PUFFS/INHALER INH SCH (09:00)
[2022-09-10] MEDS: LACTATED RINGER'S 1,000 ML IV SCH (11:48)
[2022-09-10] MEDS ORDERED: ATROPINE SULFATE 0.1 MG/ML 10ML SYR IV PRN (13:31)
[2022-09-10] MEDS ORDERED: ePHEDrine sulfate 50 MG/ML AMP IV PRN (13:31)
[2022-09-10] MEDS ORDERED: HYDROmorphone INJ 2 MG/ML SYR/VIAL IV PRN (13:31)
[2022-09-10] MEDS ORDERED: PROMETHAZINE HCL 12.5 MG in SODIUM CHLORIDE 0.9% 50 ML IV PRN (13:31)
[2022-09-10] MEDS ORDERED: ONDANSETRON INJ 2 MG/ML 2 ML VIAL IV PRN (13:31)
--- NOTE | 2022-09-10 13:55 | Surgery Progress Note ---
Date of Service September 10, 2022 Assessment & Plan (1) Breast abscess: Plan: We will plan on I&D of a right breast abscess in the operating room today Consent was obtained, risk discussed including bleeding, infection, recurrence, nonhealing wound Admission and Anticipated Discharge Date Admission Date: September 09, 2022 Subjective Patient seen and examined. Still with some right breast pain around the areola. No drainage. Afebrile. Review of Systems Constitutional: no fever and no chills Integumentary: + breast pain, + breast skin changes and + breast swelling Physical Exam Chest (Breasts): Additional Comments: Right breast with erythema and fluctuance laterally along the areolar skin border Results & Data ([facility]) Vital Signs (Past 12 Hours) Vital Signs Temp Pulse Pulse Resp BP Pulse Ox O2 Del Method 09/10/22 12:28 36.9 C 81 18 166/87 H 98 Room Air 09/10/22 07:26 36.6 C 78 16 130/79 94 Room Air 09/10/22 04:07 82 119/75 PG Care Time/CCT Total # of Minutes Spent Total Time Spent with Patient: Total time spent is greater than 50% in coordination of care (as documented) at patient's floor/unit and/or counseling patient: Coding Level of Care Code 01618 SUB INP/OBS CARE 1/25MIN Diagnoses Breast abscess N61.1
[2022-09-10] MEDS ORDERED: MIDAZOLAM HCL 1 MG/ML 2ML VIAL ONE (14:00)
[2022-09-10] MEDS ORDERED: fentaNYL citrate 100 MCG/2 ML VIAL ONE ×3 (14:00→14:42)
[2022-09-10] MEDS ORDERED: EPINEPHrine INJ 1 MG/ML AMP ONE (14:01)
[2022-09-10] MEDS ORDERED: BUPIVACAINE 0.5 % 5 MG/1 ML MPF 30ML VIAL ONE (14:02)
[2022-09-10] MEDS ORDERED: ONDANSETRON INJ 2 MG/ML 2 ML VIAL ONE (14:25)
[2022-09-10] MEDS ORDERED: LIDOCAINE 2% 2 ML VIAL/AMP(20MG/ML) INFIL ONE (14:25)
[2022-09-10] MEDS ORDERED: PROPOFOL IV EMULSION 10 MG/ML 20 ML VIAL IV ONE (14:25)
[2022-09-10] MEDS ORDERED: SUCCINYLCHOLINE CHLORIDE 20 MG/ML 10 ML VIAL IV ONE (14:37)
[2022-09-10] MEDS ORDERED: ROCURONIUM BROMIDE 10 MG/ML 5 ML VIAL IV ONE (14:37)
--- NOTE | 2022-09-10 14:39 | Post Operative Brief Note ---
PG Immediate Post Op with CF Date of Surgery September 10, 2022 Pre & Post Diagnosis Operation Date: 09/10/22 08:25 Pre-Op Diagnosis: right breast abscess Post-Op Diagnosis: right breast abscess I identified the patient and participated in the time-out.: Yes Procedure Operation Date: 09/10/22 08:25 Actual Procedures p Incision and Drainage Right Breast Abscess(Right) - Ismael Tadeo DO Surgeon Ismael Tadeo DO Accountant Tax None Estimated Blood Loss 5 Findings Consistent with Post-Op Diagnosis Specimens Specimen Description: 1. Right breast abscess fluid Anesthesia Type General Complications none Disposition Disposition: Recovery Room
[2022-09-10] MEDS ORDERED: KETOROLAC 30 MG/ML VIAL ONE (14:41)
--- NOTE | 2022-09-10 14:41 | Operative Report ---
PG Post Operative Report Pre & Post Diagnosis Operation Date: 09/10/22 08:25 Pre-Op Diagnosis: right breast abscess Post-Op Diagnosis: right breast abscess I identified the patient and participated in the time-out.: Yes Procedure Operation Date: 09/10/22 08:25 Actual Procedures p Incision and Drainage Right Breast Abscess (Right) - Ismael Tadeo DO Surgeon Ismael Tadeo DO Fly Rail Operator None Estimated Blood Loss 5 Findings Consistent with Post-Op Diagnosis Specimens Right breast abscess fluid for culture Drains None Anesthesia Type General Complications none Disposition Disposition: Recovery Room Indications 37 yo female with right breast abscess Description of Procedure The patient was brought to the OR and placed in the supine position. At this time she underwent General LMA anesthesia without issue. She was given appropriate pre-operative antibiotics. The right breast was prepped and draped in the usual sterile fashion. A timeout was called. The procedure was verified as Incision and drainage of right breast abscess. Surgical, anesthesia and nursing teams agreed and the procedure was begun. After injection of 0.25% Marcaine with epinephrine, an incision was made directly over the most fluctuant area of abscess using a #11 blade scalpel. This was at the areolar skin border laterally. Purulent fluid was encountered. Wide drainage was ensured. All loculations were broken up bluntly. At this time the incision was irrigated until clear. Hemostasis was achieved using electrocautery. Hemostasis was complete. The incision was packed with a 1 inch plain packing. Sterile dressing was applied. The patient was awakened from anesthesia and taking to PACU having remained stable throughout the entire case. All needle and sponge counts correct x 2. I attest to the content of the Intraoperative Record and any orders documented therein. Any exceptions are noted below.
[2022-09-10] MEDS: fentaNYL citrate 100 MCG/2 ML VIAL IV PRN ×2 (14:51→14:59)
--- NOTE | 2022-09-10 15:15 | Anesthesiology Progress Note ---
Date of Service September 10, 2022 Anesthesia Post Procedure Vital Signs Vital Signs: Temp Pulse Pulse Pulse Pulse Resp BP 09/10/22 15:05 84 15 09/10/22 14:55 76 14 09/10/22 14:46 36.2 C L 80 12 09/10/22 12:28 36.9 C 81 18 09/10/22 07:26 36.6 C 78 16 09/10/22 04:07 82 09/09/22 22:20 36.7 C 88 18 09/09/22 21:45 84 20 09/09/22 18:00 79 16 09/09/22 17:05 36.2 C L 90 18 156/101 H BP Pulse Ox O2 Del Method O2 Flow Rate 09/10/22 15:05 140/82 95 Room Air 09/10/22 14:55 127/99 100 Oxymask 4 09/10/22 14:46 137/93 99 Oxymask 8 09/10/22 12:28 166/87 H 98 Room Air 09/10/22 07:26 130/79 94 Room Air 09/10/22 04:07 119/75 09/09/22 22:20 174/91 H 97 Room Air 09/09/22 21:45 128/85 98 Room Air 09/09/22 18:00 165/95 H 96 Room Air 09/09/22 17:05 97 Room Air Pain Intensity Right Breast: Pain Intensity: 3 Transfer of Care Handoff Completed per policy Notes Mental Status: alert / awake / arousable and participated in evaluation Patient Amnestic to Procedure: Yes Nausea / Vomiting: adequately controlled Pain: adequately controlled Airway Patency, RR, SpO2: stable & adequate BP & HR: stable & adequate Hydration State: stable & adequate Anesthetic Complications: no major complications apparent
--- NOTE | 2022-09-10 15:27 | Hospitalist Progress Note ---
Date of Service September 10, 2022 Assessment & Plan (1) Abscess of right breast: Plan: Incision and drainage completed today, September 10. Cultures pending. She remains on intravenous Zosyn, day 2 (2) Benign essential hypertension: Plan: Controlled with current medication. (3) DM2 (diabetes mellitus, type 2): Plan: ADA diet. Sliding scale coverage as needed. Insulin therapy while hospitalized. Resume usual home medications at discharge. Improving (4) Hyperlipidemia: Plan: Continue statin therapy (5) Neuropathy: Plan: Continue gabapentin therapy (6) Anxiety and depression: Plan: Stable with current medical management Plan Anticipate eventual discharge to home by primary service. Admission and Anticipated Discharge Date Admission Date: September 09, 2022 Subjective Alert and oriented. No distress. The patient was seen preoperatively today. She subsequently has had right breast abscess incision and drainage. She is currently on intravenous Zosyn. Glucose improved to 236 this morning. Review of Systems Review of Systems: Constitutional-no fever or chills ENT-no blurred vision, no double vision, no epistaxis, no sore throat Respiratory-no cough, no wheezing, no shortness of breath Cardiac-no palpitations, no chest pain, no syncope GI-no nausea, vomiting, diarrhea, melena, hematochezia -no urinary retention, no urinary incontinence, no dysuria, no hematuria Musculoskeletal-no joint pain, no muscle tenderness Skin-no bruising, no rashes, no pruritus Neuro-no isolated weakness, no paresthesia, no weakness Psych-no depression, no anxiety Physical Exam Physical Exam: General-alert and oriented x3, no fevers, no chills HEENT-head atraumatic and normocephalic, pupils equal and reactive to light, extraocular muscles intact Neck-no lymphadenopathy or thyromegaly, trachea midline Chest-clear to auscultation percussion. No rales wheezing or rhonchi Cardiac-regular rate and rhythm, normal S1 and S2 Abdomen-normal bowel sounds, nontender, no hepatosplenomegaly Extremities-no cyanosis, clubbing, or edema Breastsright breast abscess and erythema noted Neuro-cranial nerves II through XII intact, motor and sensory function within normal limits, strength symmetrical , no focal deficits Psych-normal affect, normal mood Results & Data Results & Data ([facility]) Vital Signs (Past 12 Hours) Vital Signs Temp Pulse Pulse Pulse Resp BP Pulse Ox 09/10/22 15:15 36.6 C 81 12 135/97 94 09/10/22 15:05 84 15 140/82 95 09/10/22 14:55 76 14 127/99 100 09/10/22 14:46 36.2 C L 80 12 137/93 99 09/10/22 12:28 36.9 C 81 18 166/87 H 98 09/10/22 07:26 36.6 C 78 16 130/79 94 09/10/22 04:07 82 119/75 O2 Del Method O2 Flow Rate 09/10/22 15:15 Room Air 09/10/22 15:05 Room Air 09/10/22 14:55 Oxymask 4 09/10/22 14:46 Oxymask 8 09/10/22 12:28 Room Air 09/10/22 07:26 Room Air 09/10/22 04:07 Laboratory Results 09/09/22 18:45 09/09/22 18:45 PG Care Time/CCT Total # of Minutes Spent Total Time Spent with Patient: Total time spent is greater than 50% in coordination of care (as documented) at patient's floor/unit and/or counseling patient: Coding Level of Care Code 67624 SUB INP/OBS CARE 3/50MIN Diagnoses Abscess of right breast N61.1 Benign essential hypertension I10 DM2 (diabetes mellitus, type 2) E11.9 Hyperlipidemia E78.5 Neuropathy G62.9 Anxiety and depression F41.9; F32.9
[2022-09-10] MEDS ORDERED: MoRPHine SULFATE 2 MG/ML CARP IV PRN ×2 (15:28→15:37)
[2022-09-10] MEDS ORDERED: HYDROCODONE/ACETAMOPHEN 5/325MG TAB PO PRN ×2 (15:28)
[2022-09-10] MEDS ORDERED: LANTUS PER UNIT CHARGE SQ SCH (21:00)
--- NOTE | 2022-09-16 20:08 | Discharge Summary ---
Date of Service September 16, 2022 Admission HPI Per Admitting Provider This is a 37-year-old female who presented to the emergency department secondary to right breast pain. The patient relates that back in April 2022 she noticed a lump on her breast. At that time she had an ultrasound that showed a 1.7 x 0.5 x 1.9 cm structure concerning for an abscess. The patient said she was given 10 days of antibiotics but she is unsure of the antibiotic she received. She notes that this area improved and she never sought follow-up. At that time the patient said that she did not have any tenderness or drainage from the affected area and she was not having any fevers. The patient notes that at 3:00 AM on 09/08/2022 she noticed a lump on her right breast with some erythema and warmth. She does not have any fevers, shakes, or chills. She is not having any nausea or vomiting. The patient says that the area was tender to palpation. Because of this she did seek medical attention with her [employer] service who placed her on Bactrim. She notes that since she has been on Bactrim she has not noted any significant improvement so she presented to the emergency department. It is nowhere the mention that the patient reports that she never had to have any incision and drainage of breast abscesses before. She also reports that she is diabetic. I did question the patient on if there is any drainage from the affected area and she did note that there was a small punctate amount of pus that was drained at the time of an ultrasound that was performed in the emergency department. Today in the emergency department she did have a breast ultrasound that showed that the affected area was now 2.9 x 1.0 x 4.0 cm. This was concerning for an abscess. No laboratories were drawn. Since arrival to the emergency department the patient has received antibiotics in form of Rocephin. At the time of my interview she was resting comfortably in bed and she was in no distress. It is noteworthy to mention that since arrival to the emergency department the patient has been normotensive without tachycardia and she has been afebrile. Discharge Data Consultations 09/09/22 19:55 ED Decision to Admit Stat 09/09/22 20:43 Consult Hospitalist Stat Procedures Performed Operation Date: 09/10/22 08:25 Actual Procedures p Right Breast Incision and Drainage(Right) - Ismael Tadeo DO Hospital Course (1) Abscess of right breast: Date of admission 09/09/2022 Date of discharge 09/10/2022 This patient presented to the emergency department on 09/08/2022 secondary to right breast pain. Patient had an ultrasound that revealed that she had a breast abscess. As patient was diabetic she was admitted to the hospital and placed on antibiotics. The day following admission the patient was taken the operating room where Dr. Ismael Tadeo performed an incision and drainage of a right breast abscess. Following this procedure patient was felt to be stable for discharge home. She was instructed on appropriate wound care, diet, and activity. She was told to follow-up with Dr. Tadeo in approximately 1 week. Coding Level of Care Code None Diagnoses Abscess of right breast N61.1
== END 2022-09-10 18:49 | disposition home or self-care (01) | DRG 600 ==
LOC: ED 16:42 → SUPCPDRO 19:59 → 3E 19:59